=== PATIENT | male | born 1930 | race Caucasian/White ===

== ENCOUNTER 2018-01-08 19:36 | Emergency (ER) | payer MEDICARE ==
[2018-01-08 19:51] VITALS: PULSE 80; RESP 14; TEMP 98.5; O2SAT 97
[2018-01-08 20:37] LABS: BASO # 0.1 K/uL (0.0-0.2); EOS # 0.1 K/uL (0.0-0.7); EOS % 1.2 % (0.0-4.0); HEMOGLOBIN 10.2 g/dL (12.0-18.0); LYMPH # 2.5 K/uL (1.0-4.3); LYMPH % 35.6 % (20.0-40.0); MEAN CELL VOLUME 78.2 fL (80.0-94.0); MEAN CORPUSCULAR HEMOGLOBIN 25.4 pg (27.0-31.0); MEAN CORPUSCULAR HGB CONC 32.5 g/dL (33.0-37.0); MEAN PLATELET VOLUME 8.1 fL (7.2-11.7); MONO # 0.6 K/uL (0.0-0.8); MONO % 8.7 % (0.0-10.0); NEUT # 3.7 K/uL (1.8-7.0); NEUT % 53.5 % (50.0-75.0); RED CELL DISTRIBUTION WIDTH 16.6 % (11.5-14.5); WHITE BLOOD COUNT 6.9 K/uL (4.8-10.8)
[2018-01-08 20:49] LABS: ALB/GLOB RATIO 1.3 (1.0-2.1); ALBUMIN 4.5 g/dL (3.5-5.0); ALT/SGPT 40 U/L (21-72); AST/SGOT 41 U/L (17-59); BLOOD UREA NITROGEN 18 mg/dL (9-20); CALCIUM 9.6 mg/dl (8.6-10.4); GFR NON-AFRICAN AMERICAN > 60
[2018-01-08 20:54] LABS: PROTHROMBIN TIME 11.4 SECONDS (9.7-12.2)
--- NOTE | 2018-01-08 21:06 | C.PDOC ---
History Of Present Illness 87 y/o male, w/PMhx of HTN, presents to the ER complaining of frontal headache which has been present for the past 1 day. Patient states that the pain is very mild. Patient reports that he usually never gets a headache, he decided to check his bp which was in the 230's/110's. Then, he took his normally scheduled bp medication and 1 extra pill which he missed in the morning today. Denies having associated vision changes, nausea, vomiting, CP, and SOB. Time Seen by Provider: 01/08/18 20:35 Chief Complaint (Nursing): High Blood Pressure History Per: Patient History/Exam Limitations: no limitations Onset/Duration Of Symptoms: Days Current Symptoms Are (Timing): Still Present Severity: Moderate Past Medical History Reviewed: Historical Data, Nursing Documentation, Vital Signs Vital Signs: Last Vital Signs Temp 98.5 F 01/08/18 19:48 Pulse 80 01/08/18 19:48 Resp 14 01/08/18 19:48 BP 230/87 H 01/08/18 19:48 Pulse Ox 97 01/08/18 19:48 - Medical History PMH: HTN Surgical History: No Surg Hx Family History: States: No Known Family Hx - Social History Hx Alcohol Use: Yes Hx Substance Use: No - Immunization History Hx Tetanus Toxoid Vaccination: No Hx Influenza Vaccination: Yes Hx Pneumococcal Vaccination: No Review Of Systems Except As Marked, All Systems Reviewed And Found Negative. Constitutional: Negative for: Fever, Chills Cardiovascular: Negative for: Chest Pain Respiratory: Negative for: Shortness of Breath Gastrointestinal: Negative for: Nausea, Vomiting Neurological: Positive for: Headache Physical Exam - Physical Exam Additional Physical Exam Comments: Constitutional: No acute distress. Head: Normocephalic. Atraumatic. Eyes: PERRL. ENT: Moist mucous membranes. Neck: Supple. Cardiovascular: Regular rate. Radial pulse 2+ bilaterally. Chest: No tenderness. Respiratory: Clear to auscultation bilaterally. GI: Soft. Nontender. Nondistended. Back: No CVA tenderness. Musculoskeletal: No tenderness or swelling of extremities. Skin: No rash. Neurologic: Alert, no focal deficit. ED Course And Treatment - Laboratory Results Result Diagrams: 01/08/18 20:26 01/08/18 20:26 O2 Sat by Pulse Oximetry: 97 (RA) Pulse Ox Interpretation: Normal - CT Scan/US CT Head Other Rad Studies (CT/US): Read By Radiologist CT/US Interpretation: Name:ROMAIN BLACK Exam Date:Jan 08, 2018 9:56:42 PM EDT. Modality Type:CT\SR. Description:CT - BRAIN. Gender:M Laterality:Not applicable. :32 Referring Physician:Chauncey Calderon). EXAM: CT Head Without IV contrast. CLINICAL HISTORY: Headache. TECHNIQUE: Axial computed tomography images of the head/brain without intravenous contrast. COMPARISON: None provided. FINDINGS: BRAIN. No acute intraparenchymal hemorrhage. No mass lesion. No CT evidence for acute territorial infarct. No midline shift or extra-axial collections. VENTRICLES: No hydrocephalus. ORBITS: The orbits are unremarkable. SINUSES AND MASTOIDS: The paranasal sinuses and mastoid air cells are clear. BONES: No fracture. IMPRESSION: No acute intracranial abnormality. . Electronically signed on Jan 08, 2018 10:20:30 PM EDT by: Juan Spring M.D., Certified by [facility] Medical Decision Making Medical Decision Making: Plan: --Labs --EKG --CT-Head Patient in no distress. Discharged home, f/u PMD, return to ED for worsening pain, vision change, vomiting, chest pain, dyspnea, or any other problem. Disposition - Disposition Disposition: HOME/ ROUTINE Disposition Time: 22:56 Condition: STABLE Instructions: High Blood Pressure in Adults Forms: [facility] ([place]) - Clinical Impression Clinical Impression: Hypertension - Scribe Statement The provider has reviewed the documentation as recorded by the Emma Chapa Provider Attestation: All medical record entries made by the Emma were at my direction and personally dictated by me. I have reviewed the chart and agree that the record accurately reflects my personal performance of the history, physical exam, medical decision making, and the department course for this patient. I have also personally directed, reviewed, and agree with the discharge instructions and disposition.
[2018-01-08 22:58] VITALS: BP 188/86
--- NOTE | 2018-01-09 07:45 | CT ---
Date of service: 01/08/2018 PROCEDURE: CT HEAD WITHOUT CONTRAST. HISTORY: Headache. Hypertension. COMPARISON: None available. TECHNIQUE: Axial computed tomography images were obtained through the head/brain without intravenous contrast. Radiation dose: Total exam DLP = 1169 mGy-cm. This CT exam was performed using one or more of the following dose reduction techniques: Automated exposure control, adjustment of the mA and/or kV according to patient size, and/or use of iterative reconstruction technique. FINDINGS: HEMORRHAGE: No intracranial hemorrhage. BRAIN: No mass effect or edema. Scattered focal lucencies in the subcortical and periventricular white matter suggestive for chronic microvascular ischemic change. Punctate left basal ganglia lacunar infarct. VENTRICLES: Unremarkable. No hydrocephalus. CALVARIUM: Unremarkable. PARANASAL SINUSES: Unremarkable as visualized. No significant inflammatory changes. MASTOID AIR CELLS: Unremarkable as visualized. No inflammatory changes. OTHER FINDINGS: Soft tissue swelling overlying the left parietal cranium. IMPRESSION: No acute intracranial abnormality. Chronic microvascular ischemic changes. If symptoms persists, consider correlation with MRI. These findings were preliminarily reported on 01/08/2018 at 10:[address] Juan Spring from [facility].
--- NOTE | 2018-01-10 08:04 | CARD ---
APPROVED REPORT Date of service: 01/08/2018 EKG Measurement Heart [id number] <Conclusion> Sinus rhythm with 1st degree AV block Otherwise normal ECG
== END 2018-01-08 23:05 | disposition home or self-care (01) ==
LOC: C.ER 19:36
DX: R51 Headache (principal)

== ENCOUNTER 2018-07-16 13:42 | Inpatient (IN) | payer MEDICARE ==
--- NOTE | 2018-07-16 15:40 | C.PDOC ---
History Of Present Illness 87 year old male presents to ED with complaint of dizziness, SOB, and dark stool for the past week. He states that he has been taking Pepto-Bismol for his dark stools. Patient was sent to the ED by his PMD (Dr. Orta). Patient was recently told that he has anemia. Patient also complains of stomach discomfort. Patient also reports that he had an endoscopy done by Dr. Keys. He also reports that he had a cardiac work-up done 1 month ago by his chemistry instructor, Dr. Mejia, and that everything was normal. Patient denies nausea, vomiting, fever, and chills. Time Seen by Provider: 07/16/18 14:49 Chief Complaint (Nursing): Abdominal Pain History Per: Patient, Family () History/Exam Limitations: no limitations Onset/Duration Of Symptoms: Days (7) Current Symptoms Are (Timing): Still Present Location Of Pain/Discomfort: Diffuse Radiation Of Pain To:: None Quality Of Discomfort: Other (discomfort) Associated Symptoms: Other (dark stools, dizziness, SOB). denies: Fever, Ch ills, Nausea, Vomiting, Diarrhea Exacerbating Factors: None Alleviating Factors: None Past Medical History Reviewed: Historical Data, Nursing Documentation, Vital Signs Vital Signs: Last Vital Signs Temp 97.6 F 07/16/18 15:08 Pulse 48 L 07/16/18 15:08 Resp 18 07/16/18 15:08 BP Pulse Ox 100 07/16/18 15:08 - Medical History PMH: Anemia, HTN Denies: Chronic Kidney Disease Surgical History: No Surg Hx Family History: States: Unknown Family Hx - Social History Hx Alcohol Use: Yes Hx Substance Use: No - Immunization History Hx Tetanus Toxoid Vaccination: No Hx Influenza Vaccination: Yes Hx Pneumococcal Vaccination: No Review Of Systems Constitutional: Negative for: Fever, Chills Respiratory: Positive for: Shortness of Breath Gastrointestinal: Positive for: Abdominal Pain, Melena. Negative for: Nausea, Vomiting, Diarrhea Neurological: Positive for: Dizziness Physical Exam - Physical Exam Appears: Non-toxic, No Acute Distress Skin: Warm, Dry, Jaundice Head: Atraumatic, Normacephalic Eye(s): bilateral: Normal Inspection, PERRL, EOMI Oral Mucosa: Moist Neck: Normal ROM, Supple Chest: Symmetrical, No Deformity Cardiovascular: Murmur Respiratory: No Accessory Muscle Use, No Rales, No Rhonchi, No Wheezing Gastrointestinal/Abdominal: Soft, No Tenderness, Distention, Ascites Back: Normal Inspection, No CVA Tenderness Extremity: Normal ROM, Other (2-3+ pitting edema) Pulses: Left Dorsalis Pedis: Normal, Right Dorsalis Pedis: Normal Neurological/Psych: Oriented x3, Normal Speech, Normal Cognition ED Course And Treatment - Laboratory Results Result Diagrams: 07/21/18 07:02 07/21/18 07:02 O2 Sat by Pulse Oximetry: 100 (in RA) Pulse Ox Interpretation: Normal Medical Decision Making Medical Decision Making: Plan: Abdomen/Pelvis CT , EKG, and CXR ordered for patient Labs ordered with CMP, CBC, and UA Patient states that he was seen by his PMD for the dark stools and had a fecal occult test which was negative. Patient states that he has been taking Pepto Bismol over the past week and is making the stool dark. The case was discussed wit Dr. Joe Acuna who agrees to admit the patient to his service. Disposition - Disposition Disposition: HOSPITALIZED Disposition Time: 18:50 Condition: STABLE - POA Present On Arrival: None - Clinical Impression Clinical Impression: Hypertension, Hyperkalemia, Anemia, Dark stools - PA / ROLL WEIGHER / Resident Statement MD/DO has reviewed & agrees with the documentation as recorded. (Indira Phan) - Scribe Statement The provider has reviewed the documentation as recorded by the Scribe (Indira Phan) All medical record entries made by the Scribe were at my direction and personally dictated by me. I have reviewed the chart and agree that the record accurately reflects my personal performance of the history, physical exam, medical decision making, and the department course for this patient. I have also personally directed, reviewed, and agree with the discharge instructions and disposition.
[2018-07-16 16:04] LABS: BASO # 0.1 K/uL (0.0-0.2); EOS % 0.6 % (0.0-4.0); HEMOGLOBIN 9.1 g/dL (12.0-18.0); LYMPH # 1.4 K/uL (1.0-4.3); MEAN CELL VOLUME 79.1 fL (80.0-94.0); MEAN CORPUSCULAR HEMOGLOBIN 26.7 pg (27.0-31.0); MEAN CORPUSCULAR HGB CONC 33.7 g/dL (33.0-37.0); MEAN PLATELET VOLUME 8.1 fL (7.2-11.7); MONO # 0.5 K/uL (0.0-0.8); MONO % 8.5 % (0.0-10.0); NEUT # 4.2 K/uL (1.8-7.0); NEUT % 66.9 % (50.0-75.0); RBC 3.4 Mil/uL (4.40-5.90); RED CELL DISTRIBUTION WIDTH 15.8 % (11.5-14.5); WHITE BLOOD COUNT 6.2 K/uL (4.8-10.8)
[2018-07-16 16:11] LABS: PROTHROMBIN TIME 11.3 SECONDS (9.7-12.2)
--- NOTE | 2018-07-16 16:25 | RAD ---
Date of service: 07/16/2018 PROCEDURE: CHEST RADIOGRAPH, 1 VIEW HISTORY: Abdominal pain COMPARISON: None available. FINDINGS: LUNGS: The lungs are well inflated and clear. PLEURA: No pneumothorax or pleural effusion. CARDIOVASCULAR: There is moderate cardiomegaly. No aortic atherosclerotic calcifications present. OSSEOUS STRUCTURES: Within normal limits for the patient's age. VISUALIZED UPPER ABDOMEN: Normal. OTHER FINDINGS: None. IMPRESSION: No active pulmonary disease. Moderate cardiomegaly.
[2018-07-16 16:33] LABS: ALB/GLOB RATIO 1.4 (1.0-2.1); ALBUMIN 4.3 g/dL (3.5-5.0); ALT/SGPT 34 U/L (21-72); AST/SGOT 50 U/L (17-59); BLOOD UREA NITROGEN 24 mg/dL (9-20); CALCIUM 9.4 mg/dl (8.6-10.4); GFR NON-AFRICAN AMERICAN 44; LIPASE 164 U/L (23-300)
[2018-07-16 16:39] LABS: B-TYPE NATRIURETIC PEPTIDE 2120 pg/mL (0-900)
[2018-07-16] MEDS ORDERED: Albuterol 0.083% Inhal Sol (2.5 mg/3 mL) UD INH STA (17:08)
[2018-07-16] MEDS ORDERED: Calcium Gluconate 4.65 mEq/10 ml Inj IVP STA (17:08)
[2018-07-16] MEDS ORDERED: Albuterol 0.083% Inhal Sol (2.5 mg/3 mL) UD ONE ×2 (17:43→17:47)
[2018-07-16] MEDS ORDERED: Iodixanol 320 mg/ml 150 ml Bottle IV ONE (18:15)
[2018-07-16 23:02] LABS: BLOOD UREA NITROGEN 21 mg/dL (9-20); CALCIUM 9.1 mg/dl (8.6-10.4); GFR NON-AFRICAN AMERICAN 52
[2018-07-17 04:49] LABS: URINE BILIRUBIN NEGATIVE (NEGATIVE); URINE BLOOD NEGATIVE (NEGATIVE); URINE CLARITY Clear (Clear); URINE COLOR YELLOW (YELLOW); URINE GLUCOSE (UA) NEGATIVE (Normal); URINE LEUKOCYTE ESTERASE NEGATIVE Leu/uL (Negative); URINE PROTEIN 30 mg/dL (NEGATIVE); URINE UROBILINOGEN 0.2 mg/dL (0.2-1.0)
--- NOTE | 2018-07-17 06:42 | CON ---
DATE: 07/16/2018 CARDIOLOGY CONSULTATION REASON FOR CONSULTATION: Symptomatic bradycardia. HISTORY OF PRESENT ILLNESS: The patient is an 87-year-old male who has a history of anemia, underwent upper and lower endoscopy as an outpatient, but does not recall what was found exactly on him. The patient also is being followed by his Community Organization Worker, Dr. Mejia, but denies having any cardiac catheterization or requiring any coronary intervention in the past. The patient presented with dizziness and weakness as well as easy fatigability after any minimal exertion. In the emergency room, the patient was found to be in sinus rhythm with Mobitz I second-degree AV block with a heart rate in the upper 50s and lower 60s. The patient denies any syncope and does not recall any palpitation. The patient does report black stools; however, he says this is not a new finding for him, and he had been reporting black stool in the past. SOCIAL HISTORY: The patient is nonsmoker, nondrinker. and lives with his . MEDICATIONS: The patient has received clonidine 0.2 mg in the emergency room, sublingual nitroglycerin and albuterol inhaler. The patient's home medications include clonidine, Januvia, Protonix, Coreg, valsartan/hydrochlorothiazide, Aldactone, minoxidil, hydralazine, and baby aspirin. REVIEW OF SYSTEMS: No hematemesis. No fever or chills. No syncope. No retrosternal chest pain. PHYSICAL EXAMINATION: GENERAL: The patient is an elderly male who does not appear to be in acute distress. VITAL SIGNS: Initial blood pressure on admission was 207/86, the last most recent blood pressure is 183/93, heart rate 48, and temperature 97.6. HEENT: Pale conjunctivae. CHEST: Clear. HEART: S1 and S2, regular. ABDOMEN: Soft. EXTREMITIES: No edema. LABORATORY DATA: EKG revealed sinus bradycardia at the rate of 52, Mobitz I second-degree AV block. Chest x-ray report: No active pulmonary disease. Mild cardiomegaly. Head CT scan done in January 2018: No acute findings at that time. Chronic microvascular ischemic changes. ASSESSMENT: 1. Uncontrolled hypertension. 2. 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 3. Chronic anemia. 4. Hyperkalemia. The patient's potassium is 6.1. 5. Rule out underlying congestive heart failure. The patient's proBNP is 2120. RECOMMENDATIONS: Sinus bradycardia and Mobitz I second-degree AV block could be related to the patient's current clonidine and beta-blockers and neither should be resumed. The patient's hyperkalemia could also be related to Aldactone, and that also should be discontinued. I will hold on any antiplatelet or anticoagulation until anemia workup is completed. In the meantime, I will administer Kayexalate 15 g p.o. now. Scheduled the patient for an echocardiogram. Obtain TSH level and obtain carotid Doppler. Repeat SMA-7 in the a.m. Darin Estes MD
[2018-07-17 08:01] LABS: BASO % 0.9 % (0.0-2.0); EOS % 0.8 % (0.0-4.0); HEMOGLOBIN 9.1 g/dL (12.0-18.0); LYMPH # 1.4 K/uL (1.0-4.3); LYMPH % 27.1 % (20.0-40.0); MEAN CELL VOLUME 80.2 fL (80.0-94.0); MEAN CORPUSCULAR HEMOGLOBIN 26.9 pg (27.0-31.0); MEAN CORPUSCULAR HGB CONC 33.6 g/dL (33.0-37.0); MEAN PLATELET VOLUME 8.4 fL (7.2-11.7); MONO # 0.6 K/uL (0.0-0.8); MONO % 11.6 % (0.0-10.0); NEUT % 59.6 % (50.0-75.0); RBC 3.39 Mil/uL (4.40-5.90); RED CELL DISTRIBUTION WIDTH 15.9 % (11.5-14.5); WHITE BLOOD COUNT 5.1 K/uL (4.8-10.8)
[2018-07-17 10:17] LABS: CALCIUM 9.6 mg/dl (8.6-10.4)
[2018-07-17] MEDS: Pantoprazole 40 mg EC Tab PO SCH (11:26)
[2018-07-17] MEDS ORDERED: Atropine 0.4 mg/ml Inj (1 mL) IV STA (12:26)
--- NOTE | 2018-07-17 12:26 | CT ---
Date of service: 07/16/2018 PROCEDURE: CT Abdomen and Pelvis with and without intravenous contrast HISTORY: diffuse pain, jaundice, ascites. COMPARISON: None. TECHNIQUE: Axial images of the abdomen were obtained in the pre contrast, portal venous and delayed phases of enhancement. Coronal and sagittal reformats were generated. Contrast dose: Radiation dose: Total exam DLP = 857.34 mGy-cm. This CT exam was performed using one or more of the following dose reduction techniques: Automated exposure control, adjustment of the mA and/or kV according to patient size, and/or use of iterative reconstruction technique. FINDINGS: LOWER THORAX: Small pericardial effusion. LIVER: Unremarkable. No gross lesion or ductal dilatation. GALLBLADDER AND BILE DUCTS: Unremarkable. PANCREAS: Unremarkable. No gross lesion or ductal dilatation. SPLEEN: Unremarkable. ADRENALS: Unremarkable. No mass. KIDNEYS AND URETERS: Severe bilateral hydroureteronephrosis. VASCULATURE: Unremarkable. No aortic aneurysm. No aortic atherosclerotic calcification or mural plaque present. BOWEL: Colonic diverticulosis. No obstruction. No gross mural thickening. APPENDIX: Normal appendix. PERITONEUM: Unremarkable. No free fluid. No free air. LYMPH NODES: Unremarkable. No enlarged lymph nodes. BLADDER: Bladder distention and trabeculation formation.. REPRODUCTIVE: Unremarkable. BONES: No acute fracture. OTHER FINDINGS: None. IMPRESSION: Chronic bladder outlet obstruction with severe bladder distention, trabeculation formation and cellule formation. Associated severe bilateral hydroureteronephrosis.
--- NOTE | 2018-07-17 15:06 | CP.PCM.CON ---
<AndriaAugie ching - Last Filed: 07/17/18 16:40> History of Present Illness - History of Present Illness History of Present Illness: Critical Care Consult Note for Dr. Waddell Patient is an 87 year old male with PMHx HTN, DM, and anemia, who says he initially presented to [facility] ED complaining of hypertension and dizziness for the past week. Patient states he has history of HTN and takes his meds daily. Patient states he took his blood pressure at a stand-alone BP machine in a store and noted SBP to be over 220 one week ago. Patient then went to another BP machine and SBP noted to be in 230s. Patient did nothing at this time, but states that over the next week he noticed himself feeling dizzy when he would stand up from a seated position. Due to persistent symptoms, patient came to ED and BP was found to be elevated and patient admitted for symptomatic hypertensive urgency. Patient states that today he has not felt any symptoms- denies dizziness, headache, SOB, n/v/d, numbness or tingling. Residential Recycle Driver, Dr. Peterson, contacted for heart block seen on bowling alley refinisher and ICU accepted patient for monitoring. He remains asymptomatic at this time. PMHx: HTN, DM, and anemia Surgical Hx: Denies Allergies: NKA Meds: Reviewed as per MAR Family hx: Denies PMD: Pt does not remember PMD name Review of Systems - Constitutional Constitutional: absent: Chills, Fever - EENT Eyes: absent: Diplopia, Photophobia Nose/Mouth/Throat: absent: Nasal Congestion, Nasal Discharge - Cardiovascular Cardiovascular: absent: Chest Pain, Dyspnea - Respiratory Respiratory: absent: Cough, Hemoptysis - Gastrointestinal Gastrointestinal: absent: Abdominal Pain, Nausea, Vomiting - Musculoskeletal Musculoskeletal: absent: Muscle Weakness, Stiffness, Tingling - Neurological Neurological: absent: Dizziness, Numbness, Weakness - Psychiatric Psychiatric: absent: Anxiety, Depression - Hematologic/Lymphatic Hematologic: absent: Easy Bleeding, Easy Bruising Past Patient History - Past Medical History & Family History Past Medical History?: Yes - Past Social History Smoking Status: Never Smoked - CARDIAC Hx Hypertension: Yes - RENAL Hx Chronic Kidney Disease: No - ENDOCRINE/METABOLIC Hx Endocrine Disorders: Yes Hx Diabetes Mellitus Type 2: Yes - HEMATOLOGICAL/ONCOLOGICAL Hx Blood Disorders: Yes Hx Anemia: Yes - INTEGUMENTARY Hx Dermatological Problems: No - MUSCULOSKELETAL/RHEUMATOLOGICAL Hx Musculoskeletal Disorders: No Hx Falls: No - GASTROINTESTINAL Hx Gastrointestinal Disorders: No - GENITOURINARY/GYNECOLOGICAL Hx Genitourinary Disorders: No - PSYCHIATRIC Hx Substance Use: No - SURGICAL HISTORY Hx Surgeries: No - ANESTHESIA Hx Anesthesia: No Meds Allergies/Adverse Reactions: Allergies Allergy/AdvReac Type Severity Reaction Status Date / Time No Known Allergies Allergy Unverified 01/08/18 19:51 - Medications Medications: Current Medications Aspirin (Aspirin Chewable) 81 mg PO DAILY [facility] Last Admin: 07/17/18 11:27 Dose: 81 mg Pantoprazole Sodium (Protonix Ec Tab) 40 mg PO DAILY [facility] Last Admin: 07/17/18 11:26 Dose: 40 mg Pneumococcal Polyvalent Vaccine (Pneumovax 23 Vaccine) 0.5 ml IM .ONCE ONE Stop: 07/19/18 10:01 Sitagliptin Phosphate (Januvia) 100 mg PO DAILY [facility] Last Admin: 07/17/18 11:27 Dose: 100 mg Physical Exam - Constitutional Appears: Non-toxic, No Acute Distress - Head Exam Head Exam: ATRAUMATIC, NORMOCEPHALIC - Eye Exam Eye Exam: EOMI, Normal appearance - ENT Exam ENT Exam: Mucous Membranes Moist - Respiratory Exam Respiratory Exam: Clear to Auscultation Bilateral, NORMAL BREATHING PATTERN. absent: Rhonchi, Wheezes - Cardiovascular Exam Cardiovascular Exam: REGULAR RHYTHM, +S1, +S2 - GI/Abdominal Exam GI & Abdominal Exam: Normal Bowel Sounds, Soft. absent: Tenderness - Neurological Exam Neurological exam: Alert, CN II-XII Intact, Oriented x3 - Psychiatric Exam Psychiatric exam: Normal Affect, Normal Mood - Skin Skin Exam: Dry, Intact Results - Vital Signs Recent Vital Signs: Last Vital Signs Temp 97.8 F 07/17/18 13:10 Pulse 51 L 07/17/18 14:30 Resp 19 07/17/18 14:30 BP 207/70 H 07/17/18 14:30 Pulse Ox 100 07/17/18 14:30 - Labs Result Diagrams: 07/17/18 07:49 07/17/18 09:58 Labs: Laboratory Results - last 24 hr 07/16/18 07/16/18 07/16/18 15:59 15:59 15:59 WBC 6.2 RBC 3.40 L Hgb 9.1 L Hct 26.9 L MCV 79.1 L MCH 26.7 L MCHC 33.7 RDW 15.8 H Plt Count 265 MPV 8.1 Neut % (Auto) 66.9 Lymph % (Auto) 23.0 [place] % (Auto) 8.5 Eos % (Auto) 0.6 Baso % (Auto) 1.0 Neut # (Auto) 4.2 Lymph # (Auto) 1.4 [place] # (Auto) 0.5 Eos # (Auto) 0.0 Baso # (Auto) 0.1 PT 11.3 INR 1.0 APTT 43 H Sodium 130 L Potassium 6.1 H Chloride 100 Carbon Dioxide 20 L Anion Gap 16 BUN 24 H Creatinine 1.5 Est GFR ( Amer) 54 Est GFR (Non-Af Amer) 44 POC Glucose (mg/dL) Random Glucose 76 D Calcium 9.4 Total Bilirubin 0.2 AST 50 ALT 34 Alkaline Phosphatase 58 Troponin I < 0.0120 NT-Pro-B Natriuret Pep 2120 H Total Protein 7.4 Albumin 4.3 Globulin 3.1 Albumin/Globulin Ratio 1.4 Lipase 164 TSH 3rd Generation Urine Color Urine Clarity Urine pH Ur Specific [place] Urine Protein Urine Glucose (UA) Urine Ketones Urine Blood Urine Nitrate Urine Bilirubin Urine Urobilinogen Ur Leukocyte Esterase Urine WBC (Auto) Urine RBC (Auto) 07/16/18 07/16/18 07/17/18 21:39 22:35 04:37 WBC RBC Hgb Hct MCV MCH MCHC RDW Plt Count MPV Neut % (Auto) Lymph % (Auto) [place] % (Auto) Eos % (Auto) Baso % (Auto) Neut # (Auto) Lymph # (Auto) [place] # (Auto) Eos # (Auto) Baso # (Auto) PT INR APTT Sodium 130 L Potassium 5.2 Chloride 105 Carbon Dioxide 20 L Anion Gap 10 BUN 21 H Creatinine 1.3 Est GFR ( Amer) > 60 Est GFR (Non-Af Amer) 52 POC Glucose (mg/dL) 124 H Random Glucose 61 L Calcium 9.1 Total Bilirubin AST ALT Alkaline Phosphatase Troponin I NT-Pro-B Natriuret Pep Total Protein Albumin Globulin Albumin/Globulin Ratio Lipase TSH 3rd Generation 26.00 H Urine Color Yellow Urine Clarity Clear Urine pH 6.0 Ur Specific [place] 1.010 Urine Protein 30 Urine Glucose (UA) Negative Urine Ketones Negative Urine Blood Negative Urine Nitrate Negative Urine Bilirubin Negative Urine Urobilinogen 0.2 Ur Leukocyte Esterase Negative Urine WBC (Auto) 1 Urine RBC (Auto) 1 07/17/18 07/17/18 07/17/18 06:29 07:49 09:58 WBC 5.1 RBC 3.39 L Hgb 9.1 L Hct 27.1 L MCV 80.2 MCH 26.9 L MCHC 33.6 RDW 15.9 H Plt Count 257 MPV 8.4 Neut % (Auto) 59.6 Lymph % (Auto) 27.1 [place] % (Auto) 11.6 H Eos % (Auto) 0.8 Baso % (Auto) 0.9 Neut # (Auto) 3.0 Lymph # (Auto) 1.4 [place] # (Auto) 0.6 Eos # (Auto) 0.0 Baso # (Auto) 0.0 PT INR APTT Sodium 130 L Potassium 5.7 H Chloride 103 Carbon Dioxide 20 L Anion Gap 13 BUN 25 H Creatinine 1.5 Est GFR ( Amer) 54 Est GFR (Non-Af Amer) 44 POC Glucose (mg/dL) 103 Random Glucose 98 D Calcium 9.6 Total Bilirubin AST ALT Alkaline Phosphatase Troponin I NT-Pro-B Natriuret Pep Total Protein Albumin Globulin Albumin/Globulin Ratio Lipase TSH 3rd Generation Urine Color Urine Clarity Urine pH Ur Specific [place] Urine Protein Urine Glucose (UA) Urine Ketones Urine Blood Urine Nitrate Urine Bilirubin Urine Urobilinogen Ur Leukocyte Esterase Urine WBC (Auto) Urine RBC (Auto) Assessment & Plan - Assessment and Plan (Free Text) Assessment: 87 year old male admitted to hospital for symptomatic hypertensive urgency, found to have 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 Cardio Second Degree Mobitz Type I Heart Block -Cardiology on consult, Dr. Peterson -Cardiac monitoring -Asymptomatic at this time -Patient likely requiring pacemaker placement -Plan for temporary transvenous pacemaker placement per cardio recs Hypertensive Urgency -Patient asymptomatic -Goal BP <160/100 with reduction of MAP to aprox 100mmHG (25-30% reduction) over next several hours -Monitor for symptoms, monitor HR Pulm -Saturating well on room air -Maintain SPO2>92% Heme/ID -HgB 9.1 - stable compared to yesterday (12/02) -Monitor daily CBC Endo DM -Home Januvia -Accuchecks ACHS -Hypoglycemia protocol Nephro -Adequate urine output -Monitor I and Os Neuro -A and O x3 GI Questionable GI bleed -Dark stools noted per ED note, but patient denies any kaylah blood or dark tarry stools -HgB stable 9.1, no changes from yesterday -Monitor CBC -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 Chemical anticoagulation c/i 2/2 questionable GI bleed -Protonix 40 mg PO daily Assessment and plan d/w Dr. Bairon Vegas, PGY-1 <Harman Waddell - Last Filed: 07/17/18 16:49> Meds - Medications Medications: Current Medications Aspirin (Aspirin Chewable) 81 mg PO DAILY [facility] Last Admin: 07/17/18 11:27 Dose: 81 mg Pantoprazole Sodium (Protonix Ec Tab) 40 mg PO DAILY [facility] Last Admin: 07/17/18 11:26 Dose: 40 mg Pneumococcal Polyvalent Vaccine (Pneumovax 23 Vaccine) 0.5 ml IM .ONCE ONE Stop: 07/19/18 10:01 Sitagliptin Phosphate (Januvia) 100 mg PO DAILY [facility] Last Admin: 07/17/18 11:27 Dose: 100 mg Results - Vital Signs Recent Vital Signs: Last Vital Signs Temp 97.8 F 07/17/18 16:00 Pulse 57 L 07/17/18 16:30 Resp 16 07/17/18 16:30 BP 164/72 H 07/17/18 16:30 Pulse Ox 99 07/17/18 16:30 - Labs Result Diagrams: 07/17/18 07:49 07/17/18 09:58 Labs: Laboratory Results - last 24 hr 07/16/18 07/16/18 07/17/18 21:39 22:35 04:37 WBC RBC Hgb Hct MCV MCH MCHC RDW Plt Count MPV Neut % (Auto) Lymph % (Auto) [place] % (Auto) Eos % (Auto) Baso % (Auto) Neut # (Auto) Lymph # (Auto) [place] # (Auto) Eos # (Auto) Baso # (Auto) Sodium 130 L Potassium 5.2 Chloride 105 Carbon Dioxide 20 L Anion Gap 10 BUN 21 H Creatinine 1.3 Est GFR ( Amer) > 60 Est GFR (Non-Af Amer) 52 POC Glucose (mg/dL) 124 H Random Glucose 61 L Calcium 9.1 TSH 3rd Generation 26.00 H Urine Color Yellow Urine Clarity Clear Urine pH 6.0 Ur Specific [place] 1.010 Urine Protein 30 Urine Glucose (UA) Negative Urine Ketones Negative Urine Blood Negative Urine Nitrate Negative Urine Bilirubin Negative Urine Urobilinogen 0.2 Ur Leukocyte Esterase Negative Urine WBC (Auto) 1 Urine RBC (Auto) 1 07/17/18 07/17/18 07/17/18 06:29 07:49 09:58 WBC 5.1 RBC 3.39 L Hgb 9.1 L Hct 27.1 L MCV 80.2 MCH 26.9 L MCHC 33.6 RDW 15.9 H Plt Count 257 MPV 8.4 Neut % (Auto) 59.6 Lymph % (Auto) 27.1 [place] % (Auto) 11.6 H Eos % (Auto) 0.8 Baso % (Auto) 0.9 Neut # (Auto) 3.0 Lymph # (Auto) 1.4 [place] # (Auto) 0.6 Eos # (Auto) 0.0 Baso # (Auto) 0.0 Sodium 130 L Potassium 5.7 H Chloride 103 Carbon Dioxide 20 L Anion Gap 13 BUN 25 H Creatinine 1.5 Est GFR ( Amer) 54 Est GFR (Non-Af Amer) 44 POC Glucose (mg/dL) 103 Random Glucose 98 D Calcium 9.6 TSH 3rd Generation Urine Color Urine Clarity Urine pH Ur Specific [place] Urine Protein Urine Glucose (UA) Urine Ketones Urine Blood Urine Nitrate Urine Bilirubin Urine Urobilinogen Ur Leukocyte Esterase Urine WBC (Auto) Urine RBC (Auto) 07/17/18 15:52 WBC RBC Hgb Hct MCV MCH MCHC RDW Plt Count MPV Neut % (Auto) Lymph % (Auto) [place] % (Auto) Eos % (Auto) Baso % (Auto) Neut # (Auto) Lymph # (Auto) [place] # (Auto) Eos # (Auto) Baso # (Auto) Sodium Potassium Chloride Carbon Dioxide Anion Gap BUN Creatinine Est GFR ( Amer) Est GFR (Non-Af Amer) POC Glucose (mg/dL) 143 H Random Glucose Calcium TSH 3rd Generation Urine Color Urine Clarity Urine pH Ur Specific [place] Urine Protein Urine Glucose (UA) Urine Ketones Urine Blood Urine Nitrate Urine Bilirubin Urine Urobilinogen Ur Leukocyte Esterase Urine WBC (Auto) Urine RBC (Auto) Attending/Attestation - Attestation I have personally seen and examined this patient.: Yes I have fully participated in the care of the patient.: Yes I have reviewed all pertinent clinical information: Yes Notes (Text): 07/17/18 16:48 Patient seen and examined. 87-year-old male transferred to intensive care unit for Mobitz type II heart block Patient complaining of dizziness In the intensive care unit. Heart rate in the upper 40s and 50s with normal blood pressure Hold clonidine for high blood pressure EPS consult
--- NOTE | 2018-07-17 17:11 | PN ---
DATE: 07/17/2018 SUBJECTIVE: I was called because the patient's heart rate in the 30s. The patient denied any symptoms while lying flat. He complains of dizziness when he stands or walked to the bathroom. No syncope. Monitor reveals Mobitz I second-degree AV block with 2:1 conduction. PHYSICAL EXAMINATION: VITAL SIGNS: Blood pressure 172/62, heart rate most recent 133, respiration 20. HEENT: Pale conjunctivae. CHEST: Clear. HEART: S1 and S2. Regular. EXTREMITIES: No edema. LABORATORY DATA: Today's SMA-7: Sodium 130, potassium 5.7, chloride 103, CO2 of 20, glucose 98, BUN 25, creatinine 1. Today's hemoglobin and hematocrit 9.1 and 27.1. White count and platelet count are within normal limits. ASSESSMENT: 1. Symptomatic bradycardia with Mobitz I, 2:1 atrioventricular block. 2. Anemia. 3. Questionable history of gastrointestinal bleeding. 4. Hyperkalemia. RECOMMENDATIONS: I did order stat atropine 0.5 mg IV push. I will hold the patient's blood pressure medications. I did request ICU evaluation from Dr. Waddell who already has seen the patient and I requested transfer to the ICU as soon as possible. I also requested a standby standard pacemaker and I will further discuss the case with Dr. Lowery, the it consultant classifier who is aware of the patient. Possible for temporary or permanent pacemaker need was discussed with the patient and his son at the bedside. However, final decision will be left to classifier, Dr. Lowery. aDrin Estes MD
[2018-07-17] MEDS: Nitroglycerin 50mg in D5W 50 MG/250 ML BOTTLE IV SCH (18:04)
--- NOTE | 2018-07-17 18:59 | CP.PCM.HP ---
Past Patient History - Past Medical History & Family History Past Medical History?: Yes - Past Social History Smoking Status: Never Smoked - CARDIAC Hx Hypertension: Yes - RENAL Hx Chronic Kidney Disease: No - ENDOCRINE/METABOLIC Hx Endocrine Disorders: Yes Hx Diabetes Mellitus Type 2: Yes - HEMATOLOGICAL/ONCOLOGICAL Hx Blood Disorders: Yes Hx Anemia: Yes - INTEGUMENTARY Hx Dermatological Problems: No - MUSCULOSKELETAL/RHEUMATOLOGICAL Hx Musculoskeletal Disorders: No Hx Falls: No - GASTROINTESTINAL Hx Gastrointestinal Disorders: No - GENITOURINARY/GYNECOLOGICAL Hx Genitourinary Disorders: No - PSYCHIATRIC Hx Substance Use: No - SURGICAL HISTORY Hx Surgeries: No - ANESTHESIA Hx Anesthesia: No Meds Allergies/Adverse Reactions: Allergies Allergy/AdvReac Type Severity Reaction Status Date / Time No Known Allergies Allergy Unverified 01/08/18 19:51 Physical Exam - Constitutional Appears: Well - Head Exam Head Exam: ATRAUMATIC, NORMAL INSPECTION, NORMOCEPHALIC - Eye Exam Eye Exam: EOMI, Normal appearance, PERRL Pupil Exam: NORMAL ACCOMODATION, PERRL - ENT Exam ENT Exam: Mucous Membranes Moist, Normal Exam - Neck Exam Neck exam: Positive for: Normal Inspection - Respiratory Exam Respiratory Exam: Decreased Breath Sounds - Cardiovascular Exam Cardiovascular Exam: REGULAR RHYTHM, +S1, +S2 - GI/Abdominal Exam GI & Abdominal Exam: Diminished Bowel Sounds, Soft - Rectal Exam Rectal Exam: Deferred - Neurological Exam Neurological exam: Oriented x3 Results - Vital Signs Recent Vital Signs: Last Vital Signs Temp 97.8 F 07/17/18 16:00 Pulse 68 07/17/18 18:04 Resp 16 07/17/18 18:04 BP 187/87 H 07/17/18 18:30 Pulse Ox 100 07/17/18 18:04 - Labs Result Diagrams: 07/17/18 07:49 07/17/18 09:58 Labs: Laboratory Results - last 24 hr 07/16/18 07/16/18 07/17/18 21:39 22:35 04:37 WBC RBC Hgb Hct MCV MCH MCHC RDW Plt Count MPV Neut % (Auto) Lymph % (Auto) [place] % (Auto) Eos % (Auto) Baso % (Auto) Neut # (Auto) Lymph # (Auto) [place] # (Auto) Eos # (Auto) Baso # (Auto) Sodium 130 L Potassium 5.2 Chloride 105 Carbon Dioxide 20 L Anion Gap 10 BUN 21 H Creatinine 1.3 Est GFR ( Amer) > 60 Est GFR (Non-Af Amer) 52 POC Glucose (mg/dL) 124 H Random Glucose 61 L Calcium 9.1 TSH 3rd Generation 26.00 H Urine Color Yellow Urine Clarity Clear Urine pH 6.0 Ur Specific [place] 1.010 Urine Protein 30 Urine Glucose (UA) Negative Urine Ketones Negative Urine Blood Negative Urine Nitrate Negative Urine Bilirubin Negative Urine Urobilinogen 0.2 Ur Leukocyte Esterase Negative Urine WBC (Auto) 1 Urine RBC (Auto) 1 07/17/18 07/17/18 07/17/18 06:29 07:49 09:58 WBC 5.1 RBC 3.39 L Hgb 9.1 L Hct 27.1 L MCV 80.2 MCH 26.9 L MCHC 33.6 RDW 15.9 H Plt Count 257 MPV 8.4 Neut % (Auto) 59.6 Lymph % (Auto) 27.1 [place] % (Auto) 11.6 H Eos % (Auto) 0.8 Baso % (Auto) 0.9 Neut # (Auto) 3.0 Lymph # (Auto) 1.4 [place] # (Auto) 0.6 Eos # (Auto) 0.0 Baso # (Auto) 0.0 Sodium 130 L Potassium 5.7 H Chloride 103 Carbon Dioxide 20 L Anion Gap 13 BUN 25 H Creatinine 1.5 Est GFR ( Amer) 54 Est GFR (Non-Af Amer) 44 POC Glucose (mg/dL) 103 Random Glucose 98 D Calcium 9.6 TSH 3rd Generation Urine Color Urine Clarity Urine pH Ur Specific [place] Urine Protein Urine Glucose (UA) Urine Ketones Urine Blood Urine Nitrate Urine Bilirubin Urine Urobilinogen Ur Leukocyte Esterase Urine WBC (Auto) Urine RBC (Auto) 07/17/18 15:52 WBC RBC Hgb Hct MCV MCH MCHC RDW Plt Count MPV Neut % (Auto) Lymph % (Auto) [place] % (Auto) Eos % (Auto) Baso % (Auto) Neut # (Auto) Lymph # (Auto) [place] # (Auto) Eos # (Auto) Baso # (Auto) Sodium Potassium Chloride Carbon Dioxide Anion Gap BUN Creatinine Est GFR ( Amer) Est GFR (Non-Af Amer) POC Glucose (mg/dL) 143 H Random Glucose Calcium TSH 3rd Generation Urine Color Urine Clarity Urine pH Ur Specific [place] Urine Protein Urine Glucose (UA) Urine Ketones Urine Blood Urine Nitrate Urine Bilirubin Urine Urobilinogen Ur Leukocyte Esterase Urine WBC (Auto) Urine RBC (Auto)
--- NOTE | 2018-07-17 20:15 | PN ---
DATE: 07/17/2018 LOCATION: ICU, bed 12. SUBJECTIVE: This is an 87-year-old male seen initially for GI consultation on 07/16/2018, reexamined again today in the intensive care unit early with Dr. Estes, the etl consultant in the case without reported chest pain or palpitation, but subsequent drop of heart rate with bradycardia. The entire chart is reviewed including the most recent lab results with hemoglobin of 9.1, hematocrit 27.1 with low indices but normal white blood cells and platelet count with sodium 130, potassium 5.7, CO2 content of 20 indicative of metabolic acidosis, BUN 25, creatinine 1.5 with blood glucose level of 98 with reported normal lipase level as well as normal liver function tests but increased TSH to 26. Most recently done CAT scan of the abdomen and pelvis, report is seen indicative of bladder outlet obstruction with severe bladder distention with severe bilateral hydronephrosis. PHYSICAL EXAMINATION: GENERAL: An 87-year-old male, appears to be awake, alert. VITAL SIGNS: Afebrile with pulse of 50, respiratory rate 14-16 with reported blood pressure of 156/80. HEENT: Pale, dry oral mucous membrane. Nonicteric sclerae. LUNGS: Few scattered crepitation. Decreased air entry at bases. HEART: Positive S1 and S2. ABDOMEN: Soft with mild generalized tenderness. No mass or organomegaly. No rebound tenderness or guarding. EXTREMITIES: Without significant clubbing, cyanosis or edema. NEUROLOGIC: No reported new neurological deficits, sensory or motor. IMPRESSION: 1. Recently reported melena which could be secondary to medication induced; however, the possibility of gastrointestinal blood loss, upper versus lower was raised. 2. Cardiac arrhythmias with bradycardia. 3. Abnormal CAT scan of the abdomen and pelvis. 4. Hypertension by history. 5. Electrolyte imbalance with hyponatremia, hyperkalemia with metabolic acidosis. 6. Dehydration with prerenal azotemia. 7. The possibility of urinary tract infection with renal stones was raised. SUGGESTIONS: 1. Continue current management. 2. Cancer markers. 3. Antireflux measures. 4. Further recommendation to follow. Shakila Dubose MD
--- NOTE | 2018-07-17 20:54 | CARD ---
APPROVED REPORT Date of service: 07/17/2018 EXAM: Two-dimensional and M-mode echocardiogram with Doppler and color Doppler. Other Information Quality : GoodRhythm : INDICATION Dizziness and Vertigo Dyspnea Congestive Heart Failure RISK FACTORS Hypertension 2D DIMENSIONS IVSd1.1 (0.7-1.1cm)LVDd5.3 (3.9-5.9cm) LVOT Diameter2.3 (1.8-2.4cm)PWd1.0 (0.7-1.1cm) LA Vplhpx95 (18-58mL)LVDs3.9 (2.5-4.0cm) FS (%) 26.0 %LVEF (%)64.0 (>50%) LVEF ([place])71 % M-Mode DIMENSIONS Left Atrium (MM)4.69 (2.5-4.0cm)IVSd0.77 (0.7-1.1cm) Aortic Root3.29 (2.2-3.7cm)LVDd5.98 (4.0-5.6cm) Aortic Cusp Exc.1.48 (1.5-2.0cm)PWd1.02 (0.7-1.1cm) FS (%) 52 %LVDs2.86 (2.0-3.8cm) LVEF (%)74 (>50%) Aortic Valve AoV Peak Txatvwmw106.9cm/sAoV VTI72.0cmAO Peak GR.24mmHg LVOT Peak Wgemktqv83.7cm/sLVOT VTI25.42cmAO Mean GR.14mmHg ASHLEY (VMAX)1.71gf3MMM (VTI)1.47cm2 Mitral Valve MV E Bsnllswd591.4cm/sMV A Pqbrkfyi403.5cm/sE/A ratio0.8 UEGO401.51 cm/s TDI Lateral E' Peak V11.77cm/sMedial E' Peak V6.83cm/sE/Lateral E'8.5 E/Medial E'14.7 Tricuspid Valve TR Peak Suuwepam423lh/sTR Peak Gr.74ybGbMANH05rlQp LEFT VENTRICLE The left ventricle is normal size. There is normal left ventricular wall thickness. The Ejection Fraction is 65-70%. There is normal LV segmental wall motion. Transmitral Doppler flow pattern is Grade I-abnormal relaxation pattern. RIGHT VENTRICLE The right ventricle is normal size. The right ventricular systolic function is normal. ATRIA The left atrium is moderately dilated. The right atrium size is normal. The interatrial septum is intact with no evidence for an atrial septal defect. AORTIC VALVE The aortic valve is trileaflet. The aortic valve is moderately calcified. There is mild aortic regurgitation. peak/mean avg of 25/14 mm of hg.mild as,ashley of 1.5 cmsq. MITRAL VALVE The mitral valve is thickened but opens well. Mitral regurgitation is moderate. TRICUSPID VALVE The tricuspid valve is normal in structure. There is mild to moderate tricuspid regurgitation. Right ventricular systolic pressure is estimated at 46 mmHg. There is moderate pulmonary hypertension. PULMONIC VALVE The pulmonary valve is normal in structure. GREAT VESSELS The aortic root is normal in size. ivc is mildly dilated. PERICARDIAL EFFUSION small posterior pericardial effusion noted. <Conclusion> The left ventricle is normal size. The Ejection Fraction is 65-70%. Transmitral Doppler flow pattern is Grade I-abnormal relaxation pattern. The left atrium is moderately dilated. The aortic valve is trileaflet. The aortic valve is moderately calcified. There is mild aortic regurgitation. peak/mean avg of 25/14 mm of hg.mild as,ashley of 1.5 cmsq. Mitral regurgitation is moderate. There is mild to moderate tricuspid regurgitation. Right ventricular systolic pressure is estimated at 46 mmHg. There is moderate pulmonary hypertension. ivc is mildly dilated. small posterior pericardial effusion noted.
--- NOTE | 2018-07-17 20:58 | CP.PCM.CON ---
History of Present Illness - History of Present Illness History of Present Illness: Cardiac-EP consult Re: AV block Dizziness Chart imaging reviewed Patient interviewed examined DW patient and daughter and 87 rich old admitted with severe systemic hypertension and exertional dizziness without syncope He was found to have a second degree Av block and slow heart rates and transferred to the ICU Past medical Hypertension Diabetes Mellitus Hyperlipidemia Azotemia Medications: reviewed Denied smoking alcohol drug abuse Exam No distress Lying in bed Normal venous pressures No bruits Clear lungs ?PMI Normal heart sounds No rub No edema EKG: sinus # telemetry: second degree AV block with heart rates in the twenties Labs: Creatinine 1.8 K 5.7 Neo Miranda has a bradyarrhythmia likely symptomatic with a second degree AV block with a type I periodicity The mechanism of decremental conduction include underlying degenerative sick sinus syndrome unmasked by medications (coreg/clonidine), electrolyte abnormalities (Potassium-?Type IV acidosis related to diabetes) and thyroid dysfunction (TSH 26) The need for a permanent pacemaker is a consideration if bradyarrhythmia persists once thyroid function is restored with replacement thyroxine and K+ is corrected (Lasix) The continued need for beta blockers/clonidine given the brittle severe systemic hypertension would be an additional reason to implant a permanent device Of note the reported dizziness and its correlation with the bradyarrhythmia is difficult to establish DW patient his and daughter at bedside options prognosis risks and procedures Past Patient History - Past Medical History & Family History Past Medical History?: Yes - Past Social History Smoking Status: Never Smoked - CARDIAC Hx Hypertension: Yes - RENAL Hx Chronic Kidney Disease: No - ENDOCRINE/METABOLIC Hx Endocrine Disorders: Yes Hx Diabetes Mellitus Type 2: Yes - HEMATOLOGICAL/ONCOLOGICAL Hx Blood Disorders: Yes Hx Anemia: Yes - INTEGUMENTARY Hx Dermatological Problems: No - MUSCULOSKELETAL/RHEUMATOLOGICAL Hx Musculoskeletal Disorders: No Hx Falls: No - GASTROINTESTINAL Hx Gastrointestinal Disorders: No - GENITOURINARY/GYNECOLOGICAL Hx Genitourinary Disorders: No - PSYCHIATRIC Hx Substance Use: No - SURGICAL HISTORY Hx Surgeries: No - ANESTHESIA Hx Anesthesia: No Meds Allergies/Adverse Reactions: Allergies Allergy/AdvReac Type Severity Reaction Status Date / Time No Known Allergies Allergy Unverified 01/08/18 19:51 - Medications Medications: Current Medications Aspirin (Aspirin Chewable) 81 mg PO DAILY [facility] Last Admin: 07/17/18 11:27 Dose: 81 mg Nitroglycerin/Dextrose (Nitroglycerin 50 Mg/250 Ml D5w) 50 mg in 250 mls @ 1.5 mls/hr IV .Q24H [facility]; Protocol Last Titration: 07/17/18 18:45 Dose: 20 mcg/min, 6 mls/hr Pantoprazole Sodium (Protonix Ec Tab) 40 mg PO DAILY [facility] Last Admin: 07/17/18 11:26 Dose: 40 mg Pneumococcal Polyvalent Vaccine (Pneumovax 23 Vaccine) 0.5 ml IM .ONCE ONE Stop: 07/19/18 10:01 Sitagliptin Phosphate (Januvia) 100 mg PO DAILY [facility] Last Admin: 07/17/18 11:27 Dose: 100 mg Results - Vital Signs Recent Vital Signs: Last Vital Signs Temp 98.5 F 07/17/18 20:00 Pulse 60 07/17/18 20:00 Resp 18 07/17/18 20:00 BP 173/82 H 07/17/18 20:00 Pulse Ox 98 07/17/18 20:00 - Labs Result Diagrams: 07/17/18 07:49 07/17/18 09:58 Labs: Laboratory Results - last 24 hr 07/16/18 07/16/18 07/17/18 21:39 22:35 04:37 WBC RBC Hgb Hct MCV MCH MCHC RDW Plt Count MPV Neut % (Auto) Lymph % (Auto) [place] % (Auto) Eos % (Auto) Baso % (Auto) Neut # (Auto) Lymph # (Auto) [place] # (Auto) Eos # (Auto) Baso # (Auto) Sodium 130 L Potassium 5.2 Chloride 105 Carbon Dioxide 20 L Anion Gap 10 BUN 21 H Creatinine 1.3 Est GFR ( Amer) > 60 Est GFR (Non-Af Amer) 52 POC Glucose (mg/dL) 124 H Random Glucose 61 L Calcium 9.1 TSH 3rd Generation 26.00 H Urine Color Yellow Urine Clarity Clear Urine pH 6.0 Ur Specific [place] 1.010 Urine Protein 30 Urine Glucose (UA) Negative Urine Ketones Negative Urine Blood Negative Urine Nitrate Negative Urine Bilirubin Negative Urine Urobilinogen 0.2 Ur Leukocyte Esterase Negative Urine WBC (Auto) 1 Urine RBC (Auto) 1 07/17/18 07/17/18 07/17/18 06:29 07:49 09:58 WBC 5.1 RBC 3.39 L Hgb 9.1 L Hct 27.1 L MCV 80.2 MCH 26.9 L MCHC 33.6 RDW 15.9 H Plt Count 257 MPV 8.4 Neut % (Auto) 59.6 Lymph % (Auto) 27.1 [place] % (Auto) 11.6 H Eos % (Auto) 0.8 Baso % (Auto) 0.9 Neut # (Auto) 3.0 Lymph # (Auto) 1.4 [place] # (Auto) 0.6 Eos # (Auto) 0.0 Baso # (Auto) 0.0 Sodium 130 L Potassium 5.7 H Chloride 103 Carbon Dioxide 20 L Anion Gap 13 BUN 25 H Creatinine 1.5 Est GFR ( Amer) 54 Est GFR (Non-Af Amer) 44 POC Glucose (mg/dL) 103 Random Glucose 98 D Calcium 9.6 TSH 3rd Generation Urine Color Urine Clarity Urine pH Ur Specific [place] Urine Protein Urine Glucose (UA) Urine Ketones Urine Blood Urine Nitrate Urine Bilirubin Urine Urobilinogen Ur Leukocyte Esterase Urine WBC (Auto) Urine RBC (Auto) 07/17/18 15:52 WBC RBC Hgb Hct MCV MCH MCHC RDW Plt Count MPV Neut % (Auto) Lymph % (Auto) [place] % (Auto) Eos % (Auto) Baso % (Auto) Neut # (Auto) Lymph # (Auto) [place] # (Auto) Eos # (Auto) Baso # (Auto) Sodium Potassium Chloride Carbon Dioxide Anion Gap BUN Creatinine Est GFR ( Amer) Est GFR (Non-Af Amer) POC Glucose (mg/dL) 143 H Random Glucose Calcium TSH 3rd Generation Urine Color Urine Clarity Urine pH Ur Specific [place] Urine Protein Urine Glucose (UA) Urine Ketones Urine Blood Urine Nitrate Urine Bilirubin Urine Urobilinogen Ur Leukocyte Esterase Urine WBC (Auto) Urine RBC (Auto)
[2018-07-17 22:01] LABS: ALB/GLOB RATIO 1.5 (1.0-2.1); CALCIUM 9.1 mg/dl (8.6-10.4)
[2018-07-18 06:47] LABS: BASO % 0.6 % (0.0-2.0); EOS % 0.4 % (0.0-4.0); HEMOGLOBIN 7.8 g/dL (12.0-18.0); LYMPH # 1.1 K/uL (1.0-4.3); LYMPH % 18.4 % (20.0-40.0); MEAN CELL VOLUME 81.1 fL (80.0-94.0); MEAN CORPUSCULAR HEMOGLOBIN 26.3 pg (27.0-31.0); MEAN CORPUSCULAR HGB CONC 32.4 g/dL (33.0-37.0); MEAN PLATELET VOLUME 8.4 fL (7.2-11.7); MONO # 0.7 K/uL (0.0-0.8); MONO % 11.9 % (0.0-10.0); NEUT # 4.1 K/uL (1.8-7.0); NEUT % 68.7 % (50.0-75.0); RBC 2.95 Mil/uL (4.40-5.90); RED CELL DISTRIBUTION WIDTH 16.1 % (11.5-14.5)
[2018-07-18 06:52] LABS: ALB/GLOB RATIO 1.5 (1.0-2.1); ALBUMIN 3.6 g/dL (3.5-5.0); CALCIUM 8.7 mg/dl (8.6-10.4)
[2018-07-18] MEDS ORDERED: Sodium Chloride 0.9% 1,000 ML IV ONE (09:56)
[2018-07-18] MEDS: Pantoprazole 40 mg EC Tab PO SCH (10:41)
[2018-07-18] MEDS ORDERED: Lidocaine 2% Jelly (30 ml) TOP ONE (10:50)
[2018-07-18] MEDS ORDERED: Pneumococcal 23-Valent Vaccine IM ONE (11:00)
[2018-07-18] MEDS ORDERED: Lidocaine 2% Jelly (Uro-Jet) TOP ONE ×2 (11:00)
--- NOTE | 2018-07-18 11:10 | CP.CCUPN ---
<Augie Vegas - Last Filed: 07/18/18 14:00> CCU Subjective - Physician Review Subjective (Free Text): 07/18/18 14:14 PGY-1 Critical Care Progress Note for Dr. Waddell Patient seen and examined at bedside. No acute events overnight. Patient denies any dizziness, headache, lightheadedness, n/v/d, abdominal pain. Pt does admit to abdominal distention. Terrell catheter inserted for urinary retention. CCU Objective - Vital Signs / Intake & Output Vital Signs (Last 4 hours): Vital Signs Temp Pulse Resp BP Pulse Ox 07/18/18 08:00 98.2 F 58 L 13 98 07/18/18 07:58 63 12 155/63 H 97 Intake and Output (Last 8hrs): Intake & Output 07/17/18 07/18/18 07/18/18 22:59 06:59 14:59 Intake Total 689 72 27 Output Total 400 Balance 289 72 27 Weight 162 lb 6 oz Intake: IV 110 Intake, IV Amount 39 72 27 Left Antecubital 39 72 27 Oral 540 Output: Urine 400 Urine, Voided 400 Other: # Voids Urine, Voided 0 # Bowel Movements 1 0 - Physical Exam Head: Positive for: Atraumatic, Normocephalic Pupils: Positive for: PERRL Extroacular Muscles: Positive for: EOMI Mouth: Positive for: Moist Mucous Membranes Respiratory/Chest: Positive for: Clear to Auscultation Cardiovascular: Positive for: Normal S1, S2, Bradycardic Abdomen: Positive for: Distention. Negative for: Tenderness Neurological: Positive for: GCS=15, CN II-XII Intact Skin: Positive for: Warm, Dry, Normal Color Psychiatric: Positive for: Alert, Oriented x 3 - Medications Active Medications: Active Medications Generic Name Dose Route Start Last Admin Trade Name Freq PRN Reason Stop Dose Admin Acetaminophen 650 mg 07/17/18 21:59 07/17/18 22:33 Tylenol 325mg Tab PO 650 mg Q6 PRN Administration Pain, moderate (4-7) Aspirin 81 mg 07/17/18 10:00 07/18/18 10:40 Aspirin Chewable PO 81 mg DAILY HAILEY Administration Nitroglycerin/Dextrose 50 mg in 250 mls @ 1.5 mls/hr 07/17/18 17:45 04/16/19 20:00 Nitroglycerin 50 Mg/250 Ml D5w IV 30 mcg/min .Q24H HAILEY 9 mls/hr Titration Protocol 5 MCG/MIN Levothyroxine Sodium 25 mcg 07/19/18 06:30 Synthroid PO DAILY@0630 HAILEY Pantoprazole Sodium 40 mg 07/17/18 10:00 07/18/18 10:41 Protonix Ec Tab PO 40 mg DAILY HAILEY Administration Sitagliptin Phosphate 100 mg 07/17/18 10:00 07/18/18 10:40 Januvia PO 100 mg DAILY HAILEY Administration Sodium Polystyrene Sulfonate 30 gm 07/18/18 11:15 Kayexalate PO 07/18/18 11:16 ONCE ONE - Patient Studies Lab Studies: Lab Studies 07/18/18 07/18/18 07/17/18 Range/Units 06:23 06:23 21:40 WBC 6.0 (4.8-10.8) K/uL RBC 2.95 L (4.40-5.90) Mil/uL Hgb 7.8 L (12.0-18.0) g/dL Hct 24.0 L (35.0-51.0) % MCV 81.1 (80.0-94.0) fL MCH 26.3 L (27.0-31.0) pg MCHC 32.4 L (33.0-37.0) g/dL RDW 16.1 H (11.5-14.5) % Plt Count 234 (130-400) K/uL MPV 8.4 (7.2-11.7) fL Neut % (Auto) 68.7 (50.0-75.0) % Lymph % (Auto) 18.4 L (20.0-40.0) % [place] % (Auto) 11.9 H (0.0-10.0) % Eos % (Auto) 0.4 (0.0-4.0) % Baso % (Auto) 0.6 (0.0-2.0) % Neut # (Auto) 4.1 (1.8-7.0) K/uL Lymph # (Auto) 1.1 (1.0-4.3) K/uL [place] # (Auto) 0.7 (0.0-0.8) K/uL Eos # (Auto) 0.0 (0.0-0.7) K/uL Baso # (Auto) 0.0 (0.0-0.2) K/uL Sodium 130 L 131 L (132-148) mmol/L Potassium 5.3 H 5.8 H (3.6-5.2) mmol/L Chloride 102 102 (98-107) mmol/L Carbon Dioxide 21 L 18 L (22-30) mmol/L Anion Gap 12 17 (10-20) BUN 28 H 29 H (9-20) mg/dL Creatinine 1.7 H 1.7 H (0.8-1.5) mg/dL Est GFR ( Amer) 47 47 Est GFR (Non-Af Amer) 38 38 POC Glucose (mg/dL) (65-110) mg/dL Random Glucose 115 H D 168 H D (75-110) mg/dL Calcium 8.7 9.1 (8.6-10.4) mg/dl Phosphorus 5.0 H (2.5-4.5) mg/dL Magnesium 1.8 (1.6-2.3) mg/dL Total Bilirubin 0.3 0.3 (0.2-1.3) mg/dL AST 25 27 (17-59) U/L ALT 15 L D 27 (21-72) U/L Alkaline Phosphatase 45 53 (38-126) U/L Total Protein 6.1 L 6.7 (6.3-8.3) g/dL Albumin 3.6 4.0 (3.5-5.0) g/dL Globulin 2.5 2.7 (2.2-3.9) gm/dL Albumin/Globulin Ratio 1.5 1.5 (1.0-2.1) 07/17/18 07/17/18 Range/Units 15:52 11:05 WBC (4.8-10.8) K/uL RBC (4.40-5.90) Mil/uL Hgb (12.0-18.0) g/dL Hct (35.0-51.0) % MCV (80.0-94.0) fL MCH (27.0-31.0) pg MCHC (33.0-37.0) g/dL RDW (11.5-14.5) % Plt Count (130-400) K/uL MPV (7.2-11.7) fL Neut % (Auto) (50.0-75.0) % Lymph % (Auto) (20.0-40.0) % [place] % (Auto) (0.0-10.0) % Eos % (Auto) (0.0-4.0) % Baso % (Auto) (0.0-2.0) % Neut # (Auto) (1.8-7.0) K/uL Lymph # (Auto) (1.0-4.3) K/uL [place] # (Auto) (0.0-0.8) K/uL Eos # (Auto) (0.0-0.7) K/uL Baso # (Auto) (0.0-0.2) K/uL Sodium (132-148) mmol/L Potassium (3.6-5.2) mmol/L Chloride (98-107) mmol/L Carbon Dioxide (22-30) mmol/L Anion Gap (10-20) BUN (9-20) mg/dL Creatinine (0.8-1.5) mg/dL Est GFR ( Amer) Est GFR (Non-Af Amer) POC Glucose (mg/dL) 143 H 192 H (65-110) mg/dL Random Glucose (75-110) mg/dL Calcium (8.6-10.4) mg/dl Phosphorus (2.5-4.5) mg/dL Magnesium (1.6-2.3) mg/dL Total Bilirubin (0.2-1.3) mg/dL AST (17-59) U/L ALT (21-72) U/L Alkaline Phosphatase (38-126) U/L Total Protein (6.3-8.3) g/dL Albumin (3.5-5.0) g/dL Globulin (2.2-3.9) gm/dL Albumin/Globulin Ratio (1.0-2.1) Laboratory Results - last 24 hr 07/17/18 07/17/18 07/17/18 11:05 15:52 21:40 WBC RBC Hgb Hct MCV MCH MCHC RDW Plt Count MPV Neut % (Auto) Lymph % (Auto) [place] % (Auto) Eos % (Auto) Baso % (Auto) Neut # (Auto) Lymph # (Auto) [place] # (Auto) Eos # (Auto) Baso # (Auto) Sodium 131 L Potassium 5.8 H Chloride 102 Carbon Dioxide 18 L Anion Gap 17 BUN 29 H Creatinine 1.7 H Est GFR ( Amer) 47 Est GFR (Non-Af Amer) 38 POC Glucose (mg/dL) 192 H 143 H Random Glucose 168 H D Calcium 9.1 Phosphorus Magnesium Total Bilirubin 0.3 AST 27 ALT 27 Alkaline Phosphatase 53 Total Protein 6.7 Albumin 4.0 Globulin 2.7 Albumin/Globulin Ratio 1.5 07/18/18 07/18/18 06:23 06:23 WBC 6.0 RBC 2.95 L Hgb 7.8 L Hct 24.0 L MCV 81.1 MCH 26.3 L MCHC 32.4 L RDW 16.1 H Plt Count 234 MPV 8.4 Neut % (Auto) 68.7 Lymph % (Auto) 18.4 L [place] % (Auto) 11.9 H Eos % (Auto) 0.4 Baso % (Auto) 0.6 Neut # (Auto) 4.1 Lymph # (Auto) 1.1 [place] # (Auto) 0.7 Eos # (Auto) 0.0 Baso # (Auto) 0.0 Sodium 130 L Potassium 5.3 H Chloride 102 Carbon Dioxide 21 L Anion Gap 12 BUN 28 H Creatinine 1.7 H Est GFR ( Amer) 47 Est GFR (Non-Af Amer) 38 POC Glucose (mg/dL) Random Glucose 115 H D Calcium 8.7 Phosphorus 5.0 H Magnesium 1.8 Total Bilirubin 0.3 AST 25 ALT 15 L D Alkaline Phosphatase 45 Total Protein 6.1 L Albumin 3.6 Globulin 2.5 Albumin/Globulin Ratio 1.5 Radiology Impressions: Radiology Impressions Abdomen/Pelvis CT 07/16/18 15:31 IMPRESSION: Chronic bladder outlet obstruction with severe bladder distention, trabeculation formation and cellule formation. Associated severe bilateral hydroureteronephrosis. 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 Cardio Second Degree Mobitz Type I Heart Block -Cardiology on consult, Dr. Peterson -EP consult, Dr. Lowery --Recommend repeat studies following correction of thyroid function and electrolyte abnormalities -Cardiac monitoring -Asymptomatic at this time Hypertensive Urgency -Patient asymptomatic -Goal BP <160/100 with reduction of MAP by approx 25-30% daily -Monitor for symptoms, monitor HR Pulm -Saturating well on room air -Maintain SPO2>92% Heme/ID -HgB 9.1 - stable compared to yesterday (12/02) -Monitor daily CBC Endo Hypothyroidism -TSH 26, no prior known hx thyroid dz -Start Levothyroxine 25mcg daily, f/u repeat studies -F/u with repeat EKGs as potential cause of bradycardia/arrhythmia DM -Home Januvia -Accuchecks ACHS -Hypoglycemia protocol Nephro -Adequate urine output -Monitor I and Os Neuro -A and O x3 GI Questionable GI bleed -Dark stools noted per ED note, but patient denies any kaylah blood or dark tarry stools -HgB stable 9.1 -Monitor CBC Urinary Obstruction -Chronic bladder obstruction with distention and hydroureteronephrosis noted on CT abdomen/pelvis -Patient states having chronic prostate issues with negative biopsy in the past -Terrell placed 07/18 -Worsening creatinine - 1.7 - possibly 2/2 obstruction/hydronephrosis. F/u repeat CMP following terrell insertion. -Monitor for symptoms PPx -DVT: SCDs. Chemical anticoagulation c/i 2/2 questionable GI bleed -Protonix 40 mg PO daily Assessment and plan d/w Dr. Bairon Vegas, PGY-1 <Harman Waddell S - Last Filed: 07/18/18 15:37> CCU Subjective - Physician Review Critical Care Time Spent (in minutes): 45 CCU Objective - Vital Signs / Intake & Output Vital Signs (Last 4 hours): Vital Signs Temp Pulse Resp BP Pulse Ox 07/18/18 13:00 61 18 99 07/18/18 12:58 49 L 14 168/59 H 96 07/18/18 12:53 51 L 18 166/62 H 97 07/18/18 12:42 98.7 F 07/18/18 12:40 61 12 174/75 H 99 07/18/18 12:14 58 L 17 182/78 H 95 07/18/18 12:00 48 L 14 98 07/18/18 11:59 58 L 12 183/30 H 98 Intake and Output (Last 8hrs): Intake & Output 07/18/18 07/18/18 07/18/18 06:59 14:59 22:59 Intake Total 72 72 Output Total 1999 Balance 72 -1928 Weight 162 lb 6 oz Intake: Intake, IV Amount 72 72 Left Antecubital 72 72 Output: Urine 1999 Other: # Bowel Movements 0 - Medications Active Medications: Active Medications Generic Name Dose Route Start Last Admin Trade Name Freq PRN Reason Stop Dose Admin Acetaminophen 650 mg 07/17/18 21:59 07/17/18 22:33 Tylenol 325mg Tab PO 650 mg Q6 PRN Administration Pain, moderate (4-7) Aspirin 81 mg 07/17/18 10:00 07/18/18 10:40 Aspirin Chewable PO 81 mg DAILY HAILEY Administration Nitroglycerin/Dextrose 50 mg in 250 mls @ 1.5 mls/hr 07/17/18 17:45 07/17/18 20:00 Nitroglycerin 50 Mg/250 Ml D5w IV 30 mcg/min .Q24H HAILEY 9 mls/hr Titration Protocol 5 MCG/MIN Levothyroxine Sodium 25 mcg 07/19/18 06:30 Synthroid PO DAILY@0630 HAILEY Pantoprazole Sodium 40 mg 07/17/18 10:00 07/18/18 10:41 Protonix Ec Tab PO 40 mg DAILY HAILEY Administration Sitagliptin Phosphate 100 mg 07/17/18 10:00 07/18/18 10:40 Januvia PO 100 mg DAILY HAILEY Administration - Patient Studies Lab Studies: Lab Studies 07/18/18 07/18/18 07/18/18 Range/Units 12:56 12:53 11:02 WBC (4.8-10.8) K/uL RBC (4.40-5.90) Mil/uL Hgb (12.0-18.0) g/dL Hct (35.0-51.0) % MCV (80.0-94.0) fL MCH (27.0-31.0) pg MCHC (33.0-37.0) g/dL RDW (11.5-14.5) % Plt Count (130-400) K/uL MPV (7.2-11.7) fL Neut % (Auto) (50.0-75.0) % Lymph % (Auto) (20.0-40.0) % [place] % (Auto) (0.0-10.0) % Eos % (Auto) (0.0-4.0) % Baso % (Auto) (0.0-2.0) % Neut # (Auto) (1.8-7.0) K/uL Lymph # (Auto) (1.0-4.3) K/uL [place] # (Auto) (0.0-0.8) K/uL Eos # (Auto) (0.0-0.7) K/uL Baso # (Auto) (0.0-0.2) K/uL Sodium (132-148) mmol/L Potassium (3.6-5.2) mmol/L Chloride (98-107) mmol/L Carbon Dioxide (22-30) mmol/L Anion Gap (10-20) BUN (9-20) mg/dL Creatinine (0.8-1.5) mg/dL Est GFR ( Amer) Est GFR (Non-Af Amer) POC Glucose (mg/dL) (65-110) mg/dL Random Glucose (75-110) mg/dL Serum Osmolality 291 (272-300) mosm/kg Calcium (8.6-10.4) mg/dl Phosphorus (2.5-4.5) mg/dL Magnesium (1.6-2.3) mg/dL Total Bilirubin (0.2-1.3) mg/dL AST (17-59) U/L ALT (21-72) U/L Alkaline Phosphatase (38-126) U/L Total Protein (6.3-8.3) g/dL Albumin (3.5-5.0) g/dL Globulin (2.2-3.9) gm/dL Albumin/Globulin Ratio (1.0-2.1) Carcinoembryonic Ag (0-3.0) ng/mL CA 19-9 Antigen (0-37) U/mL Free T4 0.86 (0.78-2.19) ng/dL Thyroxine (T4) (5.5-11.0) ug/dL Free T3 pg/mL (2.77-5.27) pg/mL Urine Color Yellow (YELLOW) Urine Clarity Clear (Clear) Urine pH 5.0 (5.0-8.0) Ur Specific [place] 1.015 (1.003-1.030) Urine Protein 2+ H (NEGATIVE) mg/dL Urine Glucose (UA) Normal (Normal) mg/dL Urine Ketones Negative (NEGATIVE) mg/dL Urine Blood 2+ H (NEGATIVE) Urine Nitrate Negative (NEGATIVE) Urine Bilirubin Negative (NEGATIVE) Urine Urobilinogen Normal (0.2-1.0) mg/dL Ur Leukocyte Esterase Neg (Negative) Jose/uL Urine WBC (Auto) 3 (0-5) /hpf Urine RBC (Auto) 138 H (0-3) /hpf Ur Squamous Epith Cells < 1 (0-5) /hpf Urine Osmolality 280 L (300-1000) mosm/kg Ur Random Creatinine 90.0 mg/dL U Random Total Protein 119.0 H (0.0-12.0) mg/dL Ur Random Sodium 21 mmol/L Ur Random Potassium 38.8 mmol/L Ur Random Urea Nitrogn 379 mg/dL 07/18/18 07/18/18 07/18/18 Range/Units 11:02 06:23 06:23 WBC 6.0 (4.8-10.8) K/uL RBC 2.95 L (4.40-5.90) Mil/uL Hgb 7.8 L (12.0-18.0) g/dL Hct 24.0 L (35.0-51.0) % MCV 81.1 (80.0-94.0) fL MCH 26.3 L (27.0-31.0) pg MCHC 32.4 L (33.0-37.0) g/dL RDW 16.1 H (11.5-14.5) % Plt Count 234 (130-400) K/uL MPV 8.4 (7.2-11.7) fL Neut % (Auto) 68.7 (50.0-75.0) % Lymph % (Auto) 18.4 L (20.0-40.0) % [place] % (Auto) 11.9 H (0.0-10.0) % Eos % (Auto) 0.4 (0.0-4.0) % Baso % (Auto) 0.6 (0.0-2.0) % Neut # (Auto) 4.1 (1.8-7.0) K/uL Lymph # (Auto) 1.1 (1.0-4.3) K/uL [place] # (Auto) 0.7 (0.0-0.8) K/uL Eos # (Auto) 0.0 (0.0-0.7) K/uL Baso # (Auto) 0.0 (0.0-0.2) K/uL Sodium 130 L (132-148) mmol/L Potassium 5.3 H (3.6-5.2) mmol/L Chloride 102 (98-107) mmol/L Carbon Dioxide 21 L (22-30) mmol/L Anion Gap 12 (10-20) BUN 28 H (9-20) mg/dL Creatinine 1.7 H (0.8-1.5) mg/dL Est GFR ( Amer) 47 Est GFR (Non-Af Amer) 38 POC Glucose (mg/dL) (65-110) mg/dL Random Glucose 115 H D (75-110) mg/dL Serum Osmolality (272-300) mosm/kg Calcium 8.7 (8.6-10.4) mg/dl Phosphorus 5.0 H (2.5-4.5) mg/dL Magnesium 1.8 (1.6-2.3) mg/dL Total Bilirubin 0.3 (0.2-1.3) mg/dL AST 25 (17-59) U/L ALT 15 L D (21-72) U/L Alkaline Phosphatase 45 (38-126) U/L Total Protein 6.1 L (6.3-8.3) g/dL Albumin 3.6 (3.5-5.0) g/dL Globulin 2.5 (2.2-3.9) gm/dL Albumin/Globulin Ratio 1.5 (1.0-2.1) Carcinoembryonic Ag 1.9 (0-3.0) ng/mL CA 19-9 Antigen 64.7 H (0-37) U/mL Free T4 (0.78-2.19) ng/dL Thyroxine (T4) 9.48 (5.5-11.0) ug/dL Free T3 pg/mL 2.67 L (2.77-5.27) pg/mL Urine Color (YELLOW) Urine Clarity (Clear) Urine pH (5.0-8.0) Ur Specific [place] (1.003-1.030) Urine Protein (NEGATIVE) mg/dL Urine Glucose (UA) (Normal) mg/dL Urine Ketones (NEGATIVE) mg/dL Urine Blood (NEGATIVE) Urine Nitrate (NEGATIVE) Urine Bilirubin (NEGATIVE) Urine Urobilinogen (0.2-1.0) mg/dL Ur Leukocyte Esterase (Negative) Jose/uL Urine WBC (Auto) (0-5) /hpf Urine RBC (Auto) (0-3) /hpf Ur Squamous Epith Cells (0-5) /hpf Urine Osmolality (300-1000) mosm/kg Ur Random Creatinine mg/dL U Random Total Protein (0.0-12.0) mg/dL Ur Random Sodium mmol/L Ur Random Potassium mmol/L Ur Random Urea Nitrogn mg/dL 07/17/18 07/17/18 07/17/18 Range/Units 21:40 15:52 11:05 WBC (4.8-10.8) K/uL RBC (4.40-5.90) Mil/uL Hgb (12.0-18.0) g/dL Hct (35.0-51.0) % MCV (80.0-94.0) fL MCH (27.0-31.0) pg MCHC (33.0-37.0) g/dL RDW (11.5-14.5) % Plt Count (130-400) K/uL MPV (7.2-11.7) fL Neut % (Auto) (50.0-75.0) % Lymph % (Auto) (20.0-40.0) % [place] % (Auto) (0.0-10.0) % Eos % (Auto) (0.0-4.0) % Baso % (Auto) (0.0-2.0) % Neut # (Auto) (1.8-7.0) K/uL Lymph # (Auto) (1.0-4.3) K/uL [place] # (Auto) (0.0-0.8) K/uL Eos # (Auto) (0.0-0.7) K/uL Baso # (Auto) (0.0-0.2) K/uL Sodium 131 L (132-148) mmol/L Potassium 5.8 H (3.6-5.2) mmol/L Chloride 102 (98-107) mmol/L Carbon Dioxide 18 L (22-30) mmol/L Anion Gap 17 (10-20) BUN 29 H (9-20) mg/dL Creatinine 1.7 H (0.8-1.5) mg/dL Est GFR ( Amer) 47 Est GFR (Non-Af Amer) 38 POC Glucose (mg/dL) 143 H 192 H (65-110) mg/dL Random Glucose 168 H D (75-110) mg/dL Serum Osmolality (272-300) mosm/kg Calcium 9.1 (8.6-10.4) mg/dl Phosphorus (2.5-4.5) mg/dL Magnesium (1.6-2.3) mg/dL Total Bilirubin 0.3 (0.2-1.3) mg/dL AST 27 (17-59) U/L ALT 27 (21-72) U/L Alkaline Phosphatase 53 (38-126) U/L Total Protein 6.7 (6.3-8.3) g/dL Albumin 4.0 (3.5-5.0) g/dL Globulin 2.7 (2.2-3.9) gm/dL Albumin/Globulin Ratio 1.5 (1.0-2.1) Carcinoembryonic Ag (0-3.0) ng/mL CA 19-9 Antigen (0-37) U/mL Free T4 (0.78-2.19) ng/dL Thyroxine (T4) (5.5-11.0) ug/dL Free T3 pg/mL (2.77-5.27) pg/mL Urine Color (YELLOW) Urine Clarity (Clear) Urine pH (5.0-8.0) Ur Specific [place] (1.003-1.030) Urine Protein (NEGATIVE) mg/dL Urine Glucose (UA) (Normal) mg/dL Urine Ketones (NEGATIVE) mg/dL Urine Blood (NEGATIVE) Urine Nitrate (NEGATIVE) Urine Bilirubin (NEGATIVE) Urine Urobilinogen (0.2-1.0) mg/dL Ur Leukocyte Esterase (Negative) Jose/uL Urine WBC (Auto) (0-5) /hpf Urine RBC (Auto) (0-3) /hpf Ur Squamous Epith Cells (0-5) /hpf Urine Osmolality (300-1000) mosm/kg Ur Random Creatinine mg/dL U Random Total Protein (0.0-12.0) mg/dL Ur Random Sodium mmol/L Ur Random Potassium mmol/L Ur Random Urea Nitrogn mg/dL Laboratory Results - last 24 hr 07/17/18 07/17/18 07/17/18 11:05 15:52 21:40 WBC RBC Hgb Hct MCV MCH MCHC RDW Plt Count MPV Neut % (Auto) Lymph % (Auto) [place] % (Auto) Eos % (Auto) Baso % (Auto) Neut # (Auto) Lymph # (Auto) [place] # (Auto) Eos # (Auto) Baso # (Auto) Sodium 131 L Potassium 5.8 H Chloride 102 Carbon Dioxide 18 L Anion Gap 17 BUN 29 H Creatinine 1.7 H Est GFR ( Amer) 47 Est GFR (Non-Af Amer) 38 POC Glucose (mg/dL) 192 H 143 H Random Glucose 168 H D Serum Osmolality Calcium 9.1 Phosphorus Magnesium Total Bilirubin 0.3 AST 27 ALT 27 Alkaline Phosphatase 53 Total Protein 6.7 Albumin 4.0 Globulin 2.7 Albumin/Globulin Ratio 1.5 Carcinoembryonic Ag CA 19-9 Antigen Free T4 Thyroxine (T4) Free T3 pg/mL Urine Color Urine Clarity Urine pH Ur Specific [place] Urine Protein Urine Glucose (UA) Urine Ketones Urine Blood Urine Nitrate Urine Bilirubin Urine Urobilinogen Ur Leukocyte Esterase Urine WBC (Auto) Urine RBC (Auto) Ur Squamous Epith Cells Urine Osmolality Ur Random Creatinine U Random Total Protein Ur Random Sodium Ur Random Potassium Ur Random Urea Nitrogn 07/18/18 07/18/18 07/18/18 06:23 06:23 11:02 WBC 6.0 RBC 2.95 L Hgb 7.8 L Hct 24.0 L MCV 81.1 MCH 26.3 L MCHC 32.4 L RDW 16.1 H Plt Count 234 MPV 8.4 Neut % (Auto) 68.7 Lymph % (Auto) 18.4 L [place] % (Auto) 11.9 H Eos % (Auto) 0.4 Baso % (Auto) 0.6 Neut # (Auto) 4.1 Lymph # (Auto) 1.1 [place] # (Auto) 0.7 Eos # (Auto) 0.0 Baso # (Auto) 0.0 Sodium 130 L Potassium 5.3 H Chloride 102 Carbon Dioxide 21 L Anion Gap 12 BUN 28 H Creatinine 1.7 H Est GFR ( Amer) 47 Est GFR (Non-Af Amer) 38 POC Glucose (mg/dL) Random Glucose 115 H D Serum Osmolality Calcium 8.7 Phosphorus 5.0 H Magnesium 1.8 Total Bilirubin 0.3 AST 25 ALT 15 L D Alkaline Phosphatase 45 Total Protein 6.1 L Albumin 3.6 Globulin 2.5 Albumin/Globulin Ratio 1.5 Carcinoembryonic Ag 1.9 CA 19-9 Antigen 64.7 H Free T4 Thyroxine (T4) 9.48 Free T3 pg/mL 2.67 L Urine Color Urine Clarity Urine pH Ur Specific [place] Urine Protein Urine Glucose (UA) Urine Ketones Urine Blood Urine Nitrate Urine Bilirubin Urine Urobilinogen Ur Leukocyte Esterase Urine WBC (Auto) Urine RBC (Auto) Ur Squamous Epith Cells Urine Osmolality Ur Random Creatinine U Random Total Protein Ur Random Sodium Ur Random Potassium Ur Random Urea Nitrogn 07/18/18 07/18/18 07/18/18 11:02 12:53 12:56 WBC RBC Hgb Hct MCV MCH MCHC RDW Plt Count MPV Neut % (Auto) Lymph % (Auto) [place] % (Auto) Eos % (Auto) Baso % (Auto) Neut # (Auto) Lymph # (Auto) [place] # (Auto) Eos # (Auto) Baso # (Auto) Sodium Potassium Chloride Carbon Dioxide Anion Gap BUN Creatinine Est GFR ( Amer) Est GFR (Non-Af Amer) POC Glucose (mg/dL) Random Glucose Serum Osmolality 291 Calcium Phosphorus Magnesium Total Bilirubin AST ALT Alkaline Phosphatase Total Protein Albumin Globulin Albumin/Globulin Ratio Carcinoembryonic Ag CA 19-9 Antigen Free T4 0.86 Thyroxine (T4) Free T3 pg/mL Urine Color Yellow Urine Clarity Clear Urine pH 5.0 Ur Specific [place] 1.015 Urine Protein 2+ H Urine Glucose (UA) Normal Urine Ketones Negative Urine Blood 2+ H Urine Nitrate Negative Urine Bilirubin Negative Urine Urobilinogen Normal Ur Leukocyte Esterase Neg Urine WBC (Auto) 3 Urine RBC (Auto) 138 H Ur Squamous Epith Cells < 1 Urine Osmolality 280 L Ur Random Creatinine 90.0 U Random Total Protein 119.0 H Ur Random Sodium 21 Ur Random Potassium 38.8 Ur Random Urea Nitrogn 379 Critical Care Progress Note - Nutrition Nutrition: Nutrition Category Date Time Status 2gm [Heart Healthy Diet] [DIET] Diets 07/17/18 Breakfast Active NPO Diet [DIET] Diets 07/19/18 Breakfast Active Attending/Attestation - Attestation I have personally seen and examined this patient.: Yes I have fully participated in the care of the patient.: Yes I have reviewed all pertinent clinical information: Yes Notes (Text): 07/18/18 15:34 Patient seen and examined in the intensive care unit. Case discussed with housestaff in the morning rounds. Patient seen by EPS for Mobitz block Started on levothyroxine Kayexalate for hyperkalemia Continue ICU monitoring Seen by nephrology for elevated creatinine
[2018-07-18 11:41] LABS: FREE T4 0.86 ng/dL (0.78-2.19)
[2018-07-18 13:19] LABS: SQUAMOUS EPITHIAL < 1 /hpf (0-5); URINE BILIRUBIN NEGATIVE (NEGATIVE); URINE BLOOD 2+ (NEGATIVE); URINE CLARITY Clear (Clear); URINE COLOR Yellow (YELLOW); URINE GLUCOSE (UA) NORMAL (Normal); URINE LEUKOCYTE ESTERASE NEG Leu/uL (Negative); URINE PROTEIN 2+ mg/dL (NEGATIVE); URINE UROBILINOGEN NORMAL mg/dL (0.2-1.0)
--- NOTE | 2018-07-18 13:46 | CP.PCM.CON ---
<Cody Segura - Last Filed: 07/18/18 15:53> History of Present Illness - History of Present Illness History of Present Illness: Nephro Consult Note for Dr. Tucker Service Cody Segura DO, PGY-3 Consulted for: Persistent Hyperkalemia, LILLIAM This is an 87 yo M with PMH of HTN, DM, anemia, and hyperlipidemia who presented to the ED on 07/16/18 for evaluation of dyspnea and dizziness x1 week. Patient was found to be hypertensive to the 200's (systolic) and bradycardic to the 40s, and was later found to have a 2:1 AV block. Patient was admitted to the ICU for symptomatic hypertensive urgency/bradycardia in the setting of advanced heart block. He is awaiting possible pacemaker placement and is currently on a Nitroglycerin drip for BP control. Nephrology consulted for LILLIAM (Cr 1.5 on arrival, now 1.7, was 1.1 during Jan 2018 ED visit) and persistent hyperkalemia. Patient also had a reported episode of dark stool in the ED, stool occult pending. CT abdomen/pelvis obtained due to dark stool was instead notable for chronic bladder outlet obstruction w/ severe bladder distension and bilateral hydrouretonephrosis. Patient currently reports to be asymptomatic, but admitted to intermittent dizziness prior to admission, particularly when moving from sitting to standing position. Also reports he recently ran out of a medication for his prostate (can't remember the name) that he had been previously started on to help him urinate; off for ~3 weeks by his estimation. He reports a negative prostate biopsy in the past. Over the past week he also notes urine leakage at night and an overall decrease in urine output, and has been wearing adult diapers for the leakage. Denies dysuria, hematuria, nausea, vomiting, abdominal pain, fevers, chills, or any other new symptoms. Other then running out of the prostate medication, reports compliance with all home medications. Reports recent increase in his valsartan/HCTZ medication, approx 2 weeks prior, by his PMD. Denies sick contacts. 12-system ROS reviewed and negative, except as above. PMH: as above PSH: prostate biospy, otherwise denies Family Hx: pt unsure of family hx Soc Hx: denies tobacco, alcohol, or illicits/IVDA PMD: has one, but cannot remember the name Cardiology: follows an outpatient Cardio in [place] Review of Systems - Review of Systems All systems: reviewed and no additional remarkable complaints except (as per HPI) Past Patient History - Past Medical History & Family History Past Medical History?: Yes - Past Social History Smoking Status: Never Smoked - CARDIAC Hx Hypertension: Yes - RENAL Hx Chronic Kidney Disease: No - ENDOCRINE/METABOLIC Hx Endocrine Disorders: Yes Hx Diabetes Mellitus Type 2: Yes - HEMATOLOGICAL/ONCOLOGICAL Hx Blood Disorders: Yes Hx Anemia: Yes - INTEGUMENTARY Hx Dermatological Problems: No - MUSCULOSKELETAL/RHEUMATOLOGICAL Hx Musculoskeletal Disorders: No Hx Falls: No - GASTROINTESTINAL Hx Gastrointestinal Disorders: No - GENITOURINARY/GYNECOLOGICAL Hx Genitourinary Disorders: No - PSYCHIATRIC Hx Substance Use: No - SURGICAL HISTORY Hx Surgeries: No - ANESTHESIA Hx Anesthesia: No Meds Allergies/Adverse Reactions: Allergies Allergy/AdvReac Type Severity Reaction Status Date / Time No Known Allergies Allergy Unverified 01/08/18 19:51 - Medications Medications: Current Medications Acetaminophen (Tylenol 325mg Tab) 650 mg PO Q6 PRN PRN Reason: Pain, moderate (4-7) Last Admin: 07/17/18 22:33 Dose: 650 mg Aspirin (Aspirin Chewable) 81 mg PO DAILY [facility] Last Admin: 07/18/18 10:40 Dose: 81 mg Nitroglycerin/Dextrose (Nitroglycerin 50 Mg/250 Ml D5w) 50 mg in 250 mls @ 1.5 mls/hr IV .Q24H [facility]; Protocol Last Titration: 07/17/18 20:00 Dose: 30 mcg/min, 9 mls/hr Levothyroxine Sodium (Synthroid) 25 mcg PO DAILY@0630 [facility] Pantoprazole Sodium (Protonix Ec Tab) 40 mg PO DAILY [facility] Last Admin: 07/18/18 10:41 Dose: 40 mg Sitagliptin Phosphate (Januvia) 100 mg PO DAILY [facility] Last Admin: 07/18/18 10:40 Dose: 100 mg Physical Exam - Constitutional Appears: Non-toxic, No Acute Distress - Head Exam Head Exam: ATRAUMATIC, NORMAL INSPECTION, NORMOCEPHALIC - Eye Exam Eye Exam: Normal appearance. absent: Conjunctival injection, Scleral icterus Pupil Exam: absent: Irregular, Unequal - ENT Exam ENT Exam: Mucous Membranes Moist - Neck Exam Neck exam: Negative for: Lymphadenopathy, Tenderness, Thyromegaly - Respiratory Exam Respiratory Exam: Clear to Auscultation Bilateral, NORMAL BREATHING PATTERN. absent: Accessory Muscle Use, Chest Wall Tenderness, Decreased Breath Sounds, Rales, Rhonchi, Wheezes - Cardiovascular Exam Cardiovascular Exam: Bradycardia, Irregular Rhythm, +S1, +S2. absent: REGULAR RHYTHM, JVD, RRR - GI/Abdominal Exam GI & Abdominal Exam: Normal Bowel Sounds. absent: Diminished Bowel Sounds, Hyperactive Bowel Sounds, Hypoactive Bowel Sounds, Tenderness Additional comments: lower half of abdomen is firm, upper half is soft, no tenderness to palpation anywhere, decreased tympani in lower half of abdomen - Extremities Exam Extremities exam: Positive for: normal inspection, pedal pulses present. Negative for: calf tenderness, pedal edema, tenderness - Back Exam Back exam: absent: CVA tenderness (L), CVA tenderness (R) - Neurological Exam Additional comments: awake and alert, following all commands appropriately, moving all extremities spontaneously - Psychiatric Exam Psychiatric exam: Normal Affect, Normal Mood - Skin Skin Exam: Dry, Intact, Normal Color, Warm Results - Vital Signs Recent Vital Signs: Last Vital Signs Temp 98.7 F 07/18/18 12:42 Pulse 61 07/18/18 13:00 Resp 18 07/18/18 13:00 BP 168/59 H 07/18/18 12:58 Pulse Ox 99 07/18/18 13:00 - Labs Result Diagrams: 07/18/18 06:23 07/18/18 06:23 Labs: Laboratory Results - last 24 hr 07/17/18 07/17/18 07/17/18 11:05 15:52 21:40 WBC RBC Hgb Hct MCV MCH MCHC RDW Plt Count MPV Neut % (Auto) Lymph % (Auto) [place] % (Auto) Eos % (Auto) Baso % (Auto) Neut # (Auto) Lymph # (Auto) [place] # (Auto) Eos # (Auto) Baso # (Auto) Sodium 131 L Potassium 5.8 H Chloride 102 Carbon Dioxide 18 L Anion Gap 17 BUN 29 H Creatinine 1.7 H Est GFR ( Amer) 47 Est GFR (Non-Af Amer) 38 POC Glucose (mg/dL) 192 H 143 H Random Glucose 168 H D Serum Osmolality Calcium 9.1 Phosphorus Magnesium Total Bilirubin 0.3 AST 27 ALT 27 Alkaline Phosphatase 53 Total Protein 6.7 Albumin 4.0 Globulin 2.7 Albumin/Globulin Ratio 1.5 Carcinoembryonic Ag CA 19-9 Antigen Free T4 Thyroxine (T4) Free T3 pg/mL Urine Color Urine Clarity Urine pH Ur Specific [place] Urine Protein Urine Glucose (UA) Urine Ketones Urine Blood Urine Nitrate Urine Bilirubin Urine Urobilinogen Ur Leukocyte Esterase Urine WBC (Auto) Urine RBC (Auto) Ur Squamous Epith Cells Urine Osmolality Ur Random Creatinine U Random Total Protein Ur Random Sodium Ur Random Potassium Ur Random Urea Nitrogn 07/18/18 07/18/18 07/18/18 06:23 06:23 11:02 WBC 6.0 RBC 2.95 L Hgb 7.8 L Hct 24.0 L MCV 81.1 MCH 26.3 L MCHC 32.4 L RDW 16.1 H Plt Count 234 MPV 8.4 Neut % (Auto) 68.7 Lymph % (Auto) 18.4 L [place] % (Auto) 11.9 H Eos % (Auto) 0.4 Baso % (Auto) 0.6 Neut # (Auto) 4.1 Lymph # (Auto) 1.1 [place] # (Auto) 0.7 Eos # (Auto) 0.0 Baso # (Auto) 0.0 Sodium 130 L Potassium 5.3 H Chloride 102 Carbon Dioxide 21 L Anion Gap 12 BUN 28 H Creatinine 1.7 H Est GFR ( Amer) 47 Est GFR (Non-Af Amer) 38 POC Glucose (mg/dL) Random Glucose 115 H D Serum Osmolality Calcium 8.7 Phosphorus 5.0 H Magnesium 1.8 Total Bilirubin 0.3 AST 25 ALT 15 L D Alkaline Phosphatase 45 Total Protein 6.1 L Albumin 3.6 Globulin 2.5 Albumin/Globulin Ratio 1.5 Carcinoembryonic Ag 1.9 CA 19-9 Antigen 64.7 H Free T4 Thyroxine (T4) 9.48 Free T3 pg/mL 2.67 L Urine Color Urine Clarity Urine pH Ur Specific [place] Urine Protein Urine Glucose (UA) Urine Ketones Urine Blood Urine Nitrate Urine Bilirubin Urine Urobilinogen Ur Leukocyte Esterase Urine WBC (Auto) Urine RBC (Auto) Ur Squamous Epith Cells Urine Osmolality Ur Random Creatinine U Random Total Protein Ur Random Sodium Ur Random Potassium Ur Random Urea Nitrogn 07/18/18 07/18/18 07/18/18 11:02 12:53 12:56 WBC RBC Hgb Hct MCV MCH MCHC RDW Plt Count MPV Neut % (Auto) Lymph % (Auto) [place] % (Auto) Eos % (Auto) Baso % (Auto) Neut # (Auto) Lymph # (Auto) [place] # (Auto) Eos # (Auto) Baso # (Auto) Sodium Potassium Chloride Carbon Dioxide Anion Gap BUN Creatinine Est GFR ( Amer) Est GFR (Non-Af Amer) POC Glucose (mg/dL) Random Glucose Serum Osmolality 291 Calcium Phosphorus Magnesium Total Bilirubin AST ALT Alkaline Phosphatase Total Protein Albumin Globulin Albumin/Globulin Ratio Carcinoembryonic Ag CA 19-9 Antigen Free T4 0.86 Thyroxine (T4) Free T3 pg/mL Urine Color Yellow Urine Clarity Clear Urine pH 5.0 Ur Specific [place] 1.015 Urine Protein 2+ H Urine Glucose (UA) Normal Urine Ketones Negative Urine Blood 2+ H Urine Nitrate Negative Urine Bilirubin Negative Urine Urobilinogen Normal Ur Leukocyte Esterase Neg Urine WBC (Auto) 3 Urine RBC (Auto) 138 H Ur Squamous Epith Cells < 1 Urine Osmolality 280 L Ur Random Creatinine 90.0 U Random Total Protein 119.0 H Ur Random Sodium 21 Ur Random Potassium 38.8 Ur Random Urea Nitrogn 379 Assessment & Plan - Assessment and Plan (Free Text) Assessment: This is an 87 yo M with PMH of HTN, DM, anemia, and hyperlipidemia who presented to the ED on 07/16/18 for evaluation of dyspnea and dizziness x1 week. Patient was admitted to the ICU for symptomatic hypertensive urgency/bradycardia in the setting of advanced heart block. Nephrology consulted for LILLIAM (Cr 1.5 on arrival, now 1.7, was 1.1 during Jan 2018 ED visit) and persistent hyperkalemia. 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 2) HTN urgency 3) LILLIAM ddx: likely 2/2 obstructive nephropathy vs HTN urgency 4) BPH, off medications 5) DM 6) Hypothyroidism on synthroid 7) Persistent Hyperkalemia -LILLIAM and hyperkalemia likely 2/2 obstructive nephropathy Off of meds for BPH x3 weeks, started developing decreased urination and likely overflow incontinence overnight Persistent hyperkalemia likely 2/2 obstructive uropathy --> urinary retention, LILLIAM Hypothyroidism likely contributory, TSH very elevated, but T4/Free T4 wnl, f/u T3 studies Terrell placed, immediately put out approx 1 L, leave terrell, strict I's and O's, repeat labs again in afternoon and follow up Agree with Sungyexelate for HyperK (maxed at 6.1, currently 5.6), should improve now that patient voiding in trerell -HTN urgency with BP 220's+ x1 week as outpatient, seen to have similar BP e levations during ED visit in Jan 2018 Continue Nitro drip for BP control -Advanced heart block, EP consulted, appreciate their recs; reported as HR down 20's once Pending possible pacer Hold all antiarrhythmics given bradycardia and advanced block Patient seen and reviewed with attending, Dr. Tucker <Andrew Tukcer - Last Filed: 07/19/18 08:50> Meds - Medications Medications: Current Medications Acetaminophen (Tylenol 325mg Tab) 650 mg PO Q6 PRN PRN Reason: Pain, moderate (4-7) Last Admin: 07/17/18 22:33 Dose: 650 mg Aspirin (Aspirin Chewable) 81 mg PO DAILY [facility] Last Admin: 07/18/18 10:40 Dose: 81 mg Finasteride (Proscar) 5 mg PO DAILY [facility] Nitroglycerin/Dextrose (Nitroglycerin 50 Mg/250 Ml D5w) 50 mg in 250 mls @ 1.5 mls/hr IV .Q24H [facility]; Protocol Last Titration: 07/18/18 21:00 Dose: 30 mcg/min, 9 mls/hr Sodium Chloride (Sodium Chloride 0.45%) 1,000 mls @ 80 mls/hr IV .[id number] [facility] Levothyroxine Sodium (Synthroid) 25 mcg PO DAILY@0630 [facility] Last Admin: 07/19/18 05:44 Dose: 25 mcg Pantoprazole Sodium (Protonix Ec Tab) 40 mg PO DAILY [facility] Last Admin: 07/18/18 10:41 Dose: 40 mg Sitagliptin Phosphate (Januvia) 100 mg PO DAILY [facility] Last Admin: 07/18/18 10:40 Dose: 100 mg Tamsulosin HCl (Flomax) 0.4 mg PO DAILY [facility] Results - Vital Signs Recent Vital Signs: Last Vital Signs Temp 98.4 F 07/18/18 17:00 Pulse 60 07/19/18 06:00 Resp 12 07/19/18 06:00 BP 169/74 H 07/19/18 05:58 Pulse Ox 95 07/19/18 06:00 - Labs Result Diagrams: 07/19/18 06:06 07/19/18 06:06 Labs: Laboratory Results - last 24 hr 07/18/18 07/18/18 07/18/18 11:02 11:02 12:53 WBC RBC Hgb Hct MCV MCH MCHC RDW Plt Count MPV Neut % (Auto) Lymph % (Auto) [place] % (Auto) Eos % (Auto) Baso % (Auto) Neut # (Auto) Lymph # (Auto) [place] # (Auto) Eos # (Auto) Baso # (Auto) Sodium Potassium Chloride Carbon Dioxide Anion Gap BUN Creatinine Est GFR ( Amer) Est GFR (Non-Af Amer) Random Glucose Serum Osmolality 291 Calcium Phosphorus Magnesium Total Bilirubin AST ALT Alkaline Phosphatase Total Protein Albumin Globulin Albumin/Globulin Ratio Carcinoembryonic Ag 1.9 CA 19-9 Antigen 64.7 H Free T4 0.86 Thyroxine (T4) 9.48 Free T3 pg/mL 2.67 L Urine Color Yellow Urine Clarity Clear Urine pH 5.0 Ur Specific [place] 1.015 Urine Protein 2+ H Urine Glucose (UA) Normal Urine Ketones Negative Urine Blood 2+ H Urine Nitrate Negative Urine Bilirubin Negative Urine Urobilinogen Normal Ur Leukocyte Esterase Neg Urine WBC (Auto) 3 Urine RBC (Auto) 138 H Ur Squamous Epith Cells < 1 Urine Osmolality Ur Random Creatinine U Random Total Protein Ur Random Sodium Ur Random Potassium Ur Random Urea Nitrogn 07/18/18 07/18/18 07/18/18 12:56 14:30 19:14 WBC 7.7 RBC 3.18 L Hgb 8.4 L Hct 25.9 L MCV 81.4 MCH 26.5 L MCHC 32.6 L RDW 16.0 H Plt Count 264 MPV 8.7 Neut % (Auto) 70.6 Lymph % (Auto) 16.6 L [place] % (Auto) 12.0 H Eos % (Auto) 0.3 Baso % (Auto) 0.5 Neut # (Auto) 5.4 Lymph # (Auto) 1.3 [place] # (Auto) 0.9 H Eos # (Auto) 0.0 Baso # (Auto) 0.0 Sodium Potassium Chloride Carbon Dioxide Anion Gap BUN Creatinine Est GFR ( Amer) Est GFR (Non-Af Amer) Random Glucose Serum Osmolality Calcium Phosphorus Magnesium Total Bilirubin AST ALT Alkaline Phosphatase Total Protein Albumin Globulin Albumin/Globulin Ratio Carcinoembryonic Ag CA 19-9 Antigen Free T4 Thyroxine (T4) Free T3 pg/mL Urine Color Urine Clarity Urine pH Ur Specific [place] Urine Protein Urine Glucose (UA) Urine Ketones Urine Blood Urine Nitrate Urine Bilirubin Urine Urobilinogen Ur Leukocyte Esterase Urine WBC (Auto) Urine RBC (Auto) Ur Squamous Epith Cells Urine Osmolality 280 L Ur Random Creatinine 90.0 U Random Total Protein 119.0 H 1198 H Ur Random Sodium 21 Ur Random Potassium 38.8 Ur Random Urea Nitrogn 379 07/18/18 07/19/18 07/19/18 19:14 06:06 06:06 WBC 7.6 RBC 2.98 L Hgb 8.2 L Hct 24.3 L MCV 81.4 MCH 27.6 MCHC 33.9 RDW 16.3 H Plt Count 245 MPV 8.2 Neut % (Auto) 64.8 Lymph % (Auto) 21.2 [place] % (Auto) 13.1 H Eos % (Auto) 0.4 Baso % (Auto) 0.5 Neut # (Auto) 4.9 Lymph # (Auto) 1.6 [place] # (Auto) 1.0 H Eos # (Auto) 0.0 Baso # (Auto) 0.0 Sodium 133 136 Potassium 5.1 4.8 Chloride 102 107 Carbon Dioxide 23 22 Anion Gap 13 13 BUN 29 H 23 H Creatinine 1.6 H 1.2 Est GFR ( Amer) 50 > 60 Est GFR (Non-Af Amer) 41 58 Random Glucose 166 H D 107 D Serum Osmolality Calcium 9.1 9.1 Phosphorus 4.7 H 4.0 Magnesium 1.8 1.8 Total Bilirubin 0.2 0.4 AST 24 26 ALT 27 18 L D Alkaline Phosphatase 50 42 Total Protein 6.6 6.3 Albumin 3.8 3.5 Globulin 2.8 2.8 Albumin/Globulin Ratio 1.4 1.2 Carcinoembryonic Ag CA 19-9 Antigen Free T4 Thyroxine (T4) Free T3 pg/mL Urine Color Urine Clarity Urine pH Ur Specific [place] Urine Protein Urine Glucose (UA) Urine Ketones Urine Blood Urine Nitrate Urine Bilirubin Urine Urobilinogen Ur Leukocyte Esterase Urine WBC (Auto) Urine RBC (Auto) Ur Squamous Epith Cells Urine Osmolality Ur Random Creatinine U Random Total Protein Ur Random Sodium Ur Random Potassium Ur Random Urea Nitrogn Attending/Attestation - Attestation I have personally seen and examined this patient.: Yes I have fully participated in the care of the patient.: Yes I have reviewed all pertinent clinical information: Yes Notes (Text): Patient seen and examined; I agree with the resident's note as above with the following additions/edits: 87 yo M w/ pmh of htn, dm, prostate enlargement, admitted to ICU with symptomatic bradycardia and hypertensive urgency in the setting of advanced heart block, nephrology being consulted for LILLIAM and hyperkalemia; LILLIAM secondary to obstructive uropathy; patient found to have profound urinary bladder distention with b/l hydronephrosis; terrell catheter inserted with over 2L drained immediately; BP still uncontrolled, patient currently on nitro drip; home doses of coreg and clonidine being held due to bradycardia; ARB being held due to LILLIAM; -Maintain terrell catheter; hyperkalemia should also resolve with relief of obstruction; -Monitor for post-obstructive polyuria; will need to start IVF to avoid volume depletion; -Restart flomax, add finasteride; -Avoid nephrotoxic agents;
--- NOTE | 2018-07-18 13:50 | PN ---
DATE: 07/18/2018 LOCATION: ICU 12. SUBJECTIVE: This is an 87-year-old male, seen and examined early in rounds with the staff in the floor without any significant clinical changes or reported active bleeding, but with subsequent drop of hemoglobin and hematocrit with today's lab results showed hemoglobin of 7.8, hematocrit 24 with low indices, highly suggestive of hypochromic microcytic anemia, sodium of 130, potassium 5.3 with CO2 content of 21, BUN 28, creatinine 1.7, blood glucose level 115 with phosphorus 5 and low total protein. Again, the official report of recently done CAT scan of the abdomen and pelvis is seen. PHYSICAL EXAMINATION: GENERAL: An 87-year-old male. VITAL SIGNS: Afebrile with pulse of 60, respiratory rate of 14-16 with blood pressure 150/66. HEENT: Showed pale, dry oral mucous membrane. Nonicteric sclerae. LUNGS: Few scattered crepitation. Decreased air entry at bases. HEART: Positive S1 and S2. ABDOMEN: Soft with mild generalized tenderness. No mass or organomegaly. No rebound tenderness or guarding. EXTREMITIES: Without significant cyanosis or clubbing, but lower extremities mild edematous changes. IMPRESSION: 1. Recent history of melena, rule out upper versus lower gastrointestinal blood loss, to rule out occult gastrointestinal malignancy. 2. Cardiac arrhythmia, by recent history. 3. Abnormal CAT scan of the abdomen and pelvis. 4. Hyponatremia with hyperphosphatemia, by recent history. 5. Dehydration with prerenal azotemia. 6. Possible urinary tract infection with obstruction was raised strongly with abnormal CAT scan of the abdomen and pelvis. SUGGESTIONS: 1. Continue current management. 2. Due to the patient's severe anemia with subsequent drop of hemoglobin and hematocrit, upper endoscopy to be scheduled at a.m. when the patient is more stable clinically. 3. Blood transfusion to keep hemoglobin around 10 grams percent. 4. Follow up in cancer markers. 5. Further recommendation to follow. Shakila Dubose MD
[2018-07-18] MEDS: Nitroglycerin 50mg in D5W 50 MG/250 ML BOTTLE IV SCH (18:44)
[2018-07-18 19:17] LABS: BASO % 0.5 % (0.0-2.0); EOS % 0.3 % (0.0-4.0); HEMOGLOBIN 8.4 g/dL (12.0-18.0); LYMPH # 1.3 K/uL (1.0-4.3); LYMPH % 16.6 % (20.0-40.0); MEAN CELL VOLUME 81.4 fL (80.0-94.0); MEAN CORPUSCULAR HEMOGLOBIN 26.5 pg (27.0-31.0); MEAN CORPUSCULAR HGB CONC 32.6 g/dL (33.0-37.0); MEAN PLATELET VOLUME 8.7 fL (7.2-11.7); MONO # 0.9 K/uL (0.0-0.8); NEUT # 5.4 K/uL (1.8-7.0); NEUT % 70.6 % (50.0-75.0); NRBC % 0.1 % (0.0-2.0); RBC 3.18 Mil/uL (4.40-5.90); WHITE BLOOD COUNT 7.7 K/uL (4.8-10.8)
[2018-07-18 19:34] LABS: ALB/GLOB RATIO 1.4 (1.0-2.1); ALBUMIN 3.8 g/dL (3.5-5.0); CALCIUM 9.1 mg/dl (8.6-10.4)
--- NOTE | 2018-07-18 20:13 | CP.PCM.PN ---
Subjective - Date & Time of Evaluation Date of Evaluation: 07/18/18 - Subjective Subjective: patient seen today no nausea no vomiting no dizziness no fever no shortness of breath diarrhea Objective - Vital Signs/Intake and Output Vital Signs (last 24 hours): Temp Pulse Resp BP Pulse Ox 98.4 F 71 16 181/79 H 98 07/18/18 17:00 07/18/18 19:01 07/18/18 19:01 07/18/18 19:01 07/18/18 19:01 Intake and Output: 07/18/18 07/19/18 18:59 06:59 Intake Total 257 62 Output Total 5100 Balance -4843 62 - Medications Medications: Current Medications Acetaminophen (Tylenol 325mg Tab) 650 mg PO Q6 PRN PRN Reason: Pain, moderate (4-7) Last Admin: 07/17/18 22:33 Dose: 650 mg Aspirin (Aspirin Chewable) 81 mg PO DAILY [facility] Last Admin: 07/18/18 10:40 Dose: 81 mg Nitroglycerin/Dextrose (Nitroglycerin 50 Mg/250 Ml D5w) 50 mg in 250 mls @ 1.5 mls/hr IV .Q24H [facility]; Protocol Last Titration: 07/18/18 19:54 Dose: 40 mcg/min, 12 mls/hr Levothyroxine Sodium (Synthroid) 25 mcg PO DAILY@0630 [facility] Pantoprazole Sodium (Protonix Ec Tab) 40 mg PO DAILY [facility] Last Admin: 07/18/18 10:41 Dose: 40 mg Sitagliptin Phosphate (Januvia) 100 mg PO DAILY [facility] Last Admin: 07/18/18 10:40 Dose: 100 mg - Labs Labs: 07/18/18 19:14 07/18/18 19:14 PT 11.3 SECONDS (9.7-12.2) 07/16/18 15:59 INR 1.0 07/16/18 15:59 APTT 43 SECONDS (21-34) H 07/16/18 15:59 - Constitutional Appears: Well - Head Exam Head Exam: ATRAUMATIC, NORMAL INSPECTION, NORMOCEPHALIC - Eye Exam Eye Exam: EOMI, Normal appearance, PERRL Pupil Exam: NORMAL ACCOMODATION, PERRL - ENT Exam ENT Exam: Mucous Membranes Moist, Normal Exam - Neck Exam Neck Exam: Full ROM, Normal Inspection. absent: Lymphadenopathy - Respiratory Exam Respiratory Exam: Decreased Breath Sounds - Cardiovascular Exam Cardiovascular Exam: REGULAR RHYTHM, +S1, +S2 - GI/Abdominal Exam GI & Abdominal Exam: Soft, Diminished Bowel Sounds - Rectal Exam Rectal Exam: Deferred - Neurological Exam Neurological Exam: Oriented x3 Assessment and Plan - Assessment and Plan (Free Text) Plan: aspirin chewable januvia nitroglycerin protonix ec tab synthroid tylenol medications reviewed labs reviewed vitals reviewed
--- NOTE | 2018-07-18 22:11 | PN ---
DATE: 07/18/2018 SUBJECTIVE: The patient's lowest heart rate is within the upper 30s. It is running in the 50s and 60s. He denies any dizziness. He was evaluated earlier by Dr. Lowery. He did not require external pacing or IV atropine so far. He denies any chest pain. PHYSICAL EXAMINATION: VITAL SIGNS: Blood pressure 168/59, heart rate 51, temperature 98.7. HEENT: Pale conjunctivae. CHEST: Clear. HEART: S1 and S2, regular. EXTREMITIES: 1+ edema. LABORATORY DATA: Today's SMA-7: Sodium 130, potassium 5.3, chloride 102, CO2 of 21, glucose of 115, BUN 28, creatinine 1.7. TSH level was 26. Today's hemoglobin and hematocrit 7.8 and 24 with a drop of nearly 1.5 g of hemoglobin. White count and platelet count are within normal limits. Carotid Doppler was performed. The report is still pending. Abdomen and pelvic CT scan revealed chronic bladder outlet obstruction with severe bladder distention, trabeculation formation, and cellulite formation, associated severe bilateral hydronephrosis. ASSESSMENT: 1. Symptomatic bradycardia. The range of correctable causes are medications including beta blockers and clonidine, hyperkalemia, significant hypothyroidism. 2. Significant hypothyroidism which is newly diagnosed. 3. Severe bilateral hydronephrosis, most likely related to bladder neck obstruction which is requiring [place] catheter insertion which resulted in hematuria 4. Acute renal insufficiency. 5. Worsening anemia. 6. Mild hyperkalemia. 7. Moderate calcified aortic valve with mild aortic stenosis and mild aortic insufficiency. 8. Moderate pulmonary hypertension. RECOMMENDATIONS: Continue current Tridil infusion. Continue aspirin 81 mg once a day. Synthroid was started at 25 mcg once a day. I did review the echocardiography report which revealed normal ejection fraction, moderately dilated left atrium, moderately calcified aortic valve with mild aortic insufficiency and mild aortic stenosis. The valve area was measured at 1.5 sq cm. Mild pulmonary hypertension. Consider urology consultation. Darin Estes MD MTDMicheal
[2018-07-19] MEDS: Levothyroxine 25 MCG TAB PO SCH (05:44)
[2018-07-19 06:17] LABS: BASO % 0.5 % (0.0-2.0); HEMOGLOBIN 8.2 g/dL (12.0-18.0); RED CELL DISTRIBUTION WIDTH 16.3 % (11.5-14.5)
[2018-07-19 06:19] LABS: EOS % 0.4 % (0.0-4.0); LYMPH # 1.6 K/uL (1.0-4.3); LYMPH % 21.2 % (20.0-40.0); MEAN CELL VOLUME 81.4 fL (80.0-94.0); MEAN CORPUSCULAR HEMOGLOBIN 27.6 pg (27.0-31.0); MEAN CORPUSCULAR HGB CONC 33.9 g/dL (33.0-37.0); MEAN PLATELET VOLUME 8.2 fL (7.2-11.7); MONO % 13.1 % (0.0-10.0); NEUT # 4.9 K/uL (1.8-7.0); NEUT % 64.8 % (50.0-75.0); RBC 2.98 Mil/uL (4.40-5.90); WHITE BLOOD COUNT 7.6 K/uL (4.8-10.8)
[2018-07-19 06:37] LABS: ALB/GLOB RATIO 1.2 (1.0-2.1); ALBUMIN 3.5 g/dL (3.5-5.0); ALT/SGPT 18 U/L (21-72); AST/SGOT 26 U/L (17-59); BLOOD UREA NITROGEN 23 mg/dL (9-20); CALCIUM 9.1 mg/dl (8.6-10.4); GFR NON-AFRICAN AMERICAN 58
[2018-07-19] MEDS: Sodium Chloride 0.45% 1,000 ML IV SCH ×2 (09:11→20:41)
[2018-07-19] MEDS: Pantoprazole 40 mg EC Tab PO SCH (09:58)
--- NOTE | 2018-07-19 10:25 | CP.PCM.PN ---
Subjective - Date & Time of Evaluation Date of Evaluation: 07/19/18 Time of Evaluation: 09:00 - Subjective Subjective: Nephro Consult Note for Dr. Garrett Segura DO PGY-3 Patient seen and examined at bedside in the ICU. Reports feeling considerably better today. HR irregular but in 60's on bedside monitor at time of exam, and BP more controlled. Put out approx 5L urine after terrell placement yesterday, pinkish urine noted in terrell today. Objective - Vital Signs/Intake and Output Vital Signs (last 24 hours): Temp Pulse Resp BP Pulse Ox 98.4 F 67 14 163/84 H 96 07/18/18 17:00 07/19/18 09:00 07/19/18 09:00 07/19/18 08:58 07/19/18 09:00 Intake and Output: 07/19/18 07/19/18 06:59 18:59 Intake Total 444 233 Output Total 1600 350 Balance -1156 -117 - Medications Medications: Current Medications Acetaminophen (Tylenol 325mg Tab) 650 mg PO Q6 PRN PRN Reason: Pain, moderate (4-7) Last Admin: 07/17/18 22:33 Dose: 650 mg Aspirin (Aspirin Chewable) 81 mg PO DAILY [facility] Last Admin: 07/19/18 09:57 Dose: 81 mg Finasteride (Proscar) 5 mg PO DAILY [facility] Last Admin: 07/19/18 09:57 Dose: 5 mg Nitroglycerin/Dextrose (Nitroglycerin 50 Mg/250 Ml D5w) 50 mg in 250 mls @ 1.5 mls/hr IV .Q24H [facility]; Protocol Last Titration: 07/19/18 08:00 Dose: 40 mcg/min, 12 mls/hr Sodium Chloride (Sodium Chloride 0.45%) 1,000 mls @ 80 mls/hr IV .[id number] [facility] Last Admin: 07/19/18 09:11 Dose: 80 mls/hr Levothyroxine Sodium (Synthroid) 25 mcg PO DAILY@0630 [facility] Last Admin: 07/19/18 05:44 Dose: 25 mcg Losartan Potassium (Cozaar) 50 mg PO DAILY [facility] Last Admin: 07/19/18 09:57 Dose: 50 mg Pantoprazole Sodium (Protonix Ec Tab) 40 mg PO DAILY [facility] Last Admin: 07/19/18 09:58 Dose: 40 mg Sitagliptin Phosphate (Januvia) 100 mg PO DAILY [facility] Last Admin: 07/18/18 10:40 Dose: 100 mg Tamsulosin HCl (Flomax) 0.4 mg PO DAILY [facility] Last Admin: 07/19/18 09:57 Dose: 0.4 mg - Labs Labs: 07/19/18 06:06 07/19/18 06:06 PT 11.3 SECONDS (9.7-12.2) 07/16/18 15:59 INR 1.0 07/16/18 15:59 APTT 43 SECONDS (21-34) H 07/16/18 15:59 - Additional Findings Additional findings: - Constitutional Appears: Non-toxic, No Acute Distress - Head Exam Head Exam: ATRAUMATIC, NORMAL INSPECTION, NORMOCEPHALIC - Eye Exam Eye Exam: Normal appearance. absent: Conjunctival injection, Scleral icterus Pupil Exam: absent: Irregular, Unequal - ENT Exam ENT Exam: Mucous Membranes Moist - Neck Exam Neck exam: Negative for: Lymphadenopathy, Tenderness, Thyromegaly - Respiratory Exam Respiratory Exam: Clear to Auscultation Bilateral, NORMAL BREATHING PATTERN. absent: Accessory Muscle Use, Chest Wall Tenderness, Decreased Breath Sounds, Rales, Rhonchi, Wheezes - Cardiovascular Exam Cardiovascular Exam: Irregular Rhythm, +S1, +S2. absent: Tachycardia/Bradycardia, JVD, RRR - GI/Abdominal Exam GI & Abdominal Exam: Normal Bowel Sounds, Soft. absent: Diminished Bowel Soun ds, Hyperactive Bowel Sounds, Hypoactive Bowel Sounds, Tenderness - Terrell in place with pinkish urine in tubing - Extremities Exam Extremities exam: Positive for: normal inspection, pedal pulses present. Negative for: calf tenderness, pedal edema, tenderness - Back Exam Back exam: absent: CVA tenderness (L), CVA tenderness (R) - Neurological Exam awake and alert, following all commands appropriately, moving all extremities spontaneously - Psychiatric Exam Psychiatric exam: Normal Affect, Normal Mood - Skin Skin Exam: Dry, Intact, Normal Color, Warm Assessment and Plan - Assessment and Plan (Free Text) Assessment: This is an 87 yo M with PMH of HTN, DM, anemia, and hyperlipidemia who presented to the ED on 07/16/18 for evaluation of dyspnea and dizziness x1 week. Patient was admitted to the ICU for symptomatic hypertensive urgency/bradycardia in the setting of advanced heart block. Nephrology consulted for LILLIAM (Cr 1.5 on arrival, now 1.7, was 1.1 during Jan 2018 ED visit) and persistent hyperkalemia. 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 2) HTN urgency 3) LILLIAM 2/2 obstructive uropathy - improving 4) BPH, off medications 5) DM 6) Hypothyroidism on synthroid 7) Persistent Hyperkalemia -LILLIAM and hyperkalemia 2/2 obstructive nephropathy - improving Cr improved 1.7 to 1.2, continue to monitor Off of meds for BPH x3 weeks, started developing decreased urination and likely overflow incontinence overnight Hypothyroidism likely contributory, TSH very elevated, but T4/Free T4 wnl, f/u T3 studies; continue synthroid ~5L put out with terrell, leave in place to allow decompression, recommend restarting BPH meds prior to terrell removal Hyperkalemia resolved, monitor closely in setting of underlying cardiac conduction abnormality -HTN urgency with BP 220's+ x1 week as outpatient, seen to have similar BP elevations during ED visit in Jan 2018 Continue Nitro drip for BP control -Advanced heart block, EP consulted, appreciate their recs; reported as HR down 20's once Pending possible pacer Hold all antiarrhythmics given bradycardia and advanced block Patient discussed and reviewed with attending, Dr. Tucker
--- NOTE | 2018-07-19 13:26 | CP.PCM.PN ---
Subjective - Date & Time of Evaluation Date of Evaluation: 07/19/18 - Subjective Subjective: patient examined today no nausea no vomiting no diizziness no chest pain no diarrhea no fever no sob Objective - Vital Signs/Intake and Output Vital Signs (last 24 hours): Temp Pulse Resp BP Pulse Ox 98.4 F 59 L 17 179/73 H 91 L 07/18/18 17:00 07/19/18 12:57 07/19/18 12:57 07/19/18 12:58 07/19/18 12:57 Intake and Output: 07/19/18 07/19/18 06:59 18:59 Intake Total 444 569 Output Total 1600 700 Balance -1156 -131 - Medications Medications: Current Medications Acetaminophen (Tylenol 325mg Tab) 650 mg PO Q6 PRN PRN Reason: Pain, moderate (4-7) Last Admin: 07/17/18 22:33 Dose: 650 mg Amlodipine Besylate (Norvasc) 5 mg PO DAILY [facility] Aspirin (Aspirin Chewable) 81 mg PO DAILY [facility] Last Admin: 07/19/18 09:57 Dose: 81 mg Doxazosin Mesylate (Cardura) 1 mg PO DAILY [facility] Finasteride (Proscar) 5 mg PO DAILY [facility] Last Admin: 07/19/18 09:57 Dose: 5 mg Nitroglycerin/Dextrose (Nitroglycerin 50 Mg/250 Ml D5w) 50 mg in 250 mls @ 1.5 mls/hr IV .Q24H [facility]; Protocol Last Titration: 07/19/18 08:00 Dose: 40 mcg/min, 12 mls/hr Sodium Chloride (Sodium Chloride 0.45%) 1,000 mls @ 80 mls/hr IV .[id number] [facility] Last Admin: 07/19/18 09:11 Dose: 80 mls/hr Levothyroxine Sodium (Synthroid) 25 mcg PO DAILY@0630 [facility] Last Admin: 07/19/18 05:44 Dose: 25 mcg Losartan Potassium (Cozaar) 50 mg PO DAILY [facility] Last Admin: 07/19/18 09:57 Dose: 50 mg Minoxidil (Minoxidil) 2.5 mg PO DAILY [facility] Pantoprazole Sodium (Protonix Ec Tab) 40 mg PO DAILY [facility] Last Admin: 07/19/18 09:58 Dose: 40 mg Sitagliptin Phosphate (Januvia) 100 mg PO DAILY [facility] Last Admin: 07/18/18 10:40 Dose: 100 mg Tamsulosin HCl (Flomax) 0.4 mg PO DAILY [facility] Last Admin: 07/19/18 09:57 Dose: 0.4 mg - Labs Labs: 07/19/18 06:06 07/19/18 06:06 PT 11.3 SECONDS (9.7-12.2) 07/16/18 15:59 INR 1.0 07/16/18 15:59 APTT 43 SECONDS (21-34) H 07/16/18 15:59 - Constitutional Appears: Well - Head Exam Head Exam: ATRAUMATIC, NORMAL INSPECTION, NORMOCEPHALIC - Eye Exam Eye Exam: EOMI, Normal appearance, PERRL Pupil Exam: NORMAL ACCOMODATION, PERRL - ENT Exam ENT Exam: Mucous Membranes Moist, Normal Exam - Neck Exam Neck Exam: Full ROM, Normal Inspection. absent: Lymphadenopathy - Respiratory Exam Respiratory Exam: Decreased Breath Sounds - Cardiovascular Exam Cardiovascular Exam: REGULAR RHYTHM, +S1, +S2 - GI/Abdominal Exam GI & Abdominal Exam: Soft, Diminished Bowel Sounds - Rectal Exam Rectal Exam: Deferred - Neurological Exam Neurological Exam: Oriented x3 Assessment and Plan - Assessment and Plan (Free Text) Plan: asprin chewable cardura cozaar flomax januvia minoxidil nitroglycerin norvasc protonix ec tab sodium chloride synthroid tylenol medications reviewed labs reviewed vitals reviewed
--- NOTE | 2018-07-19 14:10 | VASCLAB ---
Date of service: 07/18/2018 PROCEDURE: Carotid Duplex Exam. HISTORY: DIZZINESS COMPARISON: None available. TECHNIQUE: Grayscale and duplex Doppler evaluation of the cervical carotid and vertebral arteries were performed. The common carotid, carotid bifurcations and cervical Internal Carotid Artery (ICA) and proximal External Carotid Artery (ECA) were evaluated. The vertebral arteries were evaluated for gross patency and flow direction. Report prepared by LINDSAY Roper FINDINGS: RIGHT CAROTID ARTERIES: 1. Common Carotid Artery: No significant focal plaque formation of the right common carotid artery. Maximum Peak Systolic velocity: 128 cm/sec: End-diastolic velocity 14 cm/sec. 2. Carotid Bifurcation: plaque formation. Maximum Peak Systolic velocity: 65 cm/sec: End-diastolic velocity 10 cm/sec. 3. Internal Carotid Artery: Plaque description: 3.1. Proximal Segment: Peak systolic velocity 74 cm/sec: End-diastolic velocity 17 cm/sec - % stenosis 0-15% 3.2. Middle Segment: Peak systolic velocity 92 cm/sec: End-diastolic velocity 22 cm/sec - % stenosis 0-15% 3.3. Distal Segment: Peak systolic velocity 99 cm/sec: End-diastolic velocity 28 cm/sec - % stenosis 0-15% 4. External Carotid Artery: No significant focal plaque formation. Peak systolic velocity 136 cm/sec 5. ICA/CCA Ratio: 1.0 LEFT CAROTID ARTERIES: 1. Common Carotid Artery: No significant focal plaque formation of the left common carotid artery. Maximum Peak Systolic velocity: 125 cm/sec: End-diastolic velocity 15 cm/sec. 2. Carotid Bifurcation: plaque formation. Maximum Peak Systolic velocity: 69 cm/sec: End-diastolic velocity 7 cm/sec. 3. Internal Carotid Artery: Plaque description: 3.1. Proximal Segment: Peak systolic velocity 92 cm/sec: End-diastolic velocity 13 cm/sec - % stenosis 0-15% 3.2. Middle Segment: Peak systolic velocity 111 cm/sec: End-diastolic velocity 24 cm/sec - % stenosis 0-15% 3.3. Distal Segment: Peak systolic velocity 101 cm/sec: End-diastolic velocity 19 cm/sec - % stenosis 0-15% 4. External Carotid Artery: No significant focal plaque formation. Peak systolic velocity 197 cm/sec 5. ICA/CCA Ratio: 1.3 VERTEBRAL ARTERIES: 1. Right Vertebral Artery: The right vertebral artery flow direction is antegrade. 2. Left Vertebral Artery: The left vertebral artery flow direction is antegrade. Increased velocity noted of 186cm/s. OTHER FINDINGS: Technically difficult exam due to equipment interference at bedside. IMPRESSION: Duplex scan does not suggest hemodynamically significant stenosis of bilateral extracranial carotid arteries. Tortuosity noted of bilateral ICA.
--- NOTE | 2018-07-19 15:11 | CP.CCUPN ---
<Augie Vegas - Last Filed: 07/19/18 15:23> CCU Subjective - Physician Review Subjective (Free Text): 07/18/18 14:14 PGY-1 Critical Care Progress Note for Dr. Ness Patient seen and examined at bedside. No acute events overnight. Patient denies any dizziness, headache, lightheadedness, n/v/d, abdominal pain. Patient reports improved abdominal distention after significant urinary output with terrell insertion. CCU Objective - Vital Signs / Intake & Output Vital Signs (Last 4 hours): Vital Signs Pulse Resp BP Pulse Ox 07/19/18 14:00 87 9 L 98 07/19/18 13:58 86 15 160/83 H 95 07/19/18 13:00 67 17 97 07/19/18 12:58 72 16 179/73 H 96 07/19/18 12:57 59 L 17 91 L 07/19/18 12:44 64 15 188/79 H 95 07/19/18 12:43 67 19 187/77 H 96 07/19/18 12:00 69 14 98 07/19/18 11:59 65 11 L 182/125 H 98 Intake and Output (Last 8hrs): Intake & Output 07/19/18 07/19/18 07/19/18 06:59 14:59 22:59 Intake Total 72 935 Output Total 1050 975 Balance -978 -40 Weight 154 lb 3 oz Intake: IV 125 Intake, IV Amount 72 570 Left Antecubital 72 90 Lt AC y-site 480 Oral 240 Output: Urine 1050 975 Urethral (Terrell) 1050 975 Other: # Bowel Movements 0 - Physical Exam Head: Positive for: Atraumatic, Normocephalic Pupils: Positive for: PERRL Extroacular Muscles: Positive for: EOMI Mouth: Positive for: Moist Mucous Membranes Respiratory/Chest: Positive for: Clear to Auscultation Cardiovascular: Positive for: Normal S1, S2, Bradycardic Abdomen: Positive for: Distention. Negative for: Tenderness Neurological: Positive for: GCS=15, CN II-XII Intact Skin: Positive for: Warm, Dry, Normal Color Psychiatric: Positive for: Alert, Oriented x 3 - Medications Active Medications: Active Medications Generic Name Dose Route Start Last Admin Trade Name Freq PRN Reason Stop Dose Admin Acetaminophen 650 mg 07/17/18 21:59 07/17/18 22:33 Tylenol 325mg Tab PO 650 mg Q6 PRN Administration Pain, moderate (4-7) Amlodipine Besylate 5 mg 07/19/18 13:15 07/19/18 13:46 Norvasc PO 5 mg DAILY HAILEY Administration Aspirin 81 mg 07/17/18 10:00 07/19/18 09:57 Aspirin Chewable PO 81 mg DAILY HAILEY Administration Doxazosin Mesylate 1 mg 07/19/18 13:15 07/19/18 13:46 Cardura PO 1 mg DAILY HAILEY Administration Finasteride 5 mg 07/19/18 10:00 07/19/18 09:57 Proscar PO 5 mg DAILY HAILEY Administration Nitroglycerin/Dextrose 50 mg in 250 mls @ 1.5 mls/hr 07/17/18 17:45 07/19/18 14:00 Nitroglycerin 50 Mg/250 Ml D5w IV 30 mcg/min .Q24H HAILEY 9 mls/hr Titration Protocol 5 MCG/MIN Sodium Chloride 1,000 mls @ 80 mls/hr 07/19/18 08:45 07/19/18 09:11 Sodium Chloride 0.45% IV 80 mls/hr .[id number] HAILEY Administration Levothyroxine Sodium 25 mcg 07/19/18 06:30 07/19/18 05:44 Synthroid PO 25 mcg DAILY@0630 HAILEY Administration Losartan Potassium 50 mg 07/19/18 10:00 07/19/18 09:57 Cozaar PO 50 mg DAILY HAILEY Administration Minoxidil 2.5 mg 07/19/18 13:00 07/19/18 13:43 Minoxidil PO Not Given DAILY [facility] Pantoprazole Sodium 40 mg 07/17/18 10:00 07/19/18 09:58 Protonix Ec Tab PO 40 mg DAILY HAILEY Administration Sitagliptin Phosphate 100 mg 07/17/18 10:00 07/19/18 14:02 Januvia PO 100 mg DAILY HAILEY Administration Tamsulosin HCl 0.4 mg 07/19/18 10:00 07/19/18 09:57 Flomax PO 0.4 mg DAILY HAILEY Administration - Patient Studies Lab Studies: Microbiology Studies 07/18/18 12:53 Urine Culture - Final Urine,Terrell No Growth (<1,000 CFU/ML) 04/16/19 13:48 MRSA Culture (Admit) - Final Nose MRSA NOT DETECTED Lab Studies 07/19/18 07/19/18 07/19/18 Range/Units 09:02 09:02 06:06 WBC (4.8-10.8) K/uL RBC (4.40-5.90) Mil/uL Hgb (12.0-18.0) g/dL Hct (35.0-51.0) % MCV (80.0-94.0) fL MCH (27.0-31.0) pg MCHC (33.0-37.0) g/dL RDW (11.5-14.5) % Plt Count (130-400) K/uL MPV (7.2-11.7) fL Neut % (Auto) (50.0-75.0) % Lymph % (Auto) (20.0-40.0) % [place] % (Auto) (0.0-10.0) % Eos % (Auto) (0.0-4.0) % Baso % (Auto) (0.0-2.0) % Neut # (Auto) (1.8-7.0) K/uL Lymph # (Auto) (1.0-4.3) K/uL [place] # (Auto) (0.0-0.8) K/uL Eos # (Auto) (0.0-0.7) K/uL Baso # (Auto) (0.0-0.2) K/uL Sodium 136 (132-148) mmol/L Potassium 4.8 (3.6-5.2) mmol/L Chloride 107 (98-107) mmol/L Carbon Dioxide 22 (22-30) mmol/L Anion Gap 13 (10-20) BUN 23 H (9-20) mg/dL Creatinine 1.2 (0.8-1.5) mg/dL Est GFR ( Amer) > 60 Est GFR (Non-Af Amer) 58 Random Glucose 107 D (75-110) mg/dL Calcium 9.1 (8.6-10.4) mg/dl Phosphorus 4.0 (2.5-4.5) mg/dL Magnesium 1.8 (1.6-2.3) mg/dL Total Bilirubin 0.4 (0.2-1.3) mg/dL AST 26 (17-59) U/L ALT 18 L D (21-72) U/L Alkaline Phosphatase 42 (38-126) U/L Total Protein 6.3 (6.3-8.3) g/dL Albumin 3.5 (3.5-5.0) g/dL Globulin 2.8 (2.2-3.9) gm/dL Albumin/Globulin Ratio 1.2 (1.0-2.1) Prostate Specific Ag 1.56 (0.00-4.0) ng/mL Free T4 0.91 (0.78-2.19) ng/dL TSH 3rd Generation 17.30 H (0.46-4.68) mIU/L U Random Total Protein (22-128) mg/g creat 07/19/18 07/18/18 07/18/18 Range/Units 06:06 19:14 19:14 WBC 7.6 7.7 (4.8-10.8) K/uL RBC 2.98 L 3.18 L (4.40-5.90) Mil/uL Hgb 8.2 L 8.4 L (12.0-18.0) g/dL Hct 24.3 L 25.9 L (35.0-51.0) % MCV 81.4 81.4 (80.0-94.0) fL MCH 27.6 26.5 L (27.0-31.0) pg MCHC 33.9 32.6 L (33.0-37.0) g/dL RDW 16.3 H 16.0 H (11.5-14.5) % Plt Count 245 264 (130-400) K/uL MPV 8.2 8.7 (7.2-11.7) fL Neut % (Auto) 64.8 70.6 (50.0-75.0) % Lymph % (Auto) 21.2 16.6 L (20.0-40.0) % [place] % (Auto) 13.1 H 12.0 H (0.0-10.0) % Eos % (Auto) 0.4 0.3 (0.0-4.0) % Baso % (Auto) 0.5 0.5 (0.0-2.0) % Neut # (Auto) 4.9 5.4 (1.8-7.0) K/uL Lymph # (Auto) 1.6 1.3 (1.0-4.3) K/uL [place] # (Auto) 1.0 H 0.9 H (0.0-0.8) K/uL Eos # (Auto) 0.0 0.0 (0.0-0.7) K/uL Baso # (Auto) 0.0 0.0 (0.0-0.2) K/uL Sodium 133 (132-148) mmol/L Potassium 5.1 (3.6-5.2) mmol/L Chloride 102 (98-107) mmol/L Carbon Dioxide 23 (22-30) mmol/L Anion Gap 13 (10-20) BUN 29 H (9-20) mg/dL Creatinine 1.6 H (0.8-1.5) mg/dL Est GFR ( Amer) 50 Est GFR (Non-Af Amer) 41 Random Glucose 166 H D (75-110) mg/dL Calcium 9.1 (8.6-10.4) mg/dl Phosphorus 4.7 H (2.5-4.5) mg/dL Magnesium 1.8 (1.6-2.3) mg/dL Total Bilirubin 0.2 (0.2-1.3) mg/dL AST 24 (17-59) U/L ALT 27 (21-72) U/L Alkaline Phosphatase 50 (38-126) U/L Total Protein 6.6 (6.3-8.3) g/dL Albumin 3.8 (3.5-5.0) g/dL Globulin 2.8 (2.2-3.9) gm/dL Albumin/Globulin Ratio 1.4 (1.0-2.1) Prostate Specific Ag (0.00-4.0) ng/mL Free T4 (0.78-2.19) ng/dL TSH 3rd Generation (0.46-4.68) mIU/L U Random Total Protein (22-128) mg/g creat 07/18/18 Range/Units 14:30 WBC (4.8-10.8) K/uL RBC (4.40-5.90) Mil/uL Hgb (12.0-18.0) g/dL Hct (35.0-51.0) % MCV (80.0-94.0) fL MCH (27.0-31.0) pg MCHC (33.0-37.0) g/dL RDW (11.5-14.5) % Plt Count (130-400) K/uL MPV (7.2-11.7) fL Neut % (Auto) (50.0-75.0) % Lymph % (Auto) (20.0-40.0) % [place] % (Auto) (0.0-10.0) % Eos % (Auto) (0.0-4.0) % Baso % (Auto) (0.0-2.0) % Neut # (Auto) (1.8-7.0) K/uL Lymph # (Auto) (1.0-4.3) K/uL [place] # (Auto) (0.0-0.8) K/uL Eos # (Auto) (0.0-0.7) K/uL Baso # (Auto) (0.0-0.2) K/uL Sodium (132-148) mmol/L Potassium (3.6-5.2) mmol/L Chloride (98-107) mmol/L Carbon Dioxide (22-30) mmol/L Anion Gap (10-20) BUN (9-20) mg/dL Creatinine (0.8-1.5) mg/dL Est GFR ( Amer) Est GFR (Non-Af Amer) Random Glucose (75-110) mg/dL Calcium (8.6-10.4) mg/dl Phosphorus (2.5-4.5) mg/dL Magnesium (1.6-2.3) mg/dL Total Bilirubin (0.2-1.3) mg/dL AST (17-59) U/L ALT (21-72) U/L Alkaline Phosphatase (38-126) U/L Total Protein (6.3-8.3) g/dL Albumin (3.5-5.0) g/dL Globulin (2.2-3.9) gm/dL Albumin/Globulin Ratio (1.0-2.1) Prostate Specific Ag (0.00-4.0) ng/mL Free T4 (0.78-2.19) ng/dL TSH 3rd Generation (0.46-4.68) mIU/L U Random Total Protein 1198 H (22-128) mg/g creat Laboratory Results - last 24 hr 07/18/18 07/18/18 07/18/18 14:30 19:14 19:14 WBC 7.7 RBC 3.18 L Hgb 8.4 L Hct 25.9 L MCV 81.4 MCH 26.5 L MCHC 32.6 L RDW 16.0 H Plt Count 264 MPV 8.7 Neut % (Auto) 70.6 Lymph % (Auto) 16.6 L [place] % (Auto) 12.0 H Eos % (Auto) 0.3 Baso % (Auto) 0.5 Neut # (Auto) 5.4 Lymph # (Auto) 1.3 [place] # (Auto) 0.9 H Eos # (Auto) 0.0 Baso # (Auto) 0.0 Sodium 133 Potassium 5.1 Chloride 102 Carbon Dioxide 23 Anion Gap 13 BUN 29 H Creatinine 1.6 H Est GFR ( Amer) 50 Est GFR (Non-Af Amer) 41 Random Glucose 166 H D Calcium 9.1 Phosphorus 4.7 H Magnesium 1.8 Total Bilirubin 0.2 AST 24 ALT 27 Alkaline Phosphatase 50 Total Protein 6.6 Albumin 3.8 Globulin 2.8 Albumin/Globulin Ratio 1.4 Prostate Specific Ag Free T4 TSH 3rd Generation U Random Total Protein 1198 H 07/19/18 07/19/18 07/19/18 06:06 06:06 09:02 WBC 7.6 RBC 2.98 L Hgb 8.2 L Hct 24.3 L MCV 81.4 MCH 27.6 MCHC 33.9 RDW 16.3 H Plt Count 245 MPV 8.2 Neut % (Auto) 64.8 Lymph % (Auto) 21.2 [place] % (Auto) 13.1 H Eos % (Auto) 0.4 Baso % (Auto) 0.5 Neut # (Auto) 4.9 Lymph # (Auto) 1.6 [place] # (Auto) 1.0 H Eos # (Auto) 0.0 Baso # (Auto) 0.0 Sodium 136 Potassium 4.8 Chloride 107 Carbon Dioxide 22 Anion Gap 13 BUN 23 H Creatinine 1.2 Est GFR ( Amer) > 60 Est GFR (Non-Af Amer) 58 Random Glucose 107 D Calcium 9.1 Phosphorus 4.0 Magnesium 1.8 Total Bilirubin 0.4 AST 26 ALT 18 L D Alkaline Phosphatase 42 Total Protein 6.3 Albumin 3.5 Globulin 2.8 Albumin/Globulin Ratio 1.2 Prostate Specific Ag 1.56 Free T4 TSH 3rd Generation 17.30 H U Random Total Protein 07/19/18 09:02 WBC RBC Hgb Hct MCV MCH MCHC RDW Plt Count MPV Neut % (Auto) Lymph % (Auto) [place] % (Auto) Eos % (Auto) Baso % (Auto) Neut # (Auto) Lymph # (Auto) [place] # (Auto) Eos # (Auto) Baso # (Auto) Sodium Potassium Chloride Carbon Dioxide Anion Gap BUN Creatinine Est GFR ( Amer) Est GFR (Non-Af Amer) Random Glucose Calcium Phosphorus Magnesium Total Bilirubin AST ALT Alkaline Phosphatase Total Protein Albumin Globulin Albumin/Globulin Ratio Prostate Specific Ag Free T4 0.91 TSH 3rd Generation U Random Total Protein Radiology Impressions: Radiology Impressions Carotid Doppler Study 07/16/18 20:12 IMPRESSION: Duplex scan does not suggest hemodynamically significant stenosis of bilateral extracranial carotid arteries. Tortuosity noted of bilateral ICA. 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 Cardio Second Degree Mobitz Type I Heart Block -Cardiology on consult, Dr. Peterson -EP consult, Dr. Lowery --Recommend repeat studies following correction of thyroid function and electrolyte abnormalities --K normalized. Levothyroxine started. -Cardiac monitoring -Asymptomatic at this time Hypertensive Urgency -Patient asymptomatic -Goal BP <160/100 with reduction of MAP by approx 25-30% daily -Monitor for symptoms, monitor HR Meds -Nitro drip - to be discontinued today -Doxazosin, Minoxidil, Losartan, Norvasc (Minoxidil held while pt still on Nitro drip, avoiding hypotension) Pulm -Saturating well on room air -Maintain SPO2>92% Heme/ID -HgB stable -Monitor daily CBC Endo Hypothyroidism -TSH 26, no prior known hx thyroid dz -Start Levothyroxine 25mcg daily, f/u repeat studies -F/u with repeat EKGs as potential cause of bradycardia/arrhythmia DM -Home Januvia -Accuchecks ACHS -Hypoglycemia protocol Nephro -Adequate urine output -Monitor I and Os Neuro -A and O x3 GI Questionable GI bleed -Dark stools noted per ED note, but patient denies any kaylah blood or dark tarry stools -HgB stable 9.1 -Monitor CBC -GI consulted, Dr. 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 Kingsley - f/u recs -Meds --Proscar, Flomax, Doxasosin PPx -DVT: SCDs. Chemical anticoagulation c/i 2/2 questionable GI bleed -Protonix 40 mg PO daily Assessment and plan discussed with Dr. Thi Vegas, PGY-1 <Sunday Ness - Last Filed: 07/19/18 17:03> CCU Objective - Vital Signs / Intake & Output Vital Signs (Last 4 hours): Vital Signs Pulse Resp BP Pulse Ox 07/19/18 16:00 80 16 98 07/19/18 15:58 91 H 12 148/116 H 94 L 07/19/18 15:00 89 15 98 07/19/18 14:58 75 12 175/69 H 97 07/19/18 14:00 87 9 L 98 07/19/18 13:58 86 15 160/83 H 95 07/19/18 13:00 67 17 97 07/19/18 12:58 72 16 179/73 H 96 07/19/18 12:57 59 L 17 91 L Intake and Output (Last 8hrs): Intake & Output 07/19/18 07/19/18 07/19/18 06:59 14:59 22:59 Intake Total 72 935 178 Output Total 1050 975 225 Balance -978 -40 -47 Weight 154 lb 3 oz Intake: IV 125 Intake, IV Amount 72 570 178 Left Antecubital 72 90 18 Lt AC y-site 480 160 Oral 240 Output: Urine 1050 975 225 Urethral (Terrell) 1050 975 225 Other: # Bowel Movements 0 - Medications Active Medications: Active Medications Generic Name Dose Route Start Last Admin Trade Name Freq PRN Reason Stop Dose Admin Acetaminophen 650 mg 07/17/18 21:59 07/17/18 22:33 Tylenol 325mg Tab PO 650 mg Q6 PRN Administration Pain, moderate (4-7) Amlodipine Besylate 5 mg 07/19/18 13:15 07/19/18 13:46 Norvasc PO 5 mg DAILY HAILEY Administration Aspirin 81 mg 07/17/18 10:00 07/19/18 09:57 Aspirin Chewable PO 81 mg DAILY HAILEY Administration Doxazosin Mesylate 1 mg 07/19/18 13:15 07/19/18 13:46 Cardura PO 1 mg DAILY HAILEY Administration Finasteride 5 mg 07/19/18 10:00 07/19/18 09:57 Proscar PO 5 mg DAILY HAILEY Administration Nitroglycerin/Dextrose 50 mg in 250 mls @ 1.5 mls/hr 07/17/18 17:45 07/19/18 14:00 Nitroglycerin 50 Mg/250 Ml D5w IV 30 mcg/min .Q24H HAILEY 9 mls/hr Titration Protocol 5 MCG/MIN Sodium Chloride 1,000 mls @ 80 mls/hr 07/19/18 08:45 07/19/18 09:11 Sodium Chloride 0.45% IV 80 mls/hr .[id number] HAILEY Administration Ketorolac Tromethamine 60 mg 07/19/18 18:00 Toradol IVP Q6 HAILEY Levothyroxine Sodium 25 mcg 07/19/18 06:30 07/19/18 05:44 Synthroid PO 25 mcg DAILY@0630 HAILEY Administration Losartan Potassium 50 mg 07/19/18 10:00 07/19/18 09:57 Cozaar PO 50 mg DAILY HAILEY Administration Minoxidil 2.5 mg 07/19/18 13:00 07/19/18 13:43 Minoxidil PO Not Given DAILY HAILEY Pantoprazole Sodium 40 mg 07/17/18 10:00 07/19/18 09:58 Protonix Ec Tab PO 40 mg DAILY HAILEY Administration Sitagliptin Phosphate 100 mg 07/17/18 10:00 07/19/18 14:02 Januvia PO 100 mg DAILY HAILEY Administration Tamsulosin HCl 0.4 mg 07/19/18 10:00 07/19/18 09:57 Flomax PO 0.4 mg DAILY HAILEY Administration - Patient Studies Lab Studies: Microbiology Studies 07/18/18 12:53 Urine Culture - Final Urine,Terrell No Growth (<1,000 CFU/ML) 07/17/18 13:48 MRSA Culture (Admit) - Final Nose MRSA NOT DETECTED Lab Studies 07/19/18 07/19/18 07/19/18 Range/Units 09:02 09:02 06:06 WBC (4.8-10.8) K/uL RBC (4.40-5.90) Mil/uL Hgb (12.0-18.0) g/dL Hct (35.0-51.0) % MCV (80.0-94.0) fL MCH (27.0-31.0) pg MCHC (33.0-37.0) g/dL RDW (11.5-14.5) % Plt Count (130-400) K/uL MPV (7.2-11.7) fL Neut % (Auto) (50.0-75.0) % Lymph % (Auto) (20.0-40.0) % [place] % (Auto) (0.0-10.0) % Eos % (Auto) (0.0-4.0) % Baso % (Auto) (0.0-2.0) % Neut # (Auto) (1.8-7.0) K/uL Lymph # (Auto) (1.0-4.3) K/uL [place] # (Auto) (0.0-0.8) K/uL Eos # (Auto) (0.0-0.7) K/uL Baso # (Auto) (0.0-0.2) K/uL Sodium 136 (132-148) mmol/L Potassium 4.8 (3.6-5.2) mmol/L Chloride 107 (98-107) mmol/L Carbon Dioxide 22 (22-30) mmol/L Anion Gap 13 (10-20) BUN 23 H (9-20) mg/dL Creatinine 1.2 (0.8-1.5) mg/dL Est GFR ( Amer) > 60 Est GFR (Non-Af Amer) 58 Random Glucose 107 D (75-110) mg/dL Calcium 9.1 (8.6-10.4) mg/dl Phosphorus 4.0 (2.5-4.5) mg/dL Magnesium 1.8 (1.6-2.3) mg/dL Total Bilirubin 0.4 (0.2-1.3) mg/dL AST 26 (17-59) U/L ALT 18 L D (21-72) U/L Alkaline Phosphatase 42 (38-126) U/L Total Protein 6.3 (6.3-8.3) g/dL Albumin 3.5 (3.5-5.0) g/dL Globulin 2.8 (2.2-3.9) gm/dL Albumin/Globulin Ratio 1.2 (1.0-2.1) Prostate Specific Ag 1.56 (0.00-4.0) ng/mL Free T4 0.91 (0.78-2.19) ng/dL TSH 3rd Generation 17.30 H (0.46-4.68) mIU/L U Random Total Protein (22-128) mg/g creat 07/19/18 07/18/18 07/18/18 Range/Units 06:06 19:14 19:14 WBC 7.6 7.7 (4.8-10.8) K/uL RBC 2.98 L 3.18 L (4.40-5.90) Mil/uL Hgb 8.2 L 8.4 L (12.0-18.0) g/dL Hct 24.3 L 25.9 L (35.0-51.0) % MCV 81.4 81.4 (80.0-94.0) fL MCH 27.6 26.5 L (27.0-31.0) pg MCHC 33.9 32.6 L (33.0-37.0) g/dL RDW 16.3 H 16.0 H (11.5-14.5) % Plt Count 245 264 (130-400) K/uL MPV 8.2 8.7 (7.2-11.7) fL Neut % (Auto) 64.8 70.6 (50.0-75.0) % Lymph % (Auto) 21.2 16.6 L (20.0-40.0) % [place] % (Auto) 13.1 H 12.0 H (0.0-10.0) % Eos % (Auto) 0.4 0.3 (0.0-4.0) % Baso % (Auto) 0.5 0.5 (0.0-2.0) % Neut # (Auto) 4.9 5.4 (1.8-7.0) K/uL Lymph # (Auto) 1.6 1.3 (1.0-4.3) K/uL [place] # (Auto) 1.0 H 0.9 H (0.0-0.8) K/uL Eos # (Auto) 0.0 0.0 (0.0-0.7) K/uL Baso # (Auto) 0.0 0.0 (0.0-0.2) K/uL Sodium 133 (132-148) mmol/L Potassium 5.1 (3.6-5.2) mmol/L Chloride 102 (98-107) mmol/L Carbon Dioxide 23 (22-30) mmol/L Anion Gap 13 (10-20) BUN 29 H (9-20) mg/dL Creatinine 1.6 H (0.8-1.5) mg/dL Est GFR ( Amer) 50 Est GFR (Non-Af Amer) 41 Random Glucose 166 H D (75-110) mg/dL Calcium 9.1 (8.6-10.4) mg/dl Phosphorus 4.7 H (2.5-4.5) mg/dL Magnesium 1.8 (1.6-2.3) mg/dL Total Bilirubin 0.2 (0.2-1.3) mg/dL AST 24 (17-59) U/L ALT 27 (21-72) U/L Alkaline Phosphatase 50 (38-126) U/L Total Protein 6.6 (6.3-8.3) g/dL Albumin 3.8 (3.5-5.0) g/dL Globulin 2.8 (2.2-3.9) gm/dL Albumin/Globulin Ratio 1.4 (1.0-2.1) Prostate Specific Ag (0.00-4.0) ng/mL Free T4 (0.78-2.19) ng/dL TSH 3rd Generation (0.46-4.68) mIU/L U Random Total Protein (22-128) mg/g creat 07/18/18 Range/Units 14:30 WBC (4.8-10.8) K/uL RBC (4.40-5.90) Mil/uL Hgb (12.0-18.0) g/dL Hct (35.0-51.0) % MCV (80.0-94.0) fL MCH (27.0-31.0) pg MCHC (33.0-37.0) g/dL RDW (11.5-14.5) % Plt Count (130-400) K/uL MPV (7.2-11.7) fL Neut % (Auto) (50.0-75.0) % Lymph % (Auto) (20.0-40.0) % [place] % (Auto) (0.0-10.0) % Eos % (Auto) (0.0-4.0) % Baso % (Auto) (0.0-2.0) % Neut # (Auto) (1.8-7.0) K/uL Lymph # (Auto) (1.0-4.3) K/uL [place] # (Auto) (0.0-0.8) K/uL Eos # (Auto) (0.0-0.7) K/uL Baso # (Auto) (0.0-0.2) K/uL Sodium (132-148) mmol/L Potassium (3.6-5.2) mmol/L Chloride (98-107) mmol/L Carbon Dioxide (22-30) mmol/L Anion Gap (10-20) BUN (9-20) mg/dL Creatinine (0.8-1.5) mg/dL Est GFR ( Amer) Est GFR (Non-Af Amer) Random Glucose (75-110) mg/dL Calcium (8.6-10.4) mg/dl Phosphorus (2.5-4.5) mg/dL Magnesium (1.6-2.3) mg/dL Total Bilirubin (0.2-1.3) mg/dL AST (17-59) U/L ALT (21-72) U/L Alkaline Phosphatase (38-126) U/L Total Protein (6.3-8.3) g/dL Albumin (3.5-5.0) g/dL Globulin (2.2-3.9) gm/dL Albumin/Globulin Ratio (1.0-2.1) Prostate Specific Ag (0.00-4.0) ng/mL Free T4 (0.78-2.19) ng/dL TSH 3rd Generation (0.46-4.68) mIU/L U Random Total Protein 1198 H (22-128) mg/g creat Laboratory Results - last 24 hr 07/18/18 07/18/18 07/18/18 14:30 19:14 19:14 WBC 7.7 RBC 3.18 L Hgb 8.4 L Hct 25.9 L MCV 81.4 MCH 26.5 L MCHC 32.6 L RDW 16.0 H Plt Count 264 MPV 8.7 Neut % (Auto) 70.6 Lymph % (Auto) 16.6 L [place] % (Auto) 12.0 H Eos % (Auto) 0.3 Baso % (Auto) 0.5 Neut # (Auto) 5.4 Lymph # (Auto) 1.3 [place] # (Auto) 0.9 H Eos # (Auto) 0.0 Baso # (Auto) 0.0 Sodium 133 Potassium 5.1 Chloride 102 Carbon Dioxide 23 Anion Gap 13 BUN 29 H Creatinine 1.6 H Est GFR ( Amer) 50 Est GFR (Non-Af Amer) 41 Random Glucose 166 H D Calcium 9.1 Phosphorus 4.7 H Magnesium 1.8 Total Bilirubin 0.2 AST 24 ALT 27 Alkaline Phosphatase 50 Total Protein 6.6 Albumin 3.8 Globulin 2.8 Albumin/Globulin Ratio 1.4 Prostate Specific Ag Free T4 TSH 3rd Generation U Random Total Protein 1198 H 07/19/18 07/19/18 07/19/18 06:06 06:06 09:02 WBC 7.6 RBC 2.98 L Hgb 8.2 L Hct 24.3 L MCV 81.4 MCH 27.6 MCHC 33.9 RDW 16.3 H Plt Count 245 MPV 8.2 Neut % (Auto) 64.8 Lymph % (Auto) 21.2 [place] % (Auto) 13.1 H Eos % (Auto) 0.4 Baso % (Auto) 0.5 Neut # (Auto) 4.9 Lymph # (Auto) 1.6 [place] # (Auto) 1.0 H Eos # (Auto) 0.0 Baso # (Auto) 0.0 Sodium 136 Potassium 4.8 Chloride 107 Carbon Dioxide 22 Anion Gap 13 BUN 23 H Creatinine 1.2 Est GFR ( Amer) > 60 Est GFR (Non-Af Amer) 58 Random Glucose 107 D Calcium 9.1 Phosphorus 4.0 Magnesium 1.8 Total Bilirubin 0.4 AST 26 ALT 18 L D Alkaline Phosphatase 42 Total Protein 6.3 Albumin 3.5 Globulin 2.8 Albumin/Globulin Ratio 1.2 Prostate Specific Ag 1.56 Free T4 TSH 3rd Generation 17.30 H U Random Total Protein 07/19/18 09:02 WBC RBC Hgb Hct MCV MCH MCHC RDW Plt Count MPV Neut % (Auto) Lymph % (Auto) [place] % (Auto) Eos % (Auto) Baso % (Auto) Neut # (Auto) Lymph # (Auto) [place] # (Auto) Eos # (Auto) Baso # (Auto) Sodium Potassium Chloride Carbon Dioxide Anion Gap BUN Creatinine Est GFR ( Amer) Est GFR (Non-Af Amer) Random Glucose Calcium Phosphorus Magnesium Total Bilirubin AST ALT Alkaline Phosphatase Total Protein Albumin Globulin Albumin/Globulin Ratio Prostate Specific Ag Free T4 0.91 TSH 3rd Generation U Random Total Protein Radiology Impressions: Radiology Impressions Carotid Doppler Study 07/16/18 20:12 IMPRESSION: Duplex scan does not suggest hemodynamically significant stenosis of bilateral extracranial carotid arteries. Tortuosity noted of bilateral ICA. Critical Care Progress Note - Nutrition Nutrition: Nutrition Category Date Time Status Heart Healthy Diet [DIET] Diets 07/19/18 Lunch Active NPO Diet [DIET] Diets 07/20/18 Breakfast Active Attending/Attestation - Attestation I have personally seen and examined this patient.: Yes I have fully participated in the care of the patient.: Yes I have reviewed all pertinent clinical information: Yes Notes (Text): 07/19/18 16:55 I have seen and examined the patient. Medical records, lab studies, and imaging were reviewed by me and a management plan was formulated on multidisciplinary rounds with resident Dr. Vegas. I agree with their documented assessment and plan. Patient is pending colonoscopy for recent melanotic stool. On levothyroxine for hypothyroidism with monitoring for improvment in heart block. Patient will need outpatient followup for possible need for PPM, which can only be evaluated once hypothyroidism is adequately treated, which will take weeks to get therapeutic levels of levothyroxine. Blood pressure management with norvasc, doxazosin, and losartan; titrating nitro drip off. Critical Care Time 35 minutes. Multi-disciplinary rounds were performed with house staff, nursing, speech therapy, respiratory therapy, pharmacy and nutrition with integrated input from the primary team/attending and other consulting services. The documented time is cumulative and includes review of patient data/exams/labs/chart review and ex amination of the patient on rounds and throughout the day; time is exclusive of any procedures or teaching time.
[2018-07-19] MEDS: Nitroglycerin 50mg in D5W 50 MG/250 ML BOTTLE IV SCH (17:00)
--- NOTE | 2018-07-19 19:32 | PN ---
DATE: 07/19/2018 SUBJECTIVE: The patient denies any dizziness or chest pain, and he is still experiencing some degree of hematuria. PHYSICAL EXAMINATION: VITAL SIGNS: Blood pressure 179/73, heart rate 59, temperature 98.4, respirations 17. HEENT: Pale conjunctivae. CHEST: Clear. HEART: S1 and S2, regular. EXTREMITIES: Trace leg edema. LABORATORY DATA: Today's hemoglobin and hematocrit 8.2 and 24.3. White count and platelet count are within normal limits. Today's SMA-7 is within normal limits except for BUN of 23. Repeat TSH level today is 17.3. ASSESSMENT: 1. Improving symptomatic bradycardia and Mobitz I second-degree atrioventricular block. 2. Bladder neck obstruction, status post Campoverde catheter insertion, and the patient was found earlier to have severe bilateral hydronephrosis. 3. Improving renal insufficiency. Today's BUN and creatinine are about 23 and 1.2 respectively. 4. Hypothyroidism. RECOMMENDATIONS: The case was discussed with Dr. Tucker, the detective automobile section. The patient was started on minoxidil 2.5 mg daily and Cozaar 50 mg once a day. I did start Norvasc 5 mg once a day, Cardura at 1 mg once a day. Continue Synthroid 25 mcg once a day. The patient's CA 19-9 antigen is elevated at 64.7. I will obtain a PSA level, and I did recommend Urology evaluation. 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 Darin Estes MD
[2018-07-20] MEDS: Levothyroxine 25 MCG TAB PO SCH (05:44)
[2018-07-20 06:28] LABS: BASO % 0.2 % (0.0-2.0); EOS % 0.1 % (0.0-4.0); HEMOGLOBIN 8.4 g/dL (12.0-18.0); LYMPH # 0.6 K/uL (1.0-4.3); LYMPH % 6.3 % (20.0-40.0); MEAN CELL VOLUME 81.2 fL (80.0-94.0); MEAN CORPUSCULAR HEMOGLOBIN 26.8 pg (27.0-31.0); MEAN CORPUSCULAR HGB CONC 33.1 g/dL (33.0-37.0); MONO # 0.9 K/uL (0.0-0.8); MONO % 8.9 % (0.0-10.0); NEUT # 8.1 K/uL (1.8-7.0); NEUT % 84.5 % (50.0-75.0); PLATELET COUNT 239 K/uL (130-400); RBC 3.12 Mil/uL (4.40-5.90); RED CELL DISTRIBUTION WIDTH 16.7 % (11.5-14.5); WHITE BLOOD COUNT 9.6 K/uL (4.8-10.8)
[2018-07-20 06:45] LABS: ALB/GLOB RATIO 1.4 (1.0-2.1); ALBUMIN 3.5 g/dL (3.5-5.0); ALT/SGPT 16 U/L (21-72); AST/SGOT 31 U/L (17-59); BLOOD UREA NITROGEN 21 mg/dL (9-20); CALCIUM 8.5 mg/dl (8.6-10.4); GFR NON-AFRICAN AMERICAN 58
--- NOTE | 2018-07-20 07:57 | CON ---
DATE: 07/16/2018 LOCATION: ICU 12. That is from Dr. Shakila Dubose to Dr. Nitin Acuna. I was called for GI consultation by the admitting medical team. The patient is seen and fully examined on 07/16/[address] Steven Acuna. A short handwritten consultation sheet left in the chart at the time of my physical examination and GI consultation on 07/16/2018. Case discussed with the staff in the intensive care unit as well as the admitting medical team at length. HISTORY OF PRESENT ILLNESS: This is an 87-year-old male who was admitted to the hospital with recurrent episode of melena, shortness of breath, mild generalized weakness and malaise with intermittent periods of dizziness. On record, the patient admitted taking Pepto-Bismol, however, post admission to the hospital, it was found that the patient has low hemoglobin and hematocrit. The patient also had been complaining of abdominal pain. Postprandial abdominal distention with mild generalized nausea and dyspepsia. No reported actual chest pain, palpitation, significant increase of shortness of breath. PAST MEDICAL HISTORY: Including mainly but not limited to hypertension and peptic ulcer disease, anemia. FAMILY HISTORY: Unknown. SOCIAL HISTORY: Positive for alcohol intake but no reported recent history of cigarette smoking or drug abuse. CURRENT MEDICATIONS: Post admission medication lists were reviewed. ALLERGIES TO MEDICATIONS: UNKNOWN. LABORATORY DATA: Initial blood workup showed hemoglobin 9.1, hematocrit 26.9 with low indices but normal white blood cells and platelet count, PTT was 43. Sodium 130, potassium 6.1, CO2 content of 20 indicative of metabolic acidosis, BUN of 24 with normal creatinine 1.4 with normal liver function test in general. CAT scan of the abdomen and pelvis at the time of the admission showed evidence of chronic bladder outlet obstruction with severe bladder distention with severe bilateral hydronephrosis as per records. PHYSICAL EXAMINATION: GENERAL: An 87-year-old male, appears to be awake, alert, complaining of mild generalized weakness with dyspepsia on and off. VITAL SIGNS: Afebrile at the time of my physical examination with heart rate of 58, respiratory rate 20 to 22, blood pressure of 160/64. HEENT: Showed pale, dry oral mucoid membrane. Nonicteric sclerae. LUNGS: Few scattered crepitation. Decreased air entry at bases. HEART: Positive S1 and S2 with low rate. ABDOMEN: Soft with mild generalized tenderness. No mass or organomegaly. No rebound tenderness or guarding. EXTREMITIES: Mild lower extremity edematous changes. No clubbing or cyanosis. NEUROLOGIC: No reported new neurological deficits, sensory or motor. IMPRESSION: 1. Severe anemia of unclear etiology with melena to rule out upper versus lower gastrointestinal blood loss. 2. Bradycardia by recent history. 3. To rule out occult gastrointestinal malignancy. 4. Abnormal CAT scan of the abdomen and pelvis. 5. Hypertension by history. 6. Electrolyte imbalance, with hyperkalemia, hyponatremia with metabolic acidosis. 7. Prerenal azotemia with dehydration. 8. Possible renal stone with urinary tract infection by recent history. SUGGESTIONS: 1. Agree with your plan. 2. Cancer markers. 3. Guaiac all the stools daily x3. Proton pump inhibitors IV. Rehydration. 4. Nephrology consultation. 5. The patient will need endoscopic evaluation, especially of the upper GI tract due to his anemia and episodes of melena before. 6. Further recommendation to follow. Thank you for letting me participate in your patient's case management. Shakila Dubose MD
[2018-07-20 08:38] LABS: BANDS 2 % (0-2); LYMPHOCYTE 6 % (20-40); MONOCYTE 11 % (0-10); NEUTROPHIL 81 % (50-75); PLATELET ESTIMATE NORMAL (NORMAL); TOTAL CELLS COUNTED 100
[2018-07-20 08:39] LABS: ANISOCYTOSIS SLIGHT; HYPOCHROMIC SLIGHT
--- NOTE | 2018-07-20 08:48 | CP.PCM.PN ---
Subjective - Date & Time of Evaluation Date of Evaluation: 07/20/18 Time of Evaluation: 07:15 - Subjective Subjective: Nephro Consult Note for Dr. Tucker Service Cody Segura DO, PGY-3 Patient seen and examined at bedside in the ICU. Reports feeling considerably better today. HR irregular but in 60's on bedside monitor at time of exam, and BP more controlled, still on Nitro drip. Put out approx 3L urine yesterday through terrell, urine clear in bag this AM. Denies any acute complaints today, resting comfortably in bed. Objective - Vital Signs/Intake and Output Vital Signs (last 24 hours): Temp Pulse Resp BP Pulse Ox 98.7 F 71 10 L 152/65 H 96 07/20/18 04:00 07/20/18 07:49 07/20/18 07:49 07/20/18 07:49 07/20/18 07:49 Intake and Output: 07/20/18 07/20/18 06:59 18:59 Intake Total 1316 Output Total 1360 Balance -44 - Medications Medications: Current Medications Acetaminophen (Tylenol 325mg Tab) 650 mg PO Q6 PRN PRN Reason: Pain, moderate (4-7) Last Admin: 07/17/18 22:33 Dose: 650 mg Amlodipine Besylate (Norvasc) 5 mg PO DAILY [facility] Last Admin: 07/19/18 13:46 Dose: 5 mg Aspirin (Aspirin Chewable) 81 mg PO DAILY [facility] Last Admin: 07/19/18 09:57 Dose: 81 mg Doxazosin Mesylate (Cardura) 1 mg PO DAILY [facility] Last Admin: 07/19/18 13:46 Dose: 1 mg Finasteride (Proscar) 5 mg PO DAILY [facility] Last Admin: 07/19/18 09:57 Dose: 5 mg Nitroglycerin/Dextrose (Nitroglycerin 50 Mg/250 Ml D5w) 50 mg in 250 mls @ 1.5 mls/hr IV .Q24H [facility]; Protocol Last Titration: 07/20/18 04:00 Dose: 0 mcg/min, 0 mls/hr Sodium Chloride (Sodium Chloride 0.45%) 1,000 mls @ 80 mls/hr IV .[id number] [facility] Last Admin: 07/19/18 20:41 Dose: 80 mls/hr Ketorolac Tromethamine (Toradol) 30 mg IVP Q6 [facility] Last Admin: 07/20/18 05:45 Dose: 30 mg Levothyroxine Sodium (Synthroid) 25 mcg PO DAILY@0630 [facility] Last Admin: 07/20/18 05:44 Dose: 25 mcg Losartan Potassium (Cozaar) 50 mg PO DAILY [facility] Last Admin: 07/19/18 09:57 Dose: 50 mg Minoxidil (Minoxidil) 2.5 mg PO DAILY [facility] Last Admin: 07/19/18 13:43 Dose: Not Given Pantoprazole Sodium (Protonix Ec Tab) 40 mg PO DAILY [facility] Last Admin: 07/19/18 09:58 Dose: 40 mg Sitagliptin Phosphate (Januvia) 100 mg PO DAILY [facility] Last Admin: 07/19/18 14:02 Dose: 100 mg Tamsulosin HCl (Flomax) 0.4 mg PO DAILY [facility] Last Admin: 07/19/18 09:57 Dose: 0.4 mg - Labs Labs: 07/20/18 06:14 07/20/18 06:14 PT 11.3 SECONDS (9.7-12.2) 07/16/18 15:59 INR 1.0 07/16/18 15:59 APTT 43 SECONDS (21-34) H 07/16/18 15:59 - Additional Findings Additional findings: - Constitutional Appears: Non-toxic, No Acute Distress - Head Exam Head Exam: ATRAUMATIC, NORMAL INSPECTION, NORMOCEPHALIC - Eye Exam Eye Exam: Normal appearance. absent: Conjunctival injection, Scleral icterus Pupil Exam: absent: Irregular, Unequal - ENT Exam ENT Exam: Mucous Membranes Moist - Neck Exam Neck exam: Negative for: Lymphadenopathy, Tenderness, Thyromegaly - Respiratory Exam Respiratory Exam: Clear to Auscultation Bilateral, NORMAL BREATHING PATTERN. absent: Accessory Muscle Use, Chest Wall Tenderness, Decreased Breath Sounds, Rales, Rhonchi, Wheezes - Cardiovascular Exam Cardiovascular Exam: Irregularly Irregular, +S1, +S2. absent: Tachycardia/Bradycardia, JVD, RRR - GI/Abdominal Exam GI & Abdominal Exam: Normal Bowel Sounds, Soft. absent: Diminished Bowel Sounds, Hyperactive Bowel Sounds, Hypoactive Bowel Sounds, Tenderness, Firm, Rigid - Terrell in place with clear urine - Extremities Exam Extremities exam: Positive for: normal inspection, pedal pulses present. Negati ve for: calf tenderness, pedal edema, tenderness - Back Exam Back exam: absent: CVA tenderness (L), CVA tenderness (R) - Neurological Exam awake and alert, following all commands appropriately, moving all extremities spontaneously - Psychiatric Exam Psychiatric exam: Normal Affect, Normal Mood - Skin Skin Exam: Dry, Intact, Normal Color, Warm Assessment and Plan - Assessment and Plan (Free Text) Assessment: This is an 87 yo M with PMH of HTN, DM, anemia, and hyperlipidemia who presented to the ED on 07/16/18 for evaluation of dyspnea and dizziness x1 week. Patient was admitted to the ICU for symptomatic hypertensive urgency/bradycardia in the setting of advanced heart block. Nephrology consulted for LILLIAM (Cr 1.5 on arrival, maxed at 1.7, was 1.1 during Jan 2018 ED visit) and persistent hyperkalemia. 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 2) HTN urgency - improved 3) LILLIAM 2/2 obstructive uropathy - improving 4) BPH, off medications 5) DM 6) Elevated TSH, Normal T4/Free T4 7) Persistent Hyperkalemia -LILLIAM and hyperkalemia 2/2 obstructive nephropathy - improving Cr remains 1.2, continue to monitor Restarted on Flomax and Finasteride added, continue to monitor Terrell in place for strict I's and O's, continue to allow bladder/renal decompression; currently has put ~8L TSH remains elevated, but T4/Free T4 wnl, subclinical hypothyroidism vs TSH elevated as acute phase reactant Hyperkalemia resolved, monitor closely in setting of underlying cardiac conduction abnormality -HTN urgency with BP 220's+ x1 week as outpatient, seen to have similar BP elevations during ED visit in Jan 2018 Continue Nitro drip for BP control, holding other BP meds due to heart block Can cut back on IVF, decreased to 50cc/hr -Advanced heart block, EP consulted, appreciate their recs Pending possible pacer Hold all antiarrhythmics given bradycardia and advanced block Patient discussed and reviewed with attending, Dr. Tucker
[2018-07-20] MEDS ORDERED: Lactated Ringer's 1,000 ML IV ONE (11:25)
[2018-07-20] MEDS ORDERED: Propofol 10 mg/ml Inj (20 ML) ONE (11:31)
[2018-07-20] MEDS ORDERED: Lactated Ringer's 500 ML IV ONE ×2 (11:55)
[2018-07-20] MEDS: Pantoprazole 40 mg EC Tab PO SCH (12:48)
[2018-07-20] MEDS: Sodium Chloride 0.45% 1,000 ML IV SCH (12:48)
[2018-07-20] MEDS ORDERED: Enalaprilat 2.5 MG/2 ML IV ONE (18:05)
--- NOTE | 2018-07-20 18:07 | CP.PCM.PN ---
Subjective - Date & Time of Evaluation Date of Evaluation: 07/20/18 - Subjective Subjective: patient seen today no nausea no vomiting no diarrhea no fever no dizziness no shortness of breath Objective - Vital Signs/Intake and Output Vital Signs (last 24 hours): Temp Pulse Resp BP Pulse Ox 98.0 F 80 16 174/73 H 97 07/20/18 16:00 07/20/18 16:00 07/20/18 16:00 07/20/18 16:17 07/20/18 16:00 Intake and Output: 07/20/18 07/20/18 06:59 18:59 Intake Total 1316 720 Output Total 1360 5637 Balance -44 -1157 - Medications Medications: Current Medications Acetaminophen (Tylenol 325mg Tab) 650 mg PO Q6 PRN PRN Reason: Pain, moderate (4-7) Last Admin: 07/17/18 22:33 Dose: 650 mg Amlodipine Besylate (Norvasc) 10 mg PO DAILY [facility] Aspirin (Aspirin Chewable) 81 mg PO DAILY [facility] Last Admin: 07/20/18 12:46 Dose: 81 mg Doxazosin Mesylate (Cardura) 1 mg PO DAILY [facility] Last Admin: 07/20/18 09:34 Dose: 1 mg Enalaprilat (Vasotec) 2.5 mg IV ONCE ONE Stop: 07/20/18 18:06 Finasteride (Proscar) 5 mg PO DAILY [facility] Last Admin: 07/20/18 12:47 Dose: 5 mg Nitroglycerin/Dextrose (Nitroglycerin 50 Mg/250 Ml D5w) 50 mg in 250 mls @ 1.5 mls/hr IV .Q24H [facility]; Protocol Last Titration: 07/20/18 04:00 Dose: 0 mcg/min, 0 mls/hr Sodium Chloride (Sodium Chloride 0.45%) 1,000 mls @ 80 mls/hr IV .[id number] [facility] Last Admin: 07/20/18 12:48 Dose: 80 mls/hr Levothyroxine Sodium (Synthroid) 25 mcg PO DAILY@0630 [facility] Last Admin: 07/20/18 05:44 Dose: 25 mcg Losartan Potassium (Cozaar) 100 mg PO DAILY [facility] Pantoprazole Sodium (Protonix Ec Tab) 40 mg PO DAILY [facility] Last Admin: 07/20/18 12:48 Dose: 40 mg Sitagliptin Phosphate (Januvia) 100 mg PO DAILY [facility] Last Admin: 07/20/18 12:47 Dose: 100 mg Sucralfate (Carafate Oral Susp) 1 gm PO [facility] Tamsulosin HCl (Flomax) 0.4 mg PO DAILY [facility] Last Admin: 07/20/18 12:47 Dose: 0.4 mg - Labs Labs: 07/20/18 06:14 07/20/18 06:14 PT 11.3 SECONDS (9.7-12.2) 07/16/18 15:59 INR 1.0 07/16/18 15:59 APTT 43 SECONDS (21-34) H 07/16/18 15:59 - Constitutional Appears: Well - Head Exam Head Exam: ATRAUMATIC, NORMAL INSPECTION, NORMOCEPHALIC - Eye Exam Eye Exam: EOMI, Normal appearance, PERRL Pupil Exam: NORMAL ACCOMODATION, PERRL - ENT Exam ENT Exam: Mucous Membranes Moist, Normal Exam - Neck Exam Neck Exam: Full ROM, Normal Inspection. absent: Lymphadenopathy - Respiratory Exam Respiratory Exam: Decreased Breath Sounds - Cardiovascular Exam Cardiovascular Exam: REGULAR RHYTHM, +S1, +S2 - GI/Abdominal Exam GI & Abdominal Exam: Soft, Diminished Bowel Sounds - Rectal Exam Rectal Exam: Deferred - Neurological Exam Neurological Exam: Oriented x3 Assessment and Plan - Assessment and Plan (Free Text) Plan: labs reviewed medications reviewed vitals reviewed aspirin chewable carafate oral susp elyseura alexander cozaar ferrlecit flomax hygroton januvia mag-ox minoxidil norvasc proscar protonix ec tab synthroid tylenol 325mg tab
[2018-07-20] MEDS: Nitroglycerin 50mg in D5W 50 MG/250 ML BOTTLE IV SCH (18:35)
--- NOTE | 2018-07-20 19:34 | PN ---
DATE: 07/20/2018 SUBJECTIVE: The patient underwent upper endoscopy. I saw the patient in the recovery room, he was fully alert, awake and oriented, and he has no chest pain and no reported significant bradycardia. The findings of EGD are medium-sized hiatus hernia, gastritis, multiple gastric polyps resected and retrieved. Normal examined duodenum. PHYSICAL EXAMINATION: VITAL SIGNS: Blood pressure 166/75, heart rate 83, temperature 97.8, respirations 20. HEENT: Pale conjunctivae. CHEST: Clear. HEART: S1 and S2, regular. EXTREMITIES: No edema. LABORATORY DATA: Today's SMA-7 is within normal limits except for glucose of 155 and BUN of 21 and calcium slightly below normal at 8.5. ASSESSMENT: 1. Improved symptomatic bradycardia. 2. Obstructive uropathy and bilateral hydronephrosis are improving. 3. Hypothyroidism. 4. Gastric polyps. 5. Hypertension. RECOMMENDATIONS: Continue aspirin at 81 mg once a day, Cardura mg daily, Cozaar at 100 mg daily, Norvasc 10 mg once a day, Synthroid 25 mcg once a day. The patient can be transferred to telemetry from the cardiac point of view, and can undergo colonoscopy. Darin Estes MD
[2018-07-20 19:40] VITALS: RESP 20
[2018-07-20] MEDS: Sucralfate 1 gm/10 ml Oral Susp UD PO SCH (21:38)
[2018-07-21] MEDS: Levothyroxine 25 MCG TAB PO SCH (06:32)
[2018-07-21] MEDS: Sucralfate 1 gm/10 ml Oral Susp UD PO SCH ×2 (06:32→21:26)
[2018-07-21 07:22] LABS: IRON 13 ug/dL (49-181)
[2018-07-21 07:27] LABS: ALB/GLOB RATIO 1.2 (1.0-2.1); ALBUMIN 3.4 g/dL (3.5-5.0); ALT/SGPT 21 U/L (21-72); AST/SGOT 28 U/L (17-59); BLOOD UREA NITROGEN 15 mg/dL (9-20); GFR NON-AFRICAN AMERICAN > 60
[2018-07-21 07:28] LABS: BASO % 0.3 % (0.0-2.0); EOS # 0.1 K/uL (0.0-0.7); EOS % 1.2 % (0.0-4.0); HEMOGLOBIN 9.1 g/dL (12.0-18.0); LYMPH # 1.5 K/uL (1.0-4.3); LYMPH % 18.9 % (20.0-40.0); MEAN CELL VOLUME 82.3 fL (80.0-94.0); MEAN CORPUSCULAR HEMOGLOBIN 28.1 pg (27.0-31.0); MEAN CORPUSCULAR HGB CONC 34.1 g/dL (33.0-37.0); MEAN PLATELET VOLUME 8.5 fL (7.2-11.7); MONO # 0.7 K/uL (0.0-0.8); MONO % 9.5 % (0.0-10.0); NEUT # 5.4 K/uL (1.8-7.0); NEUT % 70.1 % (50.0-75.0); NRBC % 0.1 % (0.0-2.0); RBC 3.24 Mil/uL (4.40-5.90); WHITE BLOOD COUNT 7.8 K/uL (4.8-10.8)
[2018-07-21 07:32] LABS: % IRON SATURATION 4 (20-55); TOTAL IRON BINDING CAPACITY 291 ug/dL (250-450)
[2018-07-21] MEDS: Pantoprazole 40 mg EC Tab PO SCH (09:13)
--- NOTE | 2018-07-21 10:06 | PN ---
DATE: 07/21/2018 LOCATION: 660, bed A. SUBJECTIVE: This is an 87-year-old male, post upper endoscopy, seen and examined in rounds post out of the intensive care unit without any significant clinical changes or reported active bleeding. The entire chart is reviewed including but not limited to the most recent lab and radiology study results, current and the previous medication list. Today's lab results showed hemoglobin 9.1, hematocrit 26.7 with normal white blood cells and platelet count, blood glucose level 120 with decreased iron and decreased iron saturation. Total protein 6.1, albumin 3.4. PHYSICAL EXAMINATION: GENERAL: An 87-year-old male, awake, alert, oriented. VITAL SIGNS: Afebrile with pulse of 80, respiratory rate 20 to 22, blood pressure of 168/78. HEENT: Showed pale, dry mucous membrane. Nonicteric sclerae. LUNGS: Few scattered crepitation. Decreased air entry at bases. HEART: Positive S1 and S2. ABDOMEN: Soft with mild generalized tenderness. No mass or organomegaly. No rebound tenderness or guarding. EXTREMITIES: Without significant clubbing, cyanosis or edema. NEUROLOGIC: No reported new neurological deficits, sensory or motor. IMPRESSION: 1. Peptic ulcer disease with multiple small gastric polyps with ulceration, pathology report is still pending. 2. Obstructive uropathy, most likely. 3. Known history of hypothyroidism, hypertension. 4. Anemia, most likely secondary to above. SUGGESTION: 1. Agree with your plan. 2. The patient may need colonoscopy when he is more stable and when his bradycardia is well controlled. We will discuss the case with the business sales consultant. 3. Further recommendation to follow. Shakila Dubose MD
[2018-07-21] MEDS: Ferric Sodium Gluconat Complex 62.5 mg/5 ml Vial IVPB SCH (11:44)
--- NOTE | 2018-07-21 11:54 | CP.PCM.PN ---
Subjective - Date & Time of Evaluation Date of Evaluation: 07/21/18 Time of Evaluation: 11:51 Objective - Vital Signs/Intake and Output Vital Signs (last 24 hours): Temp Pulse Resp BP Pulse Ox 99.1 F 86 20 188/80 H 97 07/21/18 07:00 07/21/18 07:00 07/21/18 07:00 07/21/18 07:00 07/21/18 07:00 - Medications Medications: Current Medications Acetaminophen (Tylenol 325mg Tab) 650 mg PO Q6 PRN PRN Reason: Pain, moderate (4-7) Last Admin: 07/17/18 22:33 Dose: 650 mg Amlodipine Besylate (Norvasc) 10 mg PO DAILY [facility] Last Admin: 07/21/18 09:19 Dose: 10 mg Aspirin (Aspirin Chewable) 81 mg PO DAILY [facility] Last Admin: 07/21/18 09:13 Dose: 81 mg Doxazosin Mesylate (Cardura) 1 mg PO DAILY [facility] Last Admin: 07/21/18 09:13 Dose: 1 mg Ferric Sodium Gluconate Complex (Ferrlecit) 125 mg IVPB DAILY [facility] Stop: 07/29/18 11:01 Last Admin: 07/21/18 11:44 Dose: 125 mg Finasteride (Proscar) 5 mg PO DAILY [facility] Last Admin: 07/21/18 09:13 Dose: 5 mg Levothyroxine Sodium (Synthroid) 25 mcg PO DAILY@0630 [facility] Last Admin: 07/21/18 06:32 Dose: 25 mcg Losartan Potassium (Cozaar) 100 mg PO DAILY [facility] Last Admin: 07/21/18 09:19 Dose: 100 mg Minoxidil (Minoxidil) 2.5 mg PO BID [facility] Last Admin: 07/21/18 11:43 Dose: 2.5 mg Pantoprazole Sodium (Protonix Ec Tab) 40 mg PO DAILY [facility] Last Admin: 07/21/18 09:13 Dose: 40 mg Sitagliptin Phosphate (Januvia) 100 mg PO DAILY [facility] Last Admin: 07/21/18 09:13 Dose: 100 mg Sucralfate (Carafate Oral Susp) 1 gm PO [facility] Last Admin: 07/21/18 06:32 Dose: 1 gm Tamsulosin HCl (Flomax) 0.4 mg PO DAILY [facility] Last Admin: 07/21/18 09:13 Dose: 0.4 mg - Labs Labs: 07/21/18 07:02 07/21/18 07:02 PT 11.3 SECONDS (9.7-12.2) 07/16/18 15:59 INR 1.0 07/16/18 15:59 APTT 43 SECONDS (21-34) H 07/16/18 15:59 Assessment and Plan (1) Obstructive uropathy Assessment & Plan: Renal function at baseline; failed voiding trial; will re-insert terrell and patient should be sent with leg bag on d/c, needs outpatient urology f/u; continue flomax and finasteride; Status: Acute (2) Anemia Assessment & Plan: Iron deficiency in the setting of gastric ulcers; f/u with GI regarding path; continue IV iron loading; Status: Acute (3) Hypertension Assessment & Plan: BP still elevated; restarting minoxidil 2.5 mg bid; continue rest of meds; Status: Acute
[2018-07-21 17:07] LABS: ALDO/PRA RATIO 17.4 Ratio (0.9-28.9)
[2018-07-21 17:41] LABS: URINE BILIRUBIN NEGATIVE (NEGATIVE); URINE BLOOD 2+ (NEGATIVE); URINE CLARITY Hazy (Clear); URINE COLOR Yellow (YELLOW); URINE GLUCOSE (UA) NORMAL (Normal); URINE LEUKOCYTE ESTERASE TRACE Leu/uL (Negative); URINE PROTEIN 2+ mg/dL (NEGATIVE); URINE UROBILINOGEN NORMAL mg/dL (0.2-1.0)
--- NOTE | 2018-07-21 17:41 | PN ---
DATE: 07/21/2018 SUBJECTIVE: The patient denies any nausea, vomiting, or diarrhea. He still has mild hematuria. He denies any dizziness. PHYSICAL EXAMINATION: VITAL SIGNS: Blood pressure 188/80, heart rate 81, temperature 99.1, respirations 20. HEENT: Pale conjunctivae. CHEST: Clear. HEART: S1 and S2. Regular. ABDOMEN: Soft. EXTREMITIES: No edema. LABORATORY DATA: Today's SMA-7 is within normal limits except for glucose of 120. Iron level is below normal at 13 and percent iron saturation is below normal at 4. Today's hemoglobin and hematocrit are 9.1 and 26.7. White count and platelet count are within normal limits. Official report for carotid Doppler does not suggest hemodynamically significant stenosis of the bilateral extracranial carotid arteries. ASSESSMENT: 1. Status post symptomatic bradycardia. 2. Bladder neck obstruction with bilateral hydronephrosis. The patient required an indwelling Campoverde catheter. 3. Hypertension. 4. Mild anemia. 5. Gastric polyps. 6. Hypothyroidism. RECOMMENDATIONS: Continue aspirin 81 mg once a day, Cardura at 1 mg daily, Cozaar at 100 mg once a day, Ferrlecit infusion at 125 mg daily, continue minoxidil 2.5 mg twice a day, and Norvasc 10 mg once a day. Continue Synthroid 25 mcg once a day. Darin Estes MD
--- NOTE | 2018-07-21 19:29 | CP.PCM.PN ---
Subjective - Date & Time of Evaluation Date of Evaluation: 07/21/18 - Subjective Subjective: patient seen and examined today at bedside no nausea no vomiting no dizziness no fever no diarrhea no shortness of breath Objective - Vital Signs/Intake and Output Vital Signs (last 24 hours): Temp Pulse Resp BP Pulse Ox 98.9 F 88 20 177/74 H 100 07/21/18 15:00 07/21/18 17:31 07/21/18 15:00 07/21/18 17:31 07/21/18 16:02 Intake and Output: 07/21/18 07/22/18 18:59 06:59 Intake Total 500 Output Total 1100 Balance -600 - Medications Medications: Current Medications Acetaminophen (Tylenol 325mg Tab) 650 mg PO Q6 PRN PRN Reason: Pain, moderate (4-7) Last Admin: 07/17/18 22:33 Dose: 650 mg Amlodipine Besylate (Norvasc) 10 mg PO DAILY [facility] Last Admin: 07/21/18 09:19 Dose: 10 mg Aspirin (Aspirin Chewable) 81 mg PO DAILY [facility] Last Admin: 07/21/18 09:13 Dose: 81 mg Doxazosin Mesylate (Cardura) 1 mg PO DAILY [facility] Last Admin: 07/21/18 09:13 Dose: 1 mg Ferric Sodium Gluconate Complex (Ferrlecit) 125 mg IVPB DAILY [facility] Stop: 07/29/18 11:01 Last Admin: 07/21/18 11:44 Dose: 125 mg Finasteride (Proscar) 5 mg PO DAILY [facility] Last Admin: 07/21/18 09:13 Dose: 5 mg Levothyroxine Sodium (Synthroid) 25 mcg PO DAILY@0630 [facility] Last Admin: 07/21/18 06:32 Dose: 25 mcg Losartan Potassium (Cozaar) 100 mg PO DAILY [facility] Last Admin: 07/21/18 09:19 Dose: 100 mg Minoxidil (Minoxidil) 2.5 mg PO BID [facility] Last Admin: 07/21/18 17:30 Dose: 2.5 mg Pantoprazole Sodium (Protonix Ec Tab) 40 mg PO DAILY [facility] Last Admin: 07/21/18 09:13 Dose: 40 mg Sitagliptin Phosphate (Januvia) 100 mg PO DAILY [facility] Last Admin: 07/21/18 09:13 Dose: 100 mg Sucralfate (Carafate Oral Susp) 1 gm PO [facility] Last Admin: 07/21/18 06:32 Dose: 1 gm Tamsulosin HCl (Flomax) 0.4 mg PO DAILY [facility] Last Admin: 07/21/18 09:13 Dose: 0.4 mg - Labs Labs: 07/21/18 07:02 07/21/18 07:02 PT 11.3 SECONDS (9.7-12.2) 07/16/18 15:59 INR 1.0 07/16/18 15:59 APTT 43 SECONDS (21-34) H 07/16/18 15:59 - Constitutional Appears: Well - Head Exam Head Exam: ATRAUMATIC, NORMAL INSPECTION, NORMOCEPHALIC - Eye Exam Eye Exam: EOMI, Normal appearance, PERRL Pupil Exam: NORMAL ACCOMODATION, PERRL - ENT Exam ENT Exam: Mucous Membranes Moist, Normal Exam - Neck Exam Neck Exam: Full ROM, Normal Inspection. absent: Lymphadenopathy - Respiratory Exam Respiratory Exam: Decreased Breath Sounds - Cardiovascular Exam Cardiovascular Exam: REGULAR RHYTHM, +S1, +S2 - GI/Abdominal Exam GI & Abdominal Exam: Soft, Diminished Bowel Sounds - Neurological Exam Neurological Exam: Oriented x3 Assessment and Plan - Assessment and Plan (Free Text) Plan: labs reviewed vitals reviewed medications reviewed aspirin chewable carafate oral susp cardura alphonsoro cozaar ferrlecit flomax hygroton januvia mag-ox minoxidil norvasc proscar protonix ec tab synthroid tylenol 325mg tab
[2018-07-22] MEDS: Levothyroxine 25 MCG TAB PO SCH (05:59)
[2018-07-22] MEDS: Sucralfate 1 gm/10 ml Oral Susp UD PO SCH ×2 (06:48→21:05)
[2018-07-22] MEDS: Ferric Sodium Gluconat Complex 62.5 mg/5 ml Vial IVPB SCH (09:01)
[2018-07-22 09:02] LABS: BASO % 0.5 % (0.0-2.0); EOS # 0.1 K/uL (0.0-0.7); EOS % 1.6 % (0.0-4.0); HEMOGLOBIN 9.5 g/dL (12.0-18.0); LYMPH # 1.3 K/uL (1.0-4.3); LYMPH % 19.9 % (20.0-40.0); MEAN CELL VOLUME 82.2 fL (80.0-94.0); MEAN CORPUSCULAR HEMOGLOBIN 27.2 pg (27.0-31.0); MEAN CORPUSCULAR HGB CONC 33.1 g/dL (33.0-37.0); MONO # 0.7 K/uL (0.0-0.8); MONO % 10.4 % (0.0-10.0); NEUT # 4.4 K/uL (1.8-7.0); NEUT % 67.6 % (50.0-75.0); RBC 3.5 Mil/uL (4.40-5.90); RED CELL DISTRIBUTION WIDTH 16.2 % (11.5-14.5); WHITE BLOOD COUNT 6.5 K/uL (4.8-10.8)
[2018-07-22] MEDS: Pantoprazole 40 mg EC Tab PO SCH (09:02)
[2018-07-22 09:31] LABS: ALB/GLOB RATIO 1.3 (1.0-2.1); ALBUMIN 3.6 g/dL (3.5-5.0); ALT/SGPT 18 U/L (21-72); AST/SGOT 20 U/L (17-59); BLOOD UREA NITROGEN 10 mg/dL (9-20); CALCIUM 9.2 mg/dl (8.6-10.4); GFR NON-AFRICAN AMERICAN > 60
--- NOTE | 2018-07-22 10:12 | PN ---
DATE: 07/22/2018 LOCATION: 660, bed A. SUBJECTIVE: This is an 87-year-old male, post upper endoscopy, seen and examined in rounds early today without significant clinical changes or reported active bleeding, somewhat tolerating oral intake well. As per the record, the patient still have evidence of urinary retention which was relieved by straight catheter recently. Denied any chest pain, palpitation, or significant shortness of breath. The most recent lab results yesterday showed hemoglobin 9.1, hematocrit 26.7 with increased blood glucose level 189 with low total protein and albumin. PHYSICAL EXAMINATION: GENERAL: An 87-year-old male awake, alert, oriented. VITAL SIGNS: Afebrile with pulse of 84, respiratory rate 20 to 22, blood pressure 170/74. HEENT: Showed pale, dry oral mucous membrane. Nonicteric sclerae. LUNGS: Few scattered crepitation. Breathing sounds are present bilaterally. HEART: Positive S1 and S2. ABDOMEN: Soft. Bowel sounds are present. No mass or organomegaly. No rebound tenderness or guarding. EXTREMITIES: Without edema, clubbing or cyanosis. NEUROLOGIC: No reported new neurological deficits, sensory or motor. IMPRESSION: 1. Re-exacerbation of peptic ulcer disease with multiple small gastric polyp with ulceration, still awaiting pathology report. 2. Evidence of obstructive uropathy. 3. History of hypertension, poorly controlled. 4. Known history of hypothyroidism. 5. Anemia, secondary to above. 6. To rule out occult gastrointestinal malignancy. SUGGESTIONS: 1. Continue current management. 2. Sectional abdominal and pelvic CAT scan to be reviewed again with the radiologist staff. 3. Consider colonoscopy only when the patient is more stable clinically and after complete Urology evaluation. Otherwise medical followup to follow with close observation. Shakila Dubose MD
[2018-07-22] MEDS: Magnesium Sulfate 1 gm in D5W 1 GM/100 ML BAG IVPB SCH ×2 (14:23→15:26)
--- NOTE | 2018-07-22 16:09 | CP.PCM.PN ---
Subjective - Date & Time of Evaluation Date of Evaluation: 07/22/18 - Subjective Subjective: patient was examined today no fever no nausea no diarrhea no shortness of breath no dizziness no vomiting Objective - Vital Signs/Intake and Output Vital Signs (last 24 hours): Temp Pulse Resp BP Pulse Ox 97.5 F L 94 H 20 168/74 H 98 07/22/18 15:00 07/22/18 15:00 07/22/18 15:00 07/22/18 15:00 07/22/18 15:00 Intake and Output: 07/22/18 07/22/18 06:59 18:59 Intake Total 350 Output Total 2850 Balance -2500 - Medications Medications: Current Medications Acetaminophen (Tylenol 325mg Tab) 650 mg PO Q6 PRN PRN Reason: Pain, moderate (4-7) Last Admin: 07/17/18 22:33 Dose: 650 mg Amlodipine Besylate (Norvasc) 10 mg PO DAILY [facility] Last Admin: 07/22/18 09:03 Dose: 10 mg Aspirin (Aspirin Chewable) 81 mg PO DAILY [facility] Last Admin: 07/22/18 09:03 Dose: 81 mg Chlorthalidone (Hygroton) 25 mg PO DAILY [facility] Last Admin: 07/22/18 11:22 Dose: 25 mg Doxazosin Mesylate (Cardura) 2 mg PO DAILY [facility] Ferric Sodium Gluconate Complex (Ferrlecit) 125 mg IVPB DAILY [facility] Stop: 07/29/18 11:01 Last Admin: 07/22/18 09:01 Dose: 125 mg Finasteride (Proscar) 5 mg PO DAILY [facility] Last Admin: 07/22/18 09:02 Dose: 5 mg Hydralazine HCl (Apresoline) 50 mg PO TID [facility] Last Admin: 07/22/18 13:05 Dose: 50 mg Levothyroxine Sodium (Synthroid) 25 mcg PO DAILY@0630 [facility] Last Admin: 07/22/18 05:59 Dose: 25 mcg Losartan Potassium (Cozaar) 100 mg PO DAILY [facility] Last Admin: 07/22/18 09:03 Dose: 100 mg Minoxidil (Minoxidil) 2.5 mg PO BID [facility] Last Admin: 07/22/18 09:02 Dose: 2.5 mg Pantoprazole Sodium (Protonix Ec Tab) 40 mg PO DAILY [facility] Last Admin: 07/22/18 09:02 Dose: 40 mg Sitagliptin Phosphate (Januvia) 100 mg PO DAILY [facility] Last Admin: 07/22/18 09:02 Dose: 100 mg Sucralfate (Carafate Oral Susp) 1 gm PO ACBHS [facility] Last Admin: 07/22/18 06:48 Dose: 1 gm Tamsulosin HCl (Flomax) 0.4 mg PO DAILY [facility] Last Admin: 07/22/18 09:03 Dose: 0.4 mg - Labs Labs: 07/22/18 08:52 07/22/18 08:52 PT 11.3 SECONDS (9.7-12.2) 07/16/18 15:59 INR 1.0 07/16/18 15:59 APTT 43 SECONDS (21-34) H 07/16/18 15:59 - Constitutional Appears: Well - Head Exam Head Exam: ATRAUMATIC, NORMAL INSPECTION, NORMOCEPHALIC - Eye Exam Eye Exam: EOMI, Normal appearance, PERRL Pupil Exam: NORMAL ACCOMODATION, PERRL - ENT Exam ENT Exam: Mucous Membranes Moist, Normal Exam - Neck Exam Neck Exam: Full ROM, Normal Inspection. absent: Lymphadenopathy - Respiratory Exam Respiratory Exam: Decreased Breath Sounds - Cardiovascular Exam Cardiovascular Exam: REGULAR RHYTHM, +S1, +S2 - GI/Abdominal Exam GI & Abdominal Exam: Soft, Diminished Bowel Sounds - Rectal Exam Rectal Exam: Deferred - Neurological Exam Neurological Exam: Oriented x3 Assessment and Plan - Assessment and Plan (Free Text) Plan: medications reviewed labs reviewed vitals reviewed aspirin chewable carafate oral susp cardura cipro cozaar ferrlecit flomax hygroton januvia mag-ox minoxidil norvasc proscar protonix ec tab synthroid tylenol 325mg tab
--- NOTE | 2018-07-23 00:27 | PN ---
DATE: 07/22/2018 SUBJECTIVE: The patient denies any chest pain. No reported hematuria and no reported rectal bleeding. He denies any dizziness. PHYSICAL EXAMINATION: VITAL SIGNS: Blood pressure 188/82, heart rate 98, temperature 98.5, respirations 20. HEENT: Pale conjunctivae. CHEST: Clear. HEART: S1 and S2 regular. EXTREMITIES: No edema. LABORATORY DATA: Today's hemoglobin and hematocrit 9.5 and 28.8. White count 6.5, platelet count 247,000. Today's SMA-7 is within normal limits except for glucose 225. Today's magnesium is below normal at 1.4. ASSESSMENT: 1. Status post symptomatic bradycardia. 2. Uncontrolled diabetes mellitus. 3. Hypomagnesemia. 4. Hypothyroidism. 5. Uncontrolled hypertension. 6. Re-exacerbation of peptic ulcer disease with multiple small gastric polyps with ulceration, pathology still pending. 7. Prostatic hypertrophy and bilateral hydronephrosis. The patient has required indwelling Campoverde catheter. RECOMMENDATIONS: Continue hydralazine at 50 mg t.i.d., Cardura will be increased to 2 mg daily, continue Cozaar at 100 mg once a day, Carafate at 1 g b.i.d., minoxidil 2.5 mg twice a day, Norvasc 10 mg once a day, Proscar at 5 mg once a day, Synthroid 25 mcg once a day. The plan is to perform a colonoscopy when the patient is more stable from the urology point of view according to Dr. Monroy, the nursing tech. Darin Estes MD
[2018-07-23] MEDS: Levothyroxine 25 MCG TAB PO SCH (06:30)
[2018-07-23] MEDS: Sucralfate 1 gm/10 ml Oral Susp UD PO SCH ×2 (06:30→21:33)
[2018-07-23 07:08] LABS: BASO % 0.6 % (0.0-2.0); EOS # 0.2 K/uL (0.0-0.7); EOS % 3.1 % (0.0-4.0); HEMOGLOBIN 9.7 g/dL (12.0-18.0); LYMPH # 1.3 K/uL (1.0-4.3); LYMPH % 21.4 % (20.0-40.0); MEAN CELL VOLUME 81.3 fL (80.0-94.0); MEAN CORPUSCULAR HEMOGLOBIN 27.1 pg (27.0-31.0); MEAN CORPUSCULAR HGB CONC 33.4 g/dL (33.0-37.0); MONO # 0.8 K/uL (0.0-0.8); MONO % 12.2 % (0.0-10.0); NEUT # 3.9 K/uL (1.8-7.0); NEUT % 62.7 % (50.0-75.0); RBC 3.58 Mil/uL (4.40-5.90); WHITE BLOOD COUNT 6.2 K/uL (4.8-10.8)
[2018-07-23 07:47] LABS: ALB/GLOB RATIO 1.3 (1.0-2.1); ALBUMIN 3.9 g/dL (3.5-5.0); ALT/SGPT 19 U/L (21-72); AST/SGOT 28 U/L (17-59); BLOOD UREA NITROGEN 9 mg/dL (9-20); CALCIUM 9.6 mg/dl (8.6-10.4); GFR NON-AFRICAN AMERICAN > 60
[2018-07-23] MEDS: Pantoprazole 40 mg EC Tab PO SCH (09:25)
[2018-07-23] MEDS: Ferric Sodium Gluconat Complex 62.5 mg/5 ml Vial IVPB SCH (09:25)
--- NOTE | 2018-07-23 19:57 | PN ---
DATE: 07/23/2018 LOCATION: 660, bed A. SUBJECTIVE: This is an 87-year-old male, seen and examined in rounds without reported significant clinical changes or active bleeding with mild generalized weakness and malaise. The entire chart is reviewed including but not limited to the most recent lab and radiology study results, current and the previous medication lists, reported intermittent period of mild nausea with dyspepsia. Today's lab results showed hemoglobin 9.7, hematocrit 29.1 with normal platelet count, normal white blood cells. Blood glucose level 159 with again TSH third generation elevated 23.7 but normal liver function tests. PHYSICAL EXAMINATION: GENERAL: An 87-year-old male, awake, alert. VITAL SIGNS: Afebrile with pulse of 100, respiratory rate 20 to 22, blood pressure of 158/74. HEENT: Showed pale, dry oral mucous membranes, nonicteric sclerae. LYMPH NODES: No lymphadenitis or lymphadenopathy. LUNGS: Few scattered crepitation. Decreased air entry at bases. HEART: Positive S1 and S2. ABDOMEN: Soft with mild generalized tenderness. No mass or organomegaly. No rebound tenderness or guarding. EXTREMITIES: Without significant clubbing, cyanosis or edema. NEUROLOGIC: No reported new neurological deficits, sensory or motor. IMPRESSION: 1. Peptic ulcer disease with multiple small gastric polyps, with ulcerations. Awaiting pathology report. 2. Evidence of obstructive uropathy. 3. Known history of hypothyroidism. 4. Poorly controlled hypertension. 5. Anemia, secondary to above. 6. To rule out occult gastrointestinal malignancy. SUGGESTIONS: 1. Agree with your plan. 2. Antireflux measures. 3. Further recommendation to follow. Shakila Dubose MD
--- NOTE | 2018-07-23 20:19 | CP.PCM.PN ---
Subjective - Date & Time of Evaluation Date of Evaluation: 07/23/18 - Subjective Subjective: patient seen today no nausea, no vomiting, no diarrhea, no fever, no dizziness, no shortness of breath Objective - Vital Signs/Intake and Output Vital Signs (last 24 hours): Temp Pulse Resp BP Pulse Ox 98.3 F 95 H 20 153/67 H 99 07/23/18 15:00 07/23/18 16:00 07/23/18 15:00 07/23/18 15:00 07/23/18 15:00 - Medications Medications: Current Medications Acetaminophen (Tylenol 325mg Tab) 650 mg PO Q6 PRN PRN Reason: Pain, moderate (4-7) Last Admin: 07/17/18 22:33 Dose: 650 mg Amlodipine Besylate (Norvasc) 10 mg PO DAILY [facility] Last Admin: 07/23/18 09:27 Dose: 10 mg Aspirin (Aspirin Chewable) 81 mg PO DAILY [facility] Last Admin: 07/23/18 09:26 Dose: 81 mg Chlorthalidone (Hygroton) 25 mg PO DAILY [facility] Last Admin: 07/23/18 09:27 Dose: 25 mg Doxazosin Mesylate (Cardura) 2 mg PO DAILY [facility] Last Admin: 07/23/18 09:25 Dose: 2 mg Ferric Sodium Gluconate Complex (Ferrlecit) 125 mg IVPB DAILY [facility] Stop: 07/29/18 11:01 Last Admin: 07/23/18 09:25 Dose: 125 mg Finasteride (Proscar) 5 mg PO DAILY [facility] Last Admin: 07/23/18 09:27 Dose: 5 mg Hydralazine HCl (Apresoline) 100 mg PO TID [facility] Last Admin: 07/23/18 17:16 Dose: 100 mg Levothyroxine Sodium (Synthroid) 25 mcg PO DAILY@0630 [facility] Last Admin: 07/23/18 06:30 Dose: 25 mcg Losartan Potassium (Cozaar) 100 mg PO DAILY [facility] Last Admin: 07/23/18 09:27 Dose: 100 mg Minoxidil (Minoxidil) 2.5 mg PO BID [facility] Last Admin: 07/23/18 17:16 Dose: 2.5 mg Pantoprazole Sodium (Protonix Ec Tab) 40 mg PO DAILY [facility] Last Admin: 07/23/18 09:25 Dose: 40 mg Sitagliptin Phosphate (Januvia) 100 mg PO DAILY [facility] Last Admin: 07/23/18 09:24 Dose: 100 mg Sucralfate (Carafate Oral Susp) 1 gm PO ACBHS [facility] Last Admin: 07/23/18 06:30 Dose: 1 gm Tamsulosin HCl (Flomax) 0.4 mg PO DAILY [facility] Last Admin: 07/23/18 09:27 Dose: 0.4 mg - Labs Labs: 07/23/18 06:58 07/23/18 06:58 PT 11.3 SECONDS (9.7-12.2) 07/16/18 15:59 INR 1.0 07/16/18 15:59 APTT 43 SECONDS (21-34) H 07/16/18 15:59 - Constitutional Appears: Well - Head Exam Head Exam: ATRAUMATIC, NORMAL INSPECTION, NORMOCEPHALIC - Eye Exam Eye Exam: EOMI, Normal appearance, PERRL Pupil Exam: NORMAL ACCOMODATION, PERRL - ENT Exam ENT Exam: Mucous Membranes Moist, Normal Exam - Neck Exam Neck Exam: Full ROM, Normal Inspection. absent: Lymphadenopathy - Respiratory Exam Respiratory Exam: Decreased Breath Sounds - Cardiovascular Exam Cardiovascular Exam: REGULAR RHYTHM, +S1, +S2 - GI/Abdominal Exam GI & Abdominal Exam: Soft, Diminished Bowel Sounds - Rectal Exam Rectal Exam: Deferred - Neurological Exam Neurological Exam: Oriented x3 Assessment and Plan - Assessment and Plan (Free Text) Plan: labs reviewed vitals reviewed medications reviewed aspirin chewable carafate oral susp cardura cipro cozaar ferrlecit flomax hygroton januvia mag-ox minoxidil norvasc proscar protonix ec tab synthroid tylenol 325mg tab
--- NOTE | 2018-07-23 20:58 | CP.PCM.PN ---
Subjective - Date & Time of Evaluation Date of Evaluation: 07/23/18 Time of Evaluation: 12:00 - Subjective Subjective: 87 yo M w/ pmh of HTN, DM, gastric ulcers, anemia and enlarged prostate, admitted with symptomatic heart block and obstructive uropathy; Patient reports feeling well; no dyspnea, ambulating the hallway without issues; Objective - Vital Signs/Intake and Output Vital Signs (last 24 hours): Temp Pulse Resp BP Pulse Ox 98.3 F 95 H 20 153/67 H 99 07/23/18 15:00 07/23/18 16:00 07/23/18 15:00 07/23/18 15:00 07/23/18 15:00 - Medications Medications: Current Medications Acetaminophen (Tylenol 325mg Tab) 650 mg PO Q6 PRN PRN Reason: Pain, moderate (4-7) Last Admin: 07/17/18 22:33 Dose: 650 mg Amlodipine Besylate (Norvasc) 10 mg PO DAILY [facility] Last Admin: 07/23/18 09:27 Dose: 10 mg Aspirin (Aspirin Chewable) 81 mg PO DAILY [facility] Last Admin: 07/23/18 09:26 Dose: 81 mg Chlorthalidone (Hygroton) 25 mg PO DAILY [facility] Last Admin: 07/23/18 09:27 Dose: 25 mg Doxazosin Mesylate (Cardura) 2 mg PO DAILY [facility] Last Admin: 07/23/18 09:25 Dose: 2 mg Ferric Sodium Gluconate Complex (Ferrlecit) 125 mg IVPB DAILY [facility] Stop: 07/29/18 11:01 Last Admin: 07/23/18 09:25 Dose: 125 mg Finasteride (Proscar) 5 mg PO DAILY [facility] Last Admin: 07/23/18 09:27 Dose: 5 mg Hydralazine HCl (Apresoline) 100 mg PO TID [facility] Last Admin: 07/23/18 17:16 Dose: 100 mg Levothyroxine Sodium (Synthroid) 25 mcg PO DAILY@0630 [facility] Last Admin: 07/23/18 06:30 Dose: 25 mcg Losartan Potassium (Cozaar) 100 mg PO DAILY [facility] Last Admin: 07/23/18 09:27 Dose: 100 mg Minoxidil (Minoxidil) 2.5 mg PO BID [facility] Last Admin: 07/23/18 17:16 Dose: 2.5 mg Pantoprazole Sodium (Protonix Ec Tab) 40 mg PO DAILY [facility] Last Admin: 07/23/18 09:25 Dose: 40 mg Sitagliptin Phosphate (Januvia) 100 mg PO DAILY [facility] Last Admin: 07/23/18 09:24 Dose: 100 mg Sucralfate (Carafate Oral Susp) 1 gm PO ACBHS [facility] Last Admin: 07/23/18 06:30 Dose: 1 gm Tamsulosin HCl (Flomax) 0.4 mg PO DAILY [facility] Last Admin: 07/23/18 09:27 Dose: 0.4 mg - Labs Labs: 07/23/18 06:58 07/23/18 06:58 PT 11.3 SECONDS (9.7-12.2) 07/16/18 15:59 INR 1.0 07/16/18 15:59 APTT 43 SECONDS (21-34) H 07/16/18 15:59 - Constitutional Appears: Non-toxic, No Acute Distress - Eye Exam Eye Exam: Normal appearance - Respiratory Exam Respiratory Exam: Clear to Ausculation Bilateral. absent: Respiratory Distress - Cardiovascular Exam Cardiovascular Exam: RRR, +S1, +S2 - GI/Abdominal Exam GI & Abdominal Exam: Soft. absent: Distended, Tenderness - Extremities Exam Additional comments: no leg edema; - Neurological Exam Neurological Exam: Alert, Awake - Psychiatric Exam Psychiatric exam: Normal Affect, Normal Mood. absent: Agitated - Skin Skin Exam: Warm. absent: Cyanosis Assessment and Plan (1) Obstructive uropathy Assessment & Plan: Renal function improved to baseline with terrell in place; patient failed voiding trial 2 days ago so terrell was re-inserted, should be kept w/ leg bag on d/c home with outpatient urology f/u; continue flomax 0.4 mg and finasteride 5 mg daily; addition of cardura should also help; Status: Acute (2) Anemia Assessment & Plan: Iron deficiency in the setting of gastric ulcers; continue IV iron, switch to PO iron on d/c; Status: Acute (3) Hypertension Assessment & Plan: BP much better controlled, continue current meds; Status: Acute
--- NOTE | 2018-07-23 22:17 | PN ---
DATE: 07/23/2018 SUBJECTIVE: The patient denies any dizziness. He is in sinus rhythm on the monitor. PHYSICAL EXAMINATION: VITAL SIGNS: Blood pressure 153/67, heart rate 89, temperature 98.3, and respirations 20. HEENT: Pale conjunctivae. CHEST: Clear. HEART: S1 and S2 regular. ABDOMEN: Soft. EXTREMITIES: No edema. LABORATORY DATA: Today's hemoglobin and hematocrit 9.7 and 29.1. White count and platelet count are within normal limits. SMA-7 is within normal limits except for a glucose of 159. Magnesium level today is 1.7 after intravenous magnesium sulfate replacement given yesterday. ASSESSMENT: 1. 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 The patient was on beta-blockers and clonidine therapy and was recently diagnosed with hypothyroidism and is currently in normal sinus rhythm. 2. Diabetes mellitus. 3. Hypertension. 4. Re-exacerbation of peptic ulcer disease with multiple small gastric polyps with ulceration. The pathology report of the gastric polyp is ulcerated hyperplastic gastric mucosa with associated acute inflammation, negative for Helicobacter pylori. 5. 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 RECOMMENDATIONS: Continue hydralazine 100 mg t.i.d., aspirin 81 mg once a day, Cardura 2 mg once a day, Cozaar 100 mg once a day, chlorthalidone 25 mg once a day, Norvasc 10 mg once a day, continue minoxidil 2.5 mg twice a day, Synthroid 25 mcg once a day. No pacemaker placement is indicated or justified at this time. The plan is to discharge the patient and undergo colonoscopy as an outpatient, which is okay from the cardiac point of view. Darin Estes MD
[2018-07-24] MEDS: Levothyroxine 25 MCG TAB PO SCH (06:33)
[2018-07-24 06:43] LABS: BASO % 0.5 % (0.0-2.0); EOS # 0.1 K/uL (0.0-0.7); EOS % 2.1 % (0.0-4.0); HEMOGLOBIN 9.1 g/dL (12.0-18.0); LYMPH # 0.8 K/uL (1.0-4.3); LYMPH % 11.3 % (20.0-40.0); MEAN CELL VOLUME 80.8 fL (80.0-94.0); MEAN CORPUSCULAR HEMOGLOBIN 27.5 pg (27.0-31.0); MEAN PLATELET VOLUME 7.9 fL (7.2-11.7); MONO # 0.8 K/uL (0.0-0.8); MONO % 11.8 % (0.0-10.0); NEUT % 74.3 % (50.0-75.0); RBC 3.33 Mil/uL (4.40-5.90); RED CELL DISTRIBUTION WIDTH 15.9 % (11.5-14.5); WHITE BLOOD COUNT 6.8 K/uL (4.8-10.8)
[2018-07-24 07:41] LABS: ALB/GLOB RATIO 1.2 (1.0-2.1); ALBUMIN 3.4 g/dL (3.5-5.0); ALT/SGPT 25 U/L (21-72); AST/SGOT 25 U/L (17-59); BLOOD UREA NITROGEN 12 mg/dL (9-20); CALCIUM 9.1 mg/dl (8.6-10.4); GFR NON-AFRICAN AMERICAN > 60
[2018-07-24] MEDS: Pantoprazole 40 mg EC Tab PO SCH (09:26)
[2018-07-24] MEDS: Ferric Sodium Gluconat Complex 62.5 mg/5 ml Vial IVPB SCH (09:26)
--- NOTE | 2018-07-24 09:35 | CP.PCM.PN ---
Subjective - Date & Time of Evaluation Date of Evaluation: 07/24/18 Time of Evaluation: 09:40 - Subjective Subjective: Covering for EP. Elderly male with History of Hypertension and Hypothyroidism. EP was consulted for Bardycardia with Second degree A-V block. Denies any new coplaints. Objective - Vital Signs/Intake and Output Vital Signs (last 24 hours): Temp Pulse Resp BP Pulse Ox 98.8 F 100 H 20 108/60 98 07/24/18 07:00 07/24/18 07:00 07/24/18 07:00 07/24/18 07:00 07/24/18 07:00 Intake and Output: 07/24/18 07/24/18 06:59 18:59 Intake Total 200 Output Total 2150 Balance -1950 - Medications Medications: Current Medications Acetaminophen (Tylenol 325mg Tab) 650 mg PO Q6 PRN PRN Reason: Pain, moderate (4-7) Last Admin: 07/17/18 22:33 Dose: 650 mg Amlodipine Besylate (Norvasc) 10 mg PO DAILY [facility] Last Admin: 07/24/18 09:25 Dose: 10 mg Aspirin (Aspirin Chewable) 81 mg PO DAILY [facility] Last Admin: 07/24/18 09:27 Dose: 81 mg Chlorthalidone (Hygroton) 25 mg PO DAILY [facility] Last Admin: 07/23/18 09:27 Dose: 25 mg Doxazosin Mesylate (Cardura) 2 mg PO DAILY [facility] Last Admin: 07/23/18 09:25 Dose: 2 mg Ferric Sodium Gluconate Complex (Ferrlecit) 125 mg IVPB DAILY [facility] Stop: 07/29/18 11:01 Last Admin: 07/24/18 09:26 Dose: 125 mg Finasteride (Proscar) 5 mg PO DAILY [facility] Last Admin: 07/24/18 09:25 Dose: 5 mg Hydralazine HCl (Apresoline) 100 mg PO TID [facility] Last Admin: 07/24/18 09:26 Dose: 100 mg Levothyroxine Sodium (Synthroid) 25 mcg PO DAILY@0630 [facility] Last Admin: 07/24/18 06:33 Dose: Not Given Losartan Potassium (Cozaar) 100 mg PO DAILY [facility] Last Admin: 07/24/18 09:25 Dose: 100 mg Minoxidil (Minoxidil) 2.5 mg PO BID [facility] Last Admin: 07/24/18 09:27 Dose: 2.5 mg Pantoprazole Sodium (Protonix Ec Tab) 40 mg PO DAILY [facility] Last Admin: 07/24/18 09:26 Dose: 40 mg Sitagliptin Phosphate (Januvia) 100 mg PO DAILY [facility] Last Admin: 07/24/18 09:27 Dose: 100 mg Sucralfate (Carafate Oral Susp) 1 gm PO ACBHS [facility] Last Admin: 07/23/18 21:33 Dose: 1 gm Tamsulosin HCl (Flomax) 0.4 mg PO DAILY [facility] Last Admin: 07/24/18 09:27 Dose: 0.4 mg - Labs Labs: 07/24/18 06:26 07/24/18 06:26 PT 11.3 SECONDS (9.7-12.2) 07/16/18 15:59 INR 1.0 07/16/18 15:59 APTT 43 SECONDS (21-34) H 07/16/18 15:59 - Head Exam Head Exam: NORMOCEPHALIC - Neck Exam Neck Exam: Normal Inspection - Respiratory Exam Respiratory Exam: NORMAL BREATHING PATTERN - Cardiovascular Exam Cardiovascular Exam: REGULAR RHYTHM, Murmur - Extremities Exam Extremities Exam: Normal Inspection - Neurological Exam Neurological Exam: Alert, Oriented x3 Assessment and Plan (1) Bradycardia Assessment & Plan: Resolved and in sinus rhythm. A-V block is also resolved. Most like secondary to Beta blockers and Hypothyroidism with electrolyte abnormalities. Corrected now. Reintroduce beat blockers of needed and monitor. From EP point august D/C /. Dung low-up with Dr. Lowery as out patient. Status: Acute (2) Second degree AV block, Mobitz type I Status: Acute
--- NOTE | 2018-07-24 10:20 | PN ---
DATE: 07/24/2018 LOCATION: 660, bed A. SUBJECTIVE: This is an 87-year-old male seen and examined in rounds without significant clinical changes or reported active bleeding, but intermittent period of abdominal pain and postprandial abdominal distention. The entire chart is reviewed including, but not limited to the most recent lab and radiology study results. Today's hemoglobin 9.1, hematocrit 29.9, but normal white blood cells and normal platelet count. Blood glucose level 167. PHYSICAL EXAMINATION: GENERAL: An 87-year-old male, awake, alert, and oriented. VITAL SIGNS: Afebrile with pulse of 98, respiratory rate 20 to 22, blood pressure 130/66. HEENT: Pale, dry, oral mucous membrane, nonicteric sclerae. LUNGS: Few scattered crepitation. Decreased air entry at bases. HEART: Positive S1 and S2 with increased rate. EXTREMITIES: Without significant clubbing, cyanosis, or edema. NEUROLOGIC: No reported new neurological deficits, sensory or motor. IMPRESSION: 1. Evidence of obstructive uropathy. 2. Exacerbation of peptic ulcer disease. 3. Reported second degree heart block with 2:1 conduction. 4. Peptic ulcer disease. 5. Poorly controlled diabetes mellitus. 6. Hypertension by history. PLAN: 1. The patient will need followup Urology before any further aggressive GI workup. 2. The possibility for occult GI malignancy should be ruled in or out. Shakila Dubose MD
[2018-07-24] MEDS ORDERED: Magnesium Sulfate 1 gm in D5W 1 GM/100 ML BAG IVPB ONE (12:45)
[2018-07-24 16:26] VITALS: BP 132/60; TEMP 98.5; O2SAT 96
--- NOTE | 2018-07-24 16:38 | CP.PCM.PN ---
Subjective - Date & Time of Evaluation Date of Evaluation: 07/24/18 Time of Evaluation: 16:38 - Subjective Subjective: PATIENT SEEN AND EXAMINED AT THE BEDSIDE Objective - Vital Signs/Intake and Output Vital Signs (last 24 hours): Temp Pulse Resp BP Pulse Ox 98.5 F 66 20 132/60 96 07/24/18 15:00 07/24/18 15:00 07/24/18 15:00 07/24/18 15:00 07/24/18 15:00 Intake and Output: 07/24/18 07/24/18 06:59 18:59 Intake Total 200 Output Total 2150 Balance -1950 - Medications Medications: Current Medications Acetaminophen (Tylenol 325mg Tab) 650 mg PO Q6 PRN PRN Reason: Pain, moderate (4-7) Last Admin: 07/17/18 22:33 Dose: 650 mg Amlodipine Besylate (Norvasc) 10 mg PO DAILY [facility] Last Admin: 07/24/18 09:25 Dose: 10 mg Aspirin (Aspirin Chewable) 81 mg PO DAILY [facility] Last Admin: 07/24/18 09:27 Dose: 81 mg Chlorthalidone (Hygroton) 25 mg PO DAILY [facility] Last Admin: 07/24/18 10:30 Dose: 25 mg Ciprofloxacin (Cipro) 500 mg PO BID [facility]; Protocol Stop: 08/03/18 18:01 Doxazosin Mesylate (Cardura) 2 mg PO DAILY [facility] Last Admin: 07/24/18 10:30 Dose: 2 mg Ferric Sodium Gluconate Complex (Ferrlecit) 125 mg IVPB DAILY [facility] Stop: 07/29/18 11:01 Last Admin: 07/24/18 09:26 Dose: 125 mg Finasteride (Proscar) 5 mg PO DAILY [facility] Last Admin: 07/24/18 09:25 Dose: 5 mg Hydralazine HCl (Apresoline) 50 mg PO BID [facility] Levothyroxine Sodium (Synthroid) 25 mcg PO DAILY@0630 [facility] Last Admin: 07/24/18 06:33 Dose: Not Given Losartan Potassium (Cozaar) 100 mg PO DAILY [facility] Last Admin: 07/24/18 09:25 Dose: 100 mg Magnesium Oxide (Mag-Ox) 400 mg PO BID [facility] Minoxidil (Minoxidil) 2.5 mg PO BID [facility] Last Admin: 07/24/18 09:27 Dose: 2.5 mg Pantoprazole Sodium (Protonix Ec Tab) 40 mg PO DAILY [facility] Last Admin: 07/24/18 09:26 Dose: 40 mg Sitagliptin Phosphate (Januvia) 100 mg PO DAILY [facility] Last Admin: 07/24/18 09:27 Dose: 100 mg Sucralfate (Carafate Oral Susp) 1 gm PO ACBHS [facility] Last Admin: 07/23/18 21:33 Dose: 1 gm Tamsulosin HCl (Flomax) 0.4 mg PO DAILY [facility] Last Admin: 07/24/18 09:27 Dose: 0.4 mg - Labs Labs: 07/24/18 06:26 07/24/18 06:26 PT 11.3 SECONDS (9.7-12.2) 07/16/18 15:59 INR 1.0 07/16/18 15:59 APTT 43 SECONDS (21-34) H 07/16/18 15:59 Assessment and Plan - Assessment and Plan (Free Text) Assessment: FOLLOW UP WITH DR Joe PONCE OR DR VELAZQUEZ IN HIS OFFICE -----CALL FOR APPOINTMENT FOLLOW UP WITH DR SAMUEL FOLLOW UP WITH DR AMAYA---CALL FOR APPOINTMENT CONTINUE HOME MEDICATION NEW PRESCRIPTION GIVEN CHOLTHIALIDONE 25 MG PO DIALY CIPRO 500 MG PO BID FOR 9 DAYS DOXAZOSIN 1 MG PO DAILY PROSCAR 5 MG PO DAILY HYDRALAZINE 50 MG PO BID SYNTHROID 25 MCG PO DAILY FLOMAX 0.4 MG PO DAILY LOSARTAN 100 MG PO DAILY AMLODIPINE 10 MG PO DAILY DISCONTINUE COREG/CLONIDINE/HYDRALAZINE 100MG/DIOVAN ACITIVITY TOLERATED SOLER CATH CARE INSTRUCTED CALL DR Joe PONCE OR DR VELAZQUEZ OR GO TO THE EMERGENCY ROOM IF SYMPTOM RETURN OR WORSENING
[2018-07-24 16:43] VITALS: PULSE 99
--- NOTE | 2018-07-24 17:07 | CP.PCM.DIS ---
Provider - Provider Date of Admission: 07/16/18 18:45 Attending physician: Nitin Acuna MD Consults: 07/16/18 18:45 Cardiology Consult Stat Comment: Consulting Provider: Darin Estes Consulting Physician: Darin Estes Reason for Consult: bradycardiac, mobitz type 1, lightheaded. 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 07/18/18 09:53 Nephrology Consult Routine Comment: Consulting Provider: Andrew Tucker Consulting Physician: Andrew Tucker Reason for Consult: persistent hyperkalemia, heart block 07/19/18 12:13 Urology Consult Routine Comment: Consulting Provider: Celestino Kingsley Consulting Physician: Celestino Kingsley Reason for Consult: BPH, urinary retention, hydroureteronephrosis 07/24/18 09:29 Cardiology Consult Routine Comment: covering for Consulting Provider: Wolfgang Lundberg Consulting Physician: Wolfgang Lundberg Reason for Consult: covering for Hospital Course - Lab Results Lab Results: Micro Results 07/21/18 17:22 Urine,Clean Catch Urine Culture - Final Escherichia Coli Enterococcus Faecalis 07/21/18 06:18 Nose MRSA Culture - Final MRSA NOT DETECTED 07/18/18 12:53 Urine,Soler Urine Culture - Final No Growth (<1,000 CFU/ML) 07/17/18 13:48 Nose MRSA Culture (Admit) - Final MRSA NOT DETECTED Most Recent Lab Values WBC 6.8 K/uL (4.8-10.8) 07/24/18 06:26 RBC 3.33 Mil/uL (4.40-5.90) L 07/24/18 06:26 Hgb 9.1 g/dL (12.0-18.0) L 07/24/18 06:26 Hct 26.9 % (35.0-51.0) L 07/24/18 06:26 MCV 80.8 fL (80.0-94.0) 07/24/18 06:26 MCH 27.5 pg (27.0-31.0) 07/24/18 06:26 MCHC 34.0 g/dL (33.0-37.0) 07/24/18 06:26 RDW 15.9 % (11.5-14.5) H 07/24/18 06:26 Plt Count 308 K/uL (130-400) 07/24/18 06:26 MPV 7.9 fL (7.2-11.7) 07/24/18 06:26 Neut % (Auto) 74.3 % (50.0-75.0) 07/24/18 06:26 Lymph % (Auto) 11.3 % (20.0-40.0) L 07/24/18 06:26 [place] % (Auto) 11.8 % (0.0-10.0) H 07/24/18 06:26 Eos % (Auto) 2.1 % (0.0-4.0) 07/24/18 06:26 Baso % (Auto) 0.5 % (0.0-2.0) 07/24/18 06:26 Neut # (Auto) 5.0 K/uL (1.8-7.0) 07/24/18 06:26 Lymph # (Auto) 0.8 K/uL (1.0-4.3) L 07/24/18 06:26 [place] # (Auto) 0.8 K/uL (0.0-0.8) 07/24/18 06:26 Eos # (Auto) 0.1 K/uL (0.0-0.7) 07/24/18 06:26 Baso # (Auto) 0.0 K/uL (0.0-0.2) 07/24/18 06:26 Neutrophils % (Manual) 81 % (50-75) H 07/20/18 06:14 Band Neutrophils % 2 % (0-2) 07/20/18 06:14 Lymphocytes % (Manual) 6 % (20-40) L 07/20/18 06:14 Monocytes % (Manual) 11 % (0-10) H 07/20/18 06:14 Platelet Estimate Normal (NORMAL) 07/20/18 06:14 Hypochromasia (manual) Slight 07/20/18 06:14 Anisocytosis (manual) Slight 07/20/18 06:14 PT 11.3 SECONDS (9.7-12.2) 07/16/18 15:59 INR 1.0 07/16/18 15:59 APTT 43 SECONDS (21-34) H 07/16/18 15:59 Sodium 132 mmol/L (132-148) 07/24/18 06:26 Potassium 4.5 mmol/L (3.6-5.2) 07/24/18 06:26 Chloride 99 mmol/L (98-107) 07/24/18 06:26 Carbon Dioxide 25 mmol/L (22-30) 07/24/18 06:26 Anion Gap 13 (10-20) 07/24/18 06:26 BUN 12 mg/dL (9-20) 07/24/18 06:26 Creatinine 1.0 mg/dL (0.8-1.5) 07/24/18 06:26 Est GFR ( Amer) > 60 07/24/18 06:26 Est GFR (Non-Af Amer) > 60 07/24/18 06:26 POC Glucose (mg/dL) 184 mg/dL (65-110) H 07/24/18 10:37 Random Glucose 163 mg/dL (75-110) H 07/24/18 06:26 Serum Osmolality 291 mosm/kg (272-300) 07/18/18 11:02 Calcium 9.1 mg/dl (8.6-10.4) 07/24/18 06:26 Phosphorus 3.7 mg/dL (2.5-4.5) 07/24/18 06:26 Magnesium 1.5 mg/dL (1.6-2.3) L 07/24/18 06:26 Iron 13 ug/dL (49-181) L 07/21/18 07:02 TIBC 291 ug/dL (250-450) 07/21/18 07:02 % Saturation 4 (20-55) L 07/21/18 07:02 Ferritin 26.5 ng/mL 07/21/18 07:02 Total Bilirubin 0.3 mg/dL (0.2-1.3) 07/24/18 06:26 AST 25 U/L (17-59) 07/24/18 06:26 ALT 25 U/L (21-72) 07/24/18 06:26 Alkaline Phosphatase 46 U/L (38-126) 07/24/18 06:26 Troponin I < 0.0120 ng/mL (0.00-0.120) 07/16/18 15:59 NT-Pro-B Natriuret Pep 2120 pg/mL (0-900) H 07/16/18 15:59 Total Protein 6.2 g/dL (6.3-8.3) L 07/24/18 06:26 Albumin 3.4 g/dL (3.5-5.0) L 07/24/18 06:26 Globulin 2.8 gm/dL (2.2-3.9) 07/24/18 06:26 Albumin/Globulin Ratio 1.2 (1.0-2.1) 07/24/18 06:26 Lipase 164 U/L (23-300) 07/16/18 15:59 Carcinoembryonic Ag 1.9 ng/mL (0-3.0) 07/18/18 11:02 CA 19-9 Antigen 64.7 U/mL (0-37) H 07/18/18 11:02 Prostate Specific Ag 1.56 ng/mL (0.00-4.0) 07/19/18 09:02 Renin 0.23 ng/mL/h (0.25-5.82) L 07/18/18 10:55 Aldosterone 4 ng/dL 07/18/18 10:55 Aldosterone/Renin Ratio 17.4 Ratio (0.9-28.9) 07/18/18 10:55 Free T4 0.90 ng/dL (0.78-2.19) 07/23/18 06:58 Thyroxine (T4) 9.48 ug/dL (5.5-11.0) 07/18/18 11:02 Free T3 pg/mL 2.67 pg/mL (2.77-5.27) L 07/18/18 11:02 TSH 3rd Generation 17.70 mIU/L (0.46-4.68) H 07/24/18 06:26 Urine Color Yellow (YELLOW) 07/21/18 17:22 Urine Clarity Hazy (Clear) 07/21/18 17:22 Urine pH 6.0 (5.0-8.0) 07/21/18 17:22 Ur Specific Leiter 1.008 (1.003-1.030) 07/21/18 17:22 Urine Protein 2+ mg/dL (NEGATIVE) H 07/21/18 17:22 Urine Glucose (UA) Normal mg/dL (Normal) 07/21/18 17:22 Urine Ketones Negative mg/dL (NEGATIVE) 07/21/18 17:22 Urine Blood 2+ (NEGATIVE) H 07/21/18 17:22 Urine Nitrate Negative (NEGATIVE) 07/21/18 17:22 Urine Bilirubin Negative (NEGATIVE) 07/21/18 17:22 Urine Urobilinogen Normal mg/dL (0.2-1.0) 07/21/18 17:22 Ur Leukocyte Esterase Trace Jose/uL (Negative) 07/21/18 17:22 Urine WBC (Auto) 16 /hpf (0-5) H 07/21/18 17:22 Urine RBC (Auto) 463 /hpf (0-3) H 07/21/18 17:22 Ur Squamous Epith Cells < 1 /hpf (0-5) 07/18/18 12:53 Urine Osmolality 280 mosm/kg (300-1000) L 07/18/18 12:56 Ur Random Creatinine 90.0 mg/dL 07/18/18 12:56 U Random Total Protein 1198 mg/g creat (22-128) H 07/18/18 14:30 Ur Random Sodium 21 mmol/L 07/18/18 12:56 Ur Random Potassium 38.8 mmol/L 07/18/18 12:56 Ur Random Urea Nitrogn 379 mg/dL 07/18/18 12:56 Stool Occult Blood Negative (NEGATIVE) 07/20/18 08:28 Discharge Exam - Head Exam Head Exam: NORMOCEPHALIC Discharge Plan - Discharge Medications Prescriptions: hydrALAZINE [Apresoline] 50 mg PO BID 30 Days tab Doxazosin [Cardura] 2 mg PO DAILY 30 Days tab Ciprofloxacin [Cipro] 500 mg PO BID 9 Days tab Losartan [Cozaar] 100 mg PO DAILY 30 Days tab Tamsulosin [Flomax] 0.4 mg PO DAILY 30 Days cap Chlorthalidone [Hygroton] 25 mg PO DAILY 30 Days tab Minoxidil 2.5 mg PO BID 30 Days tab amLODIPine [Norvasc] 10 mg PO DAILY 30 Days tab Finasteride [Proscar] 5 mg PO DAILY 30 Days tab Levothyroxine [Synthroid] 25 mcg PO DAILY@0630 30 Days tab - Follow Up Plan Condition: STABLE Disposition: HOME/ ROUTINE Instructions: High Blood Pressure (DC), Hyperkalemia (DC), Urinary Obstruction (DC) Additional Instructions: FOLLOW UP WITH DR Joe ACUNA OR DR VELAZQUEZ IN HIS OFFICE -----CALL FOR APPOINTMENT FOLLOW UP WITH DR TUCKER FOLLOW UP WITH DR KINGSLEY---CALL FOR APPOINTMENT CONTINUE HOME MEDICATION NEW PRESCRIPTION GIVEN CHOLTHIALIDONE 25 MG PO DIALY CIPRO 500 MG PO BID FOR 9 DAYS DOXAZOSIN 1 MG PO DAILY PROSCAR 5 MG PO DAILY HYDRALAZINE 50 MG PO BID SYNTHROID 25 MCG PO DAILY FLOMAX 0.4 MG PO DAILY LOSARTAN 100 MG PO DAILY AMLODIPINE 10 MG PO DAILY DISCONTINUE COREG/CLONIDINE/HYDRALAZINE 100MG/DIOVAN ACITIVITY TOLERATED SOLER CATH CARE INSTRUCTED CALL DR Joe ACUNA OR DR VELAZQUEZ OR GO TO THE EMERGENCY ROOM IF SYMPTOM RETURN OR WORSENING Referrals: Harman Waddell MD [Staff Provider] - Joi Lowery MD [Staff Provider] - Shakila Monroy [Staff Provider] - Darin Estes MD [Staff Provider] - Andrew Tucker MD [Staff Provider] - Arden Acuna MD [Staff Provider] - Celestino Kingsley MD [Staff Provider] -
[2018-07-24] MEDS ORDERED: Magnesium Oxide 400 mg Tab UD PO SCH (18:00)
--- NOTE | 2018-07-25 06:48 | PN ---
DATE: 07/24/2018 SUBJECTIVE: The patient denies any dizziness or chest pain. He ambulated and he is still having indwelling [place] catheter. PHYSICAL EXAMINATION: VITAL SIGNS: Blood pressure 108/60, heart rate 100, temperature 98.8, and respirations 20. HEENT: Pale conjunctivae. CHEST: Clear. HEART: S1 and S2 regular. EXTREMITIES: No edema. LABORATORY DATA: Today's hemoglobin and hematocrit 9.1 and 26.9. White count and platelet count are within normal limits. Today's SMA-7 is within normal limits except for a glucose of 163. Magnesium is 1.5. ASSESSMENT: 1. Status post symptomatic bradycardia. 2. Hypothyroidism. 3. Hypomagnesemia. 4. Status post obstructive uropathy. 5. Anemia. 6. Gastritis and gastric polyps. RECOMMENDATIONS: Continue hydralazine 50 mg twice a day, aspirin 81 mg once a day, Cardura 2 mg once a day, Carafate 1 g twice a day, Cipro 500 mg twice a day, Cozaar at 100 mg once a day, Ferrlecit infusion at 125 mg daily, chlorthalidone 25 mg once a day, Flomax 0.4 mg daily, magnesium oxide 400 mg twice a day. The patient is currently receiving 1 g of magnesium sulfate intravenous placement. Continue minoxidil at 2.5 mg twice a day, Synthroid at 25 mcg daily. The patient will follow up with his urologist as well as lead application architect. Darin Estes MD
--- NOTE | 2018-07-25 08:45 | CP.PCM.PN ---
Subjective - Date & Time of Evaluation Date of Evaluation: 07/24/18 Time of Evaluation: 13:00 - Subjective Subjective: Patient reports feeling well; tolerating diet well; no sob; Objective - Vital Signs/Intake and Output Vital Signs (last 24 hours): Temp Pulse Resp BP Pulse Ox 98.5 F 99 H 20 132/60 96 07/24/18 15:00 07/24/18 16:00 07/24/18 15:00 07/24/18 15:00 07/24/18 15:00 - Labs Labs: 07/24/18 06:26 07/24/18 06:26 PT 11.3 SECONDS (9.7-12.2) 07/16/18 15:59 INR 1.0 07/16/18 15:59 APTT 43 SECONDS (21-34) H 07/16/18 15:59 - Constitutional Appears: Non-toxic, No Acute Distress - Eye Exam Eye Exam: Normal appearance - Respiratory Exam Respiratory Exam: Clear to Ausculation Bilateral. absent: Respiratory Distress - Cardiovascular Exam Cardiovascular Exam: RRR, +S1, +S2 - GI/Abdominal Exam GI & Abdominal Exam: Soft. absent: Distended - Extremities Exam Additional comments: no leg edema; - Neurological Exam Neurological Exam: Alert, Awake - Psychiatric Exam Psychiatric exam: Normal Mood. absent: Agitated - Skin Skin Exam: Warm. absent: Cyanosis Assessment and Plan (1) Obstructive uropathy Assessment & Plan: Patient instructed on need to maintain terrell and f/u with urology as outpatient; will continue with flomax and finasteride; Status: Acute (2) Anemia Assessment & Plan: Giving IV iron loading while here; needs GI f/u/ Status: Acute (3) Hypertension Assessment & Plan: BP now well controlled; will continue with current meds on d/c; Status: Acute
== END 2018-07-24 18:45 | disposition home or self-care (01) | DRG 308 ==
LOC: C.ER 13:42 → C.9E 18:45 → C.6T 19:56 → C.9I 07-17 12:54 → C.6T 07-20 19:22
PROVIDERS: ADMIT Internal Medicine Nephrology; ATTEND Internal Medicine Nephrology
PROC: 0DB68ZZ Excision of Stomach, Via Natural or Artificial Opening Endoscopic (ICD-10-PCS; 2018-07-20)
PROC: 0DB68ZX Excision of Stomach, Via Natural or Artificial Opening Endoscopic, Diagnostic (ICD-10-PCS; principal; 2018-07-20 11:25)
PROC: 0T9B70Z Drainage of Bladder with Drainage Device, Via Natural or Artificial Opening (ICD-10-PCS; 2018-07-21)
DX: I44.1 Atrioventricular block, second degree (principal); K25.4 Chronic or unspecified gastric ulcer with hemorrhage; I16.0 Hypertensive urgency; N17.9 Acute kidney failure, unspecified; E87.1 Hypo-osmolality and hyponatremia; E87.2 Acidosis; N13.8 Other obstructive and reflux uropathy; N13.30 Unspecified hydronephrosis; E86.0 Dehydration; E87.5 Hyperkalemia; I10 Essential (primary) hypertension; N32.0 Bladder-neck obstruction; E11.65 Type 2 diabetes mellitus with hyperglycemia; K31.7 Polyp of stomach and duodenum; K44.9 Diaphragmatic hernia without obstruction or gangrene; R00.1 Bradycardia, unspecified; I35.8 Other nonrheumatic aortic valve disorders; N40.1 Benign prostatic hyperplasia with lower urinary tract symptoms; D50.9 Iron deficiency anemia, unspecified; E03.9 Hypothyroidism, unspecified; I27.20 Pulmonary hypertension, unspecified; E83.39 Other disorders of phosphorus metabolism; E78.5 Hyperlipidemia, unspecified; R31.9 Hematuria, unspecified; E83.42 Hypomagnesemia; Z79.890 Hormone replacement therapy; Z79.4 Long term (current) use of insulin; Z79.899 Other long term (current) drug therapy; Z87.11 Personal history of peptic ulcer disease

== ENCOUNTER 2018-08-06 14:05 | Emergency (ER) | payer MEDICARE ==
[2018-08-06 14:15] VITALS: BP 156/68; PULSE 89; RESP 18; TEMP 98.5; O2SAT 95
--- NOTE | 2018-08-06 14:46 | C.PDOC ---
History Of Present Illness 87 y/o male,w/PMhx of diabetes and HTN, presents to the ER for terrell catheter removal. Patient states that he was hospitalized for uncontrolled HTN and hyperkalemia in [facility] 2 weeks ago. At the time, patient reports that he was discharged with terrell catheter for urinary retention. He was instructed to follow up with . He notes that went to 's office but had an emergency.So, he decided to come to the ER. Denies having fever,chills,nausea, vomiting,abdominal pain, back pain, and urinary symptoms. Time Seen by Provider: 08/06/18 14:18 Chief Complaint (Nursing): Male Genitourinary History Per: Patient History/Exam Limitations: no limitations Past Medical History Reviewed: Historical Data, Nursing Documentation, Vital Signs Vital Signs: Last Vital Signs Temp 98.5 F 08/06/18 14:10 Pulse 89 08/06/18 14:10 Resp 18 08/06/18 14:10 BP 156/68 H 08/06/18 14:10 Pulse Ox 95 08/06/18 14:10 Primary Care Provider: Non [facility] Provider, - Medical History PMH: Anemia, HTN Denies: Chronic Kidney Disease Surgical History: No Surg Hx - [facility] Procedures DRAINAGE OF BLADDER WITH DRAINAGE DEVICE, VIA OPENING (07/16/18) EXCISION OF STOMACH, ENDO (07/16/18) EXCISION OF STOMACH, ENDO, DIAGN (07/16/18) Family History: States: No Known Family Hx - Social History Hx Alcohol Use: Yes Hx Substance Use: No - Immunization History Hx Tetanus Toxoid Vaccination: No Hx Influenza Vaccination: Yes Hx Pneumococcal Vaccination: No Review Of Systems Except As Marked, All Systems Reviewed And Found Negative. Constitutional: Negative for: Fever, Chills Gastrointestinal: Negative for: Nausea, Vomiting, Abdominal Pain Genitourinary: Negative for: Dysuria, Hematuria Musculoskeletal: Negative for: Back Pain Physical Exam - Physical Exam Appears: Non-toxic, No Acute Distress Skin: Normal Color, Warm, Dry Head: Atraumatic, Normacephalic Eye(s): bilateral: Normal Inspection Oral Mucosa: Moist Neck: Supple Chest: Symmetrical Cardiovascular: Rhythm Regular Respiratory: Normal Breath Sounds, No Rales, No Rhonchi, No Wheezing Gastrointestinal/Abdominal: Normal Exam, Soft, No Tenderness, No Guarding, No Rebound Back: No CVA Tenderness Male Genital: Other (terrell catheter in place,draining clear yellow urine) Neurological/Psych: Oriented x3, Normal Speech Gait: Steady ED Course And Treatment O2 Sat by Pulse Oximetry: 95 (RA) Pulse Ox Interpretation: Normal Medical Decision Making Medical Decision Making: Nurse was able to successfully remove terrell catheter. Patient was able to urinate some after removal. Patient has been discharged and instructed to follow up with . Disposition Counseled Patient/Family Regarding: Diagnosis, Need For Followup - Disposition Referrals: Celestino Kingsley MD [Staff Provider] - Disposition: HOME/ ROUTINE Disposition Time: 14:44 Condition: GOOD Additional Instructions: ROMAIN BLACK, thank you for letting us take care of you today. Your provider was Tali Ward MD and you were treated for GROIN PAIN. The emergency medical care you received today was directed at your acute symptoms. Return to the Emergency Department immediately if you are unable to urinate or if you have any other problems. Please contact your doctor for a follow up appointment in 2 days. Bring any paperwork you were given at discharge with you along with any medications you are taking to your follow up visit. Our treatment cannot replace ongoing medical care by a primary care provider outside of the emergency department. Thank you for allowing the [facility] team to be part of your care today. Instructions: Urinary Retention (DC) Forms: [facility] ([place]), General Discharge Instructions - POA Present On Arrival: None - Clinical Impression Clinical Impression: Encounter for Terrell catheter removal, Urinary retention - Scribe Statement The provider has reviewed the documentation as recorded by the Emma Chapa Provider Attestation: All medical record entries made by the Scribe were at my direction and personally dictated by me. I have reviewed the chart and agree that the record accurately reflects my personal performance of the history, physical exam, medical decision making, and the department course for this patient. I have also personally directed, reviewed, and agree with the discharge instructions and disposition.
== END 2018-08-06 15:00 | disposition home or self-care (01) ==
LOC: C.ER 14:05
DX: Z46.6 Encounter for fitting and adjustment of urinary device (principal); R33.9 Retention of urine, unspecified